=== PATIENT | male | born 1950 | race Caucasian/White ===

== ENCOUNTER 2016-06-04 | Outpatient (CLI) | payer MEDICARE, OTHER | END 2016-06-04 14:34 | disposition critical access hospital (66) | CPT/HCPCS: A0425; A0427 ==

== ENCOUNTER 2016-06-04 14:48 | Inpatient (IN) | payer MEDICARE, OTHER ==
[2016-06-04] MEDS ORDERED: cefTRIAXone 1 GM in SODIUM CHLORIDE 0.9% MINIBAG 100 ML IV STA (15:17)
[2016-06-04] MEDS ORDERED: cefTRIAXone 1 GM VIAL ONE (15:21)
[2016-06-04] MEDS ORDERED: SODIUM CHLORIDE 0.9% 1,000 ML IV ONE (16:44)
[2016-06-04] MEDS ORDERED: ONDANSETRON 4 MG/2 ML VIAL IVP PRN ×2 (17:59→18:45)
[2016-06-04] MEDS ORDERED: SODIUM CHLORIDE FLUSH 0.9% 10 ML SYRINGE IVP PRN ×2 (17:59→18:45)
[2016-06-04] MEDS ORDERED: ONDANSETRON ODT 4 MG TABLET TL PRN ×2 (17:59→18:45)
[2016-06-04] MEDS ORDERED: SODIUM CHLORIDE 0.9% 1,000 ML IV SCH (18:00)
[2016-06-04] MEDS: DOCUSATE SODIUM 283 MG ENEMA PR SCH ×2 (19:18→19:19)
[2016-06-04] MEDS: SODIUM CHLORIDE 0.9% 1,000 ML IV SCH (20:02)
[2016-06-04] MEDS: INSULIN ASPART 300 UNIT/3 ML PEN SUBQ SCH (20:09)
[2016-06-04] MEDS: ASPIRIN EC 81 MG TABLET PO SCH (20:14)
[2016-06-04] MEDS: CHOLECALCIFEROL 1,000 UNIT TABLET PO SCH (20:14)
[2016-06-04] MEDS: METOPROLOL SUCCINATE 50 MG TABLET PO SCH (20:15)
[2016-06-04] MEDS ORDERED: INSULIN ASPART 300 UNIT/3 ML PEN SUBQ SCH (21:00)
[2016-06-04] MEDS ORDERED: METOPROLOL SUCCINATE 50 MG TABLET PO SCH (21:00)
[2016-06-04] MEDS ORDERED: INSULIN GLARGINE 300 UNIT/3 ML PEN SUBQ SCH (21:00)
[2016-06-04] MEDS ORDERED: NON FORMULARY MED (Cholecalciferol (Vitamin D3) [Vitamin D3] 1,000 UNIT) PO SCH (21:00)
[2016-06-04] MEDS ORDERED: tiZANidine 4 MG TABLET PO SCH (21:00)
[2016-06-04] MEDS ORDERED: BACLOFEN 10 MG TABLET PO SCH ×2 (21:00)
[2016-06-04] MEDS ORDERED: ASPIRIN EC 81 MG TABLET PO SCH (21:00)
[2016-06-04] MEDS: tiZANidine 4 MG TABLET PO SCH (21:11)
[2016-06-04] MEDS: SODIUM CHLORIDE FLUSH 0.9% 10 ML SYRINGE IVP SCH (21:46)
[2016-06-04] MEDS: INSULIN GLARGINE 300 UNIT/3 ML PEN SUBQ SCH (21:53)
[2016-06-04] MEDS ORDERED: SODIUM CHLORIDE FLUSH 0.9% 10 ML SYRINGE IVP SCH (22:00)
[2016-06-04] MEDS ORDERED: GABAPENTIN 300 MG CAPSULE PO SCH ×2 (22:00)
[2016-06-05] MEDS: SODIUM CHLORIDE 0.9% 1,000 ML IV SCH (06:30)
[2016-06-05] MEDS: SODIUM CHLORIDE FLUSH 0.9% 10 ML SYRINGE IVP SCH ×3 (06:31→21:52)
[2016-06-05] MEDS ORDERED: INSULIN GLARGINE 300 UNIT/3 ML PEN SUBQ SCH (08:00)
[2016-06-05] MEDS: INSULIN ASPART 300 UNIT/3 ML PEN SUBQ SCH ×4 (08:40→21:24)
[2016-06-05] MEDS ORDERED: NON FORMULARY MED (Multivitamin [Multivitamins] 1 TAB) PO SCH (09:00)
[2016-06-05] MEDS ORDERED: BACLOFEN 10 MG TABLET PO SCH ×2 (09:00→21:00)
[2016-06-05] MEDS ORDERED: POLYETHYLENE GLYCOL 3350 17 GM PACKET PO SCH (09:00)
[2016-06-05] MEDS ORDERED: cefTRIAXone 1 GM in SODIUM CHLORIDE 0.9% MINIBAG 100 ML IV SCH (09:00)
[2016-06-05] MEDS ORDERED: SERTRALINE 50 MG TABLET PO SCH (09:00)
[2016-06-05] MEDS ORDERED: POTASSIUM CHLORIDE 10 MEQ CAPSULE PO SCH (09:00)
[2016-06-05] MEDS: INSULIN GLARGINE 300 UNIT/3 ML PEN SUBQ SCH ×3 (09:29→21:23)
[2016-06-05] MEDS: POTASSIUM CHLORIDE 10 MEQ CAPSULE PO SCH (09:30)
[2016-06-05] MEDS: SERTRALINE 50 MG TABLET PO SCH (09:30)
[2016-06-05] MEDS: CHOLECALCIFEROL 1,000 UNIT TABLET PO SCH ×2 (09:30→21:19)
[2016-06-05] MEDS: MULTIVITAMIN TABLET PO SCH (09:30)
[2016-06-05] MEDS: BACLOFEN 10 MG TABLET PO SCH ×2 (09:30→17:38)
[2016-06-05] MEDS: POLYETHYLENE GLYCOL 3350 17 GM PACKET PO SCH (09:31)
[2016-06-05] MEDS: cefTRIAXone 1 GM in SODIUM CHLORIDE 0.9% MINIBAG 100 ML IV SCH (10:05)
[2016-06-05] MEDS ORDERED: GABAPENTIN 300 MG CAPSULE PO SCH ×3 (12:00→14:00)
[2016-06-05] MEDS ORDERED: COPAXONE 40 MG SCH (17:00)
[2016-06-05] MEDS: GABAPENTIN 300 MG CAPSULE PO SCH ×2 (17:37→21:50)
[2016-06-05] MEDS ORDERED: ATORVASTATIN 10 MG TABLET PO SCH (21:00)
[2016-06-05] MEDS: tiZANidine 4 MG TABLET PO SCH (21:18)
[2016-06-05] MEDS: ASPIRIN EC 81 MG TABLET PO SCH (21:49)
[2016-06-05] MEDS: METOPROLOL SUCCINATE 50 MG TABLET PO SCH (21:50)
[2016-06-05] MEDS: DOCUSATE SODIUM 283 MG ENEMA PR SCH (21:56)
[2016-06-06] MEDS: cefTRIAXone 1 GM in SODIUM CHLORIDE 0.9% MINIBAG 100 ML IV SCH (08:56)
[2016-06-06] MEDS: POLYETHYLENE GLYCOL 3350 17 GM PACKET PO SCH (08:56)
[2016-06-06] MEDS: CHOLECALCIFEROL 1,000 UNIT TABLET PO SCH (08:56)
[2016-06-06] MEDS: GABAPENTIN 300 MG CAPSULE PO SCH (08:56)
[2016-06-06] MEDS: SERTRALINE 50 MG TABLET PO SCH (08:57)
[2016-06-06] MEDS: BACLOFEN 10 MG TABLET PO SCH (08:57)
[2016-06-06] MEDS: POTASSIUM CHLORIDE 10 MEQ CAPSULE PO SCH (08:57)
[2016-06-06] MEDS: MULTIVITAMIN TABLET PO SCH (08:57)
[2016-06-06] MEDS: INSULIN ASPART 300 UNIT/3 ML PEN SUBQ SCH (08:58)
[2016-06-06] MEDS: INSULIN GLARGINE 300 UNIT/3 ML PEN SUBQ SCH (08:59)
[2016-06-06] MEDS ORDERED: LISINOPRIL 20 MG TABLET PO SCH (09:00)
[2016-06-06] MEDS ORDERED: LISINOPRIL 5 MG TABLET PO SCH (09:00)
== END 2016-06-06 09:38 | disposition home or self-care (01) | DRG 70 ==
DX: G93.41 Metabolic encephalopathy (principal); R53.2 Functional quadriplegia; T83.510A Infection and inflammatory reaction due to cystostomy catheter, initial encounter; I20.9 Angina pectoris, unspecified; N18.4 Chronic kidney disease, stage 4 (severe); E11.9 Type 2 diabetes mellitus without complications; N28.9 Disorder of kidney and ureter, unspecified; B95.2 Enterococcus as the cause of diseases classified elsewhere; G81.90 Hemiplegia, unspecified affecting unspecified side; Z86.73 Personal history of transient ischemic attack (TIA), and cerebral infarction without residual deficits; E86.0 Dehydration; N31.9 Neuromuscular dysfunction of bladder, unspecified; G35 Multiple sclerosis; F09 Unspecified mental disorder due to known physiological condition; E11.22 Type 2 diabetes mellitus with diabetic chronic kidney disease; I12.9 Hypertensive chronic kidney disease with stage 1 through stage 4 chronic kidney disease, or unspecified chronic kidney disease; E11.65 Type 2 diabetes mellitus with hyperglycemia; D51.9 Vitamin B12 deficiency anemia, unspecified; E78.5 Hyperlipidemia, unspecified; F32.9 Major depressive disorder, single episode, unspecified; M26.609 Unspecified temporomandibular joint disorder, unspecified side; G50.0 Trigeminal neuralgia; Z87.440 Personal history of urinary (tract) infections; M25.512 Pain in left shoulder; M25.511 Pain in right shoulder; Z79.4 Long term (current) use of insulin; Z79.82 Long term (current) use of aspirin; Z79.899 Other long term (current) drug therapy; Z66 Do not resuscitate

== ENCOUNTER 2017-02-08 15:29 | Outpatient (CLI) | payer MEDICARE, OTHER ==
[2017-02-08 12:50] LABS: BASOPHILS % (AUTO) 0.3 %; EOSINOPHILS # (AUTO) 0.3 10^3/uL (0.0-0.7); EOSINOPHILS % (AUTO) 4.6 %; HCT - HEMATOCRIT 34.4 % (42.0-52.0); HGB - HEMOGLOBIN 11.5 g/dL (14.0-18.0); LYMPHOCYTES # (AUTO) 1.7 10^3/uL (1.5-3.5); LYMPHOCYTES % (AUTO) 28.4 %; MEAN CORPUSCULAR HEMOGLOBIN 28.2 pg (27.0-31.0); MEAN CORPUSCULAR HGB CONC 33.4 g/dL (32.0-36.0); MEAN CORPUSCULAR VOLUME 84.6 fL (80.0-94.0); MEAN PLATELET VOLUME 8.3 fL (7.4-11.4); MONOCYTES # (AUTO) 0.4 10^3/uL (0.0-1.0); MONOCYTES % (AUTO) 6.9 %; NEUTROPHILS # (AUTO) 3.6 10^3/uL (1.5-6.6); NEUTROPHILS % (AUTO) 59.8 %; RED BLOOD COUNT 4.06 10^6/uL (4.70-6.10)
[2017-02-08 13:16] LABS: ALBUMIN/GLOBULIN RATIO 1.1 (1.0-2.2); BILIRUBIN,TOTAL 0.3 mg/dL (0.2-1.0); BUN - BLOOD UREA NITROGEN 29 mg/dL (6-20); CALCIUM 8.9 mg/dL (8.5-10.3); CARBON DIOXIDE - CO2 29 mmol/L (21-32); CHLORIDE 98 mmol/L (101-111); CHOL/HDL RATIO 3.9 (<5.0); CHOLESTEROL 131 mg/dL; CREATININE 1.2 mg/dL (0.6-1.2); GFR - MDRD 60 (>89); GLUCOSE 140 mg/dL (70-100); HDL CHOLESTEROL 34 mg/dL; LDL/HDL RATIO 2.1 (<3.6); MAGNESIUM 2.3 mg/dL (1.7-2.8); PHOSPHORUS 3.6 mg/dL (2.5-4.6); POTASSIUM 4.3 mmol/L (3.5-5.0); SODIUM 135 mmol/L (135-145); TOTAL PROTEIN 7.5 g/dL (6.7-8.2); TRIGLYCERIDES 119 mg/dL; VLDL CHOLESTEROL 24 mg/dL
[2017-02-08 14:01] LABS: HEMOGLOBIN A1C 0.88 g/dL
== END 2017-02-08 15:30 | disposition home or self-care (01) ==
LOC: LAB.WCP 15:29
PROVIDERS: ATTEND Family Medicine
DX: I10 Essential (primary) hypertension (principal); E11.9 Type 2 diabetes mellitus without complications; Z12.5 Encounter for screening for malignant neoplasm of prostate
CPT/HCPCS: 36415; 80053; 80061; 82043; 83036; 83735; 84100; 84443; 85025; G0103; 84153

== ENCOUNTER 2017-04-20 11:59 | Outpatient (CLI) | payer MEDICARE, OTHER | END 2017-04-20 12:00 | disposition EMS.NT | LOC: EMS 11:59 | PROVIDERS: ATTEND Surgery | DX: Z03.89 Encounter for observation for other suspected diseases and conditions ruled out (principal); W17.89XA Other fall from one level to another, initial encounter; Y92.002 Bathroom of unspecified non-institutional (private) residence as the place of occurrence of the external cause ==

== ENCOUNTER 2017-06-27 12:59 | Outpatient (CLI) | payer MEDICARE, OTHER ==
--- NOTE | 2017-06-27 17:19 | Ultrasound Report ---
RETROPERITONEAL ULTRASOUND: 06/27/2017 CLINICAL INDICATION: Followup cyst. TECHNIQUE: Real-time scanning was performed with sales account representative static images obtained. FINDINGS: The right kidney measures 10.1 x 5.0 x 4.7 cm. No focal renal lesion, hydronephrosis, or perinephric collection is present. The left kidney measures 11.5 x 4.7 x 3.9 cm. There is a 5.0 cm cyst, slightly increased in diameter from 02/11/2014, when it measured 4.6 cm. No hydronephrosis, solid renal lesion, or perinephric collection is seen. With the patient's Thomas clamped, the urinary bladder measured 11.2 x 8.3 x 0.1 cm. The bladder wall appears normal. Bilateral ureteral jets are visualized. Following unclamping of the Thomas, no residual is seen. IMPRESSION: SLIGHT INTERVAL INCREASE IN SIZE OF LEFT RENAL CYST. NO SOLID MASS IS IDENTIFIED. TD: 06/27/2017 17:18
== END 2017-06-27 13:00 | disposition home or self-care (01) ==
LOC: DI 12:59
PROVIDERS: ATTEND Physical Medicine & Rehabilitation
DX: Q61.01 Congenital single renal cyst (principal)
CPT/HCPCS: 76770

== ENCOUNTER 2017-08-24 19:53 | Outpatient (CLI) | payer MEDICARE, OTHER | END 2017-08-24 19:54 | disposition critical access hospital (66) | LOC: EMS 19:53 | PROVIDERS: ATTEND Surgery | DX: R53.1 Weakness (principal); R53.83 Other fatigue; R11.0 Nausea | CPT/HCPCS: A0425; A0427 ==

== ENCOUNTER 2017-08-24 20:09 | Emergency (ER) | payer MEDICARE, OTHER ==
[2017-08-24 21:31] LABS: BASOPHILS % (AUTO) 0.4 %; EOSINOPHILS # (AUTO) 0.3 10^3/uL (0.0-0.7); HGB - HEMOGLOBIN 11.6 g/dL (14.0-18.0); LYMPHOCYTES # (AUTO) 1.3 10^3/uL (1.5-3.5); LYMPHOCYTES % (AUTO) 14.4 %; MEAN CORPUSCULAR HEMOGLOBIN 28.2 pg (27.0-31.0); MEAN CORPUSCULAR HGB CONC 32.9 g/dL (32.0-36.0); MEAN CORPUSCULAR VOLUME 85.7 fL (80.0-94.0); MEAN PLATELET VOLUME 7.4 fL (7.4-11.4); MONOCYTES # (AUTO) 0.6 10^3/uL (0.0-1.0); MONOCYTES % (AUTO) 6.8 %; NEUTROPHILS % (AUTO) 75.4 %; PLT - PLATELET COUNT 291 10^3/uL (130-450); RED BLOOD COUNT 4.11 10^6/uL (4.70-6.10); RED CELL DISTRIBUTION WIDTH 13.8 % (12.0-15.0); WHITE BLOOD COUNT 9.3 x10^3/uL (4.8-10.8)
--- NOTE | 2017-08-24 21:33 | ED Physician Documentation ---
History of Present Illness - Stated complaint Stated Complaint: WEAKNESS, NAUSEA - Chief complaint Chief Complaint: General - History obtained from History obtained from: Patient - History of Present Illness Timing: Prior to arrival Pain level max: 0 Pain level now: 0 Improved by: no apparent ameliorating factors; spontaneously resolved Worsened by: no apparent inciting or excacerbating factors - Additonal information Additional information: while watching a game on TV at home tonight, patient had sudden onset nausea ( no vomiting) and confusion. The HPI he provides is vague and thus difficult to determine exactly what the deficit was but was concerned enough to call 911. Patient says while in ambulance, he suddenly felt "back to normal" (per patient) and was able to converse normally with them. He arrives to ED asymptomatic. Review of Systems Constitutional: reports: Reviewed and negative Eyes: reports: Reviewed and negative Ears: reports: Reviewed and negative Nose: reports: Reviewed and negative Throat: reports: Reviewed and negative Cardiac: reports: Reviewed and negative Respiratory: reports: Reviewed and negative GI: reports: Reviewed and negative : denies: Dysuria, Frequency Musculoskeletal: denies: Neck pain, Back pain Neurologic: reports: Focal weakness (chronic BLE (due to MS)), Altered mental status (resolved). denies: Numbness, Headache PD PAST MEDICAL HISTORY - Past Medical History Past Medical History: Yes Cardiovascular: Angina Respiratory: Asthma Neuro: TIA, Multiple sclerosis Endocrine/Autoimmune: Type 2 diabetes GI: Esophageal varices : Renal insuffiency Psych: Depression Musculoskeletal: Hemiplegia Derm: Psoriasis - Past Surgical History Past Surgical History: Yes General: Cholecystectomy - Present Medications Home Medications: Ambulatory Orders Medication Instructions Recorded Confirmed Gabapentin [Neurontin] 600 mg PO 1200,1400 09/02/12 06/25/17 Sertraline HCl [Zoloft] 50 mg PO DAILY 09/02/12 06/25/17 Tizanidine HCl 8 mg PO QPM 09/02/12 06/25/17 Insulin Aspart [Novolog Flexpen] 0 - 10 units SUBQ TIDWM 10/20/14 06/25/17 Insulin Glargine [Lantus Solostar] 40 units SUBQ 0800,2100 10/20/14 06/25/17 Baclofen 20 mg PO 0900,1700 03/01/16 06/25/17 Baclofen 60 mg PO QPM 03/01/16 06/25/17 Gabapentin 300 mg PO 0800,1700,2100 03/01/16 06/25/17 Metoprolol Succinate [Toprol Xl] 50 mg PO QPM 03/01/16 06/25/17 Lisinopril 45 mg PO DAILY 06/05/16 06/25/17 Simvastatin 40 mg PO QPM 06/05/16 06/25/17 carBAMazepine [TEGretol] 100 mg PO DAILY 02/24/17 06/25/17 carBAMazepine [TEGretol] 200 mg PO BID #120 tablet 02/24/17 06/25/17 Ciprofloxacin HCl [Cipro] 500 mg PO BID #13 tablet 08/24/17 - Allergies Allergies/Adverse Reactions: Allergies Allergy/AdvReac Type Severity Reaction Status Date / Time metformin HCl * Allergy Unknown Rash Verified 08/24/17 20:25 [From Glucophage] tamsulosin HCl * Allergy Unknown Rash Verified 08/24/17 20:25 [From Flomax] - Social History Does the pt smoke?: No Smoking Status: Never smoker Does the pt drink ETOH?: No Does the pt have substance abuse?: No - Immunizations Immunizations are current?: No Immunizations: TDAP >10years/unknown - POLST Patient has POLST: Yes PD ED PE NORMAL - Vitals Vital signs reviewed: Yes - General General: Alert and oriented X 3, No acute distress, Well developed/nourished - HEENT HEENT: PERRL, EOMI, Moist mucous membranes - Neck Neck: Supple, no meningeal sign - Cardiac Cardiac: RRR, No murmur, No gallop, No rub - Respiratory Respiratory: No respiratory distress, Clear bilaterally - Abdomen Abdomen: Soft, Non tender - Back Back: No CVA TTP - Derm Derm: Normal color, Warm and dry - Neuro Neuro: Alert and oriented X 3, inbound sales advisor 2-12 intact, No motor deficit (BUE normal strength (BLE 2/5 iliopsoas, which is chronic)), No sensory deficit, Normal speech Eye Opening: Spontaneous Motor: Obeys Commands Verbal: Oriented GCS Score: 15 Results - Vitals Vitals: Vital Signs - 24 hr 08/24/17 08/24/17 08/24/17 20:18 21:15 21:25 Temperature 36.2 C L Heart Rate 67 66 Respiratory 18 17 17 Rate Blood Pressure 107/58 L O2 Saturation 97 99 08/24/17 08/24/17 08/24/17 22:15 22:33 23:13 Temperature Heart Rate 70 71 Respiratory 16 16 16 Rate Blood Pressure 120/70 132/54 H O2 Saturation 98 15 L Oxygen O2 Source Room air - EKG (time done) No standard instances Rate: Rate (enter#) (66) Rhythm: NSR [place]: Normal Intervals: Normal [place] QRS: Normal Ischemia: Normal ST segments, Non specific changes (non specific ST changes V2 V3 which are unchanged compared to previous (both 02/29/16 and 02/26/16)) Compare to prior EKG: Unchanged from prior EKG - Labs Labs: Laboratory Tests 08/24/17 08/24/17 08/24/17 21:10 21:25 21:25 WBC 9.3 RBC 4.11 L Hgb 11.6 L Hct 35.2 L MCV 85.7 MCH 28.2 MCHC 32.9 RDW 13.8 Plt Count 291 MPV 7.4 Neut # 7.0 H Lymph # 1.3 L [place] # 0.6 Eos # 0.3 Baso # 0.0 Absolute Nucleated RBC 0.00 Nucleated RBC % 0.0 Sodium 134 L Potassium 4.2 Chloride 97 L Carbon Dioxide 28 Anion Gap 9.0 BUN 27 H Creatinine 1.3 H Estimated GFR (MDRD) 55 L Glucose 260 H Calcium 8.6 Troponin I Urine Color YELLOW Urine Clarity CLOUDY Urine pH 5.5 Ur Specific [place] 1.020 Urine Protein NEGATIVE Urine Glucose (UA) NEGATIVE Urine Ketones NEGATIVE Urine Occult Blood MODERATE H Urine Nitrite NEGATIVE Urine Bilirubin NEGATIVE Urine Urobilinogen 0.2 (NORMAL) Ur Leukocyte Esterase MODERATE H Urine RBC TNTC H Urine WBC >25 H Urine WBC Clumps PRESENT Ur Squamous Epith Cells RARE Squamous Amorphous Sediment Few Urine Bacteria Many H Urine Mucus Few Strands Ur Microscopic Review INDICATED Urine Culture Comments INDICATED 08/24/17 21:25 WBC RBC Hgb Hct MCV MCH MCHC RDW Plt Count MPV Neut # Lymph # [place] # Eos # Baso # Absolute Nucleated RBC Nucleated RBC % Sodium Potassium Chloride Carbon Dioxide Anion Gap BUN Creatinine Estimated GFR (MDRD) Glucose Calcium Troponin I < 0.04 Urine Color Urine Clarity Urine pH Ur Specific [place] Urine Protein Urine Glucose (UA) Urine Ketones Urine Occult Blood Urine Nitrite Urine Bilirubin Urine Urobilinogen Ur Leukocyte Esterase Urine RBC Urine WBC Urine WBC Clumps Ur Squamous Epith Cells Amorphous Sediment Urine Bacteria Urine Mucus Ur Microscopic Review Urine Culture Comments - Rads (name of study) CT head Radiology: Prelim report reviewed, See rad report PD MEDICAL DECISION MAKING - ED course Complexity details: reviewed results, re-evaluated patient, considered differential, d/w patient ED course: Remained asymptomatic during ED stay. Requests D/C home. Departure - Departure Disposition: Home, Self Care Clinical Impression: Confused Condition: Good Instructions: ED Altered Loc, ED Confusion, ED UTI Cystitis Male Follow-Up: Denis Mccall MD [Provider Admit Priv/Credential] - Prescriptions: Ciprofloxacin HCl [Cipro] 500 mg PO BID #13 tablet Discharge Date/Time: 08/24/17 23:14
[2017-08-24 21:34] LABS: BILIRUBIN,URINE NEGATIVE (NEGATIVE); GLUCOSE, URINE (UA) NEGATIVE (NEGATIVE); KETONES,URINE (UA) NEGATIVE (NEGATIVE); LEUKOCYTE ESTERASE, URINE MODERATE (NEGATIVE); NITRITE,URINE NEGATIVE (NEGATIVE); OCCULT BLOOD,URINE MODERATE (NEGATIVE); PH,URINE 5.5 PH (5.0-7.5); PROTEIN,URINE NEGATIVE (NEGATIVE); UROBILINOGEN,URINE 0.2 (NORMAL) E.U./dL (NORMAL)
[2017-08-24 21:39] LABS: CALCIUM 8.6 mg/dL (8.5-10.3); CREATININE 1.3 mg/dL (0.6-1.2)
[2017-08-24 21:44] LABS: AMORPHOUS SEDIMENT,UR Few /LPF; BACTERIA,URINE Many /HPF (None Seen); CLARITY,URINE CLOUDY (CLEAR); MUCUS,URINE Few Strands; RBC,URINE TNTC /HPF (0-5); SQUAMOUS EPITHELIAL CELL,UR RARE Squamous (<= Few); WBC CLUMPS,URINE PRESENT
--- NOTE | 2017-08-24 22:18 | CT Preliminary Report ---
Exam: CT HEAD W/O IMPRESSION: Generalized age-related cortical atrophic changes without evidence of acute intracranial abnormality. [facility] SITE ID: [id number]
--- NOTE | 2017-08-24 22:26 | CT Report ---
EXAM: CT HEAD EXAM DATE: 08/24/2017 10:09 PM. CLINICAL HISTORY: Altered mental status. COMPARISON: Brain CT from 03/25/2015. TECHNIQUE: Multiaxial CT images were obtained from the foramen magnum to the vertex. Reformats: Coron al. IV contrast: None. In accordance with CT protocol optimization, one or more of the following dose reduction techniques w ere utilized for this exam: automated exposure control, adjustment of mA and/or KV based on patient s ize, or use of iterative reconstructive technique. FINDINGS: Parenchyma: No intraparenchymal hemorrhage. No evidence of mass, midline shift, or CT findings of acu te infarction. Pavon-white differentiation is distinct. Mild diffuse chronic microangiopathic white ma tter changes are evident. Extraaxial Spaces: Normal for age. No subdural or epidural collections identified. Ventricles: The ventricles and cortical sulci are moderately enlarged, consistent with age-related ti ssue loss. Sinuses and orbits: There is new mucosal thickening in the right frontal sinus without an air-fluid l evel. Postsurgical changes from cataract extractions are again noted in the globes. The mastoid sinus es are unremarkable. Bones: No evidence of fracture or calvarial defect. Other: Moderate intracranial atherosclerosis is noted. IMPRESSION: Generalized age-related cortical atrophic changes without evidence of acute intracranial abnormality. [facility] Referring Provider Line: [phone] SITE ID: [id number]
[2017-08-24 22:33] VITALS: BP 132/54
[2017-08-24] MEDS ORDERED: CIPROFLOXACIN 250 MG TABLET PO STA (22:49)
== END 2017-08-24 23:14 | disposition home or self-care (01) ==
LOC: EDUNIT# → ED 20:09
DX: R41.0 Disorientation, unspecified (principal); G35 Multiple sclerosis; G81.90 Hemiplegia, unspecified affecting unspecified side; E11.9 Type 2 diabetes mellitus without complications; Z79.4 Long term (current) use of insulin; Z86.73 Personal history of transient ischemic attack (TIA), and cerebral infarction without residual deficits
CPT/HCPCS: 36415; 70450; 80048; 81001; 84484; 85025; 87077; 87086; 87181; 93005; 99284; A9270; 81003

== ENCOUNTER 2018-03-15 10:01 | Outpatient (CLI) | payer MEDICARE, OTHER | END 2018-03-15 10:02 | disposition EMS.NT | LOC: EMS 10:01 | PROVIDERS: ATTEND Surgery | DX: Z03.89 Encounter for observation for other suspected diseases and conditions ruled out (principal) ==

== ENCOUNTER 2018-07-21 23:34 | Outpatient (CLI) | payer MEDICARE, OTHER | END 2018-07-21 23:35 | disposition critical access hospital (66) | LOC: EMS 23:34 | PROVIDERS: ATTEND Surgery | DX: R41.0 Disorientation, unspecified (principal); E11.65 Type 2 diabetes mellitus with hyperglycemia; Z79.4 Long term (current) use of insulin | CPT/HCPCS: A0425; A0429 ==

== ENCOUNTER 2018-07-21 23:53 | Emergency (ER) | payer MEDICARE, OTHER ==
[2018-07-22 00:31] LABS: BILIRUBIN,URINE NEGATIVE (NEGATIVE); GLUCOSE, URINE (UA) 250 mg/dL (NEGATIVE); KETONES,URINE (UA) NEGATIVE (NEGATIVE); LEUKOCYTE ESTERASE, URINE MODERATE (NEGATIVE); NITRITE,URINE POSITIVE (NEGATIVE); OCCULT BLOOD,URINE MODERATE (NEGATIVE); PH,URINE 5.5 PH (5.0-7.5); PROTEIN,URINE TRACE mg/dL (NEGATIVE); UROBILINOGEN,URINE 0.2 (NORMAL) E.U./dL (NORMAL)
[2018-07-22 00:32] LABS: CLARITY,URINE SL. CLOUDY (CLEAR)
[2018-07-22 00:37] LABS: BACTERIA,URINE Many /HPF (None Seen); EPITHELIAL CELLS,UR None Seen /HPF (<= Few); RBC,URINE 0-5 /HPF (0-5)
[2018-07-22 00:38] LABS: SQUAMOUS EPITHELIAL CELL,UR NONE SEEN (<= Few)
--- NOTE | 2018-07-22 00:50 | ED Physician Documentation ---
History of Present Illness - Stated complaint Stated Complaint: AMS - Chief complaint Chief Complaint: General - History obtained from History obtained from: Patient, Family, EMS - History of Present Illness Timing: Today - Additonal information Additional information: BIBA; per medic report, called 911 because patient "hasn't been himself" today. Patient tells me he feels well and has no c/o. Family is not in ED to provide further HPI/ROS. Review of Systems Constitutional: denies: Fever, Chills, Sweats Cardiac: reports: Reviewed and negative Respiratory: reports: Reviewed and negative GI: reports: Reviewed and negative : reports: Reviewed and negative (has indwelling marion catheter) Neurologic: denies: Generalized weakness, Focal weakness, Numbness, Confused, Altered mental status, Headache PD PAST MEDICAL HISTORY - Past Medical History Cardiovascular: Angina Respiratory: Asthma Endocrine/Autoimmune: Type 2 diabetes GI: Esophageal varices : Renal insuffiency Psych: Depression Musculoskeletal: Hemiplegia Derm: Psoriasis - Past Surgical History Past Surgical History: Yes General: Cholecystectomy - Present Medications Home Medications: Ambulatory Orders Medication Instructions Recorded Confirmed Gabapentin [Neurontin] 600 mg PO 1200,1400 09/02/12 06/21/18 Sertraline HCl [Zoloft] 50 mg PO DAILY 09/02/12 06/21/18 Tizanidine HCl 8 mg PO QPM 09/02/12 06/21/18 Insulin Aspart [Novolog Flexpen] 0 - 10 units SUBQ TIDWM 10/20/14 06/21/18 Insulin Glargine [Lantus Solostar] 40 units SUBQ 0800,2100 10/20/14 06/21/18 Baclofen 20 mg PO 0900,1700 03/01/16 06/21/18 Baclofen 60 mg PO QPM 03/01/16 06/21/18 Gabapentin 300 mg PO 0800,1700,2100 03/01/16 06/21/18 Metoprolol Succinate [Toprol Xl] 50 mg PO QPM 03/01/16 06/21/18 Lisinopril 45 mg PO DAILY 06/05/16 06/21/18 Simvastatin 40 mg PO QPM 06/05/16 06/21/18 carBAMazepine [TEGretol] 100 mg PO DAILY 02/24/17 06/21/18 carBAMazepine [TEGretol] 200 mg PO BID #120 tablet 02/24/17 06/21/18 Ciprofloxacin HCl [Cipro] 500 mg PO BID #13 tablet 08/24/17 06/21/18 Levofloxacin [Levaquin] 750 mg PO DAILY #7 tablet 07/22/18 - Allergies Allergies/Adverse Reactions: Allergies Allergy/AdvReac Type Severity Reaction Status Date / Time metformin HCl * Allergy Unknown Rash Verified 06/21/18 13:25 [From Glucophage] tamsulosin HCl * Allergy Unknown Rash Verified 06/21/18 13:25 [From Flomax] - Social History Does the pt smoke?: No Smoking Status: Never smoker Does the pt drink ETOH?: No Does the pt have substance abuse?: No - Immunizations Immunizations are current?: No Immunizations: TDAP >10years/unknown - POLST Patient has POLST: Yes PD ED PE NORMAL - Vitals Vital signs reviewed: Yes - General General: Alert and oriented X 3, No acute distress, Well developed/nourished - HEENT HEENT: PERRL, EOMI, Moist mucous membranes - Neck Neck: Supple, no meningeal sign - Cardiac Cardiac: RRR, No murmur - Respiratory Respiratory: No respiratory distress, Clear bilaterally - Abdomen Abdomen: Soft, Non tender - Male Male : Other (marion catheter in place with leg bag) - Back Back: No CVA TTP Results - Vitals Vitals: Oxygen O2 Source Room air - Labs Labs: Microbiology 07/22/18 00:05 Urine Culture - Final Urine,Catheterized Serratia Marcescens Laboratory Tests 07/22/18 07/22/18 07/22/18 00:05 01:34 01:34 WBC 13.0 H RBC 3.84 L Hgb 11.0 L Hct 33.0 L MCV 86.1 MCH 28.6 MCHC 33.2 RDW 14.4 Plt Count 255 MPV 7.5 Neut # (Auto) 10.3 H Lymph # (Auto) 1.5 [place] # (Auto) 1.0 Eos # (Auto) 0.1 Baso # (Auto) 0.0 Absolute Nucleated RBC 0.00 Nucleated RBC % 0.0 Sodium 136 Potassium 4.5 Chloride 99 L Carbon Dioxide 28 Anion Gap 9.0 BUN 52 H Creatinine 1.7 H Estimated GFR (MDRD) 40 L Glucose 299 H Lactic Acid Calcium 9.1 Urine Color YELLOW Urine Clarity SL. CLOUDY Urine pH 5.5 Ur Specific [place] 1.025 Urine Protein TRACE Urine Glucose (UA) 250 H Urine Ketones NEGATIVE Urine Occult Blood MODERATE H Urine Nitrite POSITIVE H Urine Bilirubin NEGATIVE Urine Urobilinogen 0.2 (NORMAL) Ur Leukocyte Esterase MODERATE H Urine RBC 0-5 Urine WBC >25 H Ur Epithelial Cells None Seen Ur Squamous Epith Cells NONE SEEN Urine Bacteria Many H Ur Microscopic Review INDICATED Urine Culture Comments INDICATED 07/22/18 01:34 WBC RBC Hgb Hct MCV MCH MCHC RDW Plt Count MPV Neut # (Auto) Lymph # (Auto) [place] # (Auto) Eos # (Auto) Baso # (Auto) Absolute Nucleated RBC Nucleated RBC % Sodium Potassium Chloride Carbon Dioxide Anion Gap BUN Creatinine Estimated GFR (MDRD) Glucose Lactic Acid 1.1 Calcium Urine Color Urine Clarity Urine pH Ur Specific [place] Urine Protein Urine Glucose (UA) Urine Ketones Urine Occult Blood Urine Nitrite Urine Bilirubin Urine Urobilinogen Ur Leukocyte Esterase Urine RBC Urine WBC Ur Epithelial Cells Ur Squamous Epith Cells Urine Bacteria Ur Microscopic Review Urine Culture Comments PD MEDICAL DECISION MAKING - ED course Complexity details: reviewed results, re-evaluated patient, considered diff erential, d/w patient ED course: UA c/w UTI. During ED stay (held for several hours pending ride from family in the AM), he rested comfortably and quietly. I checked on him several times during ED stay, and he was consistently easily awoken to verbal stimulus and had no c/o, felt he was "fine" (per patient), and was AAOx3. Departure - Departure Disposition: 01 Home, Self Care Clinical Impression: UTI (urinary tract infection) Qualifiers: Urinary tract infection type: catheter-associated UTI Indwelling urinary catheter type: indwelling urethral catheter Encounter type: initial encounter Qualified Code(s): T83.511A - Infection and inflammatory reaction due to indwelling urethral catheter, initial encounter Condition: Good Instructions: ED UTI Cystitis Male Follow-Up: Denis Mccall MD [Primary Care Provider] - Prescriptions: Levofloxacin [Levaquin] 750 mg PO DAILY #7 tablet Discharge Date/Time: 07/22/18 09:11
[2018-07-22 01:42] LABS: BASOPHILS % (AUTO) 0.4 %; EOSINOPHILS # (AUTO) 0.1 10^3/uL (0.0-0.7); EOSINOPHILS % (AUTO) 1.1 %; LYMPHOCYTES # (AUTO) 1.5 10^3/uL (1.5-3.5); LYMPHOCYTES % (AUTO) 11.7 %; MEAN CORPUSCULAR HEMOGLOBIN 28.6 pg (27.0-31.0); MEAN CORPUSCULAR HGB CONC 33.2 g/dL (32.0-36.0); MEAN CORPUSCULAR VOLUME 86.1 fL (80.0-94.0); MEAN PLATELET VOLUME 7.5 fL (7.4-11.4); MONOCYTES % (AUTO) 7.8 %; NEUTROPHILS # (AUTO) 10.3 10^3/uL (1.5-6.6); PLT - PLATELET COUNT 255 10^3/uL (130-450); RED BLOOD COUNT 3.84 10^6/uL (4.70-6.10); RED CELL DISTRIBUTION WIDTH 14.4 % (12.0-15.0)
[2018-07-22 01:49] LABS: CALCIUM 9.1 mg/dL (8.5-10.3); CREATININE 1.7 mg/dL (0.6-1.2)
[2018-07-22] MEDS: cefTRIAXone 1 GM in SODIUM CHLORIDE 0.9% MINIBAG 100 ML IV STA (02:18)
[2018-07-22 09:11] VITALS: BP 154/74
== END 2018-07-22 09:11 | disposition home or self-care (01) ==
LOC: EDUNIT# → EDBD → ED 23:53
DX: T83.511A Infection and inflammatory reaction due to indwelling urethral catheter, initial encounter (principal); E11.9 Type 2 diabetes mellitus without complications; G81.90 Hemiplegia, unspecified affecting unspecified side; Z79.4 Long term (current) use of insulin
CPT/HCPCS: 36415; 80048; 81001; 81003; 83605; 85025; 87077; 87086; 87181; 96365; 99283

== ENCOUNTER 2018-07-26 14:20 | Outpatient (CLI) | payer MEDICARE, OTHER | END 2018-07-26 14:21 | disposition critical access hospital (66) | LOC: EMS 14:20 | PROVIDERS: ATTEND Surgery | DX: R41.82 Altered mental status, unspecified (principal); R53.1 Weakness; Z96.0 Presence of urogenital implants | CPT/HCPCS: A0425; A0429 ==

== ENCOUNTER 2018-07-26 14:39 | Emergency (ER) | payer MEDICARE, OTHER ==
[2018-07-26] MEDS ORDERED: SODIUM CHLORIDE 0.9% 1,000 ML IV ONE (15:19)
[2018-07-26] MEDS ORDERED: cefTRIAXone 2 GM in SODIUM CHLORIDE 0.9% MINIBAG 100 ML IV STA (15:19)
[2018-07-26 15:33] LABS: BILIRUBIN,URINE NEGATIVE (NEGATIVE); GLUCOSE, URINE (UA) NEGATIVE (NEGATIVE); KETONES,URINE (UA) NEGATIVE (NEGATIVE); LEUKOCYTE ESTERASE, URINE MODERATE (NEGATIVE); NITRITE,URINE NEGATIVE (NEGATIVE); OCCULT BLOOD,URINE MODERATE (NEGATIVE); PH,URINE 5.5 PH (5.0-7.5); PROTEIN,URINE NEGATIVE (NEGATIVE); UROBILINOGEN,URINE 0.2 (NORMAL) E.U./dL (NORMAL)
[2018-07-26 15:34] LABS: ALBUMIN 3.5 g/dL (3.2-5.5); ALBUMIN/GLOBULIN RATIO 0.9 (1.0-2.2); BASOPHILS % (AUTO) 0.4 %; BILIRUBIN,TOTAL 0.3 mg/dL (0.2-1.0); CALCIUM 8.5 mg/dL (8.5-10.3); CREATININE 2.5 mg/dL (0.6-1.2); EOSINOPHILS # (AUTO) 0.3 10^3/uL (0.0-0.7); EOSINOPHILS % (AUTO) 4.1 %; HGB - HEMOGLOBIN 10.1 g/dL (14.0-18.0); LYMPHOCYTES # (AUTO) 1.2 10^3/uL (1.5-3.5); LYMPHOCYTES % (AUTO) 14.8 %; MAGNESIUM 2.6 mg/dL (1.7-2.8); MEAN CORPUSCULAR HEMOGLOBIN 28.4 pg (27.0-31.0); MEAN CORPUSCULAR HGB CONC 33.2 g/dL (32.0-36.0); MEAN CORPUSCULAR VOLUME 85.5 fL (80.0-94.0); MEAN PLATELET VOLUME 7.9 fL (7.4-11.4); MONOCYTES # (AUTO) 0.6 10^3/uL (0.0-1.0); MONOCYTES % (AUTO) 6.7 %; NEUTROPHILS # (AUTO) 6.2 10^3/uL (1.5-6.6); PLT - PLATELET COUNT 257 10^3/uL (130-450); RED BLOOD COUNT 3.55 10^6/uL (4.70-6.10); TOTAL PROTEIN 7.5 g/dL (6.7-8.2); WHITE BLOOD COUNT 8.3 x10^3/uL (4.8-10.8)
[2018-07-26 15:41] LABS: BACTERIA,URINE Rare /HPF (None Seen); CLARITY,URINE CLEAR (CLEAR); RBC,URINE 0-5 /HPF (0-5); SQUAMOUS EPITHELIAL CELL,UR FEW Squamous (<= Few)
--- NOTE | 2018-07-26 17:24 | ED Physician Documentation ---
PD HPI ALTERED MENTAL STATUS - Stated complaint Stated Complaint: ALOC - Chief complaint Chief Complaint: Neuro - History obtained from History obtained from: Patient, EMS - History of Present Illness Timing - onset: Today (Patient was seen here 6 days ago for general weakness increased over baseline as well as nausea and increased confusion. He was given some IV fluids and was diagnosed with a UTI with cloudy urine from his indwelling catheter. He states he was a little bit better for a day or 2 after the antibiotics here and then continued to have some general weakness. Rx was for Levaquin. He was seen by his primary care 2 days ago and based on the urine culture result was changed from the Levaquin to Bactrim. He had a dose yesterday and then again this morning. He is having increased general weakness, confusion and nausea again today. Urine is still very cloudy.) Timing - duration: Days (6-7 days of some degree of increased weakness, confusion over baseline from his MS.) Timing - details: Gradual onset Quality / character: Confused Associated symptoms: NVD (nausea without vomiting nor diarrhea). No: Fever, Headache, Cough Contributing factors: Other (history of MS with baseline weakness.). No: Anticoagulated, Recent illness Basline status: Disoriented, Home Similar symptoms before: Diagnosis (Has had similar symptoms with urinary tract infections in the past.) Recently seen: Emergency Dept (6 days ago) Review of Systems Ten Systems: 10 systems reviewed and negative Constitutional: reports: Myalgias, Fatigue. denies: Fever Nose: denies: Rhinorrhea / runny nose, Congestion Throat: denies: Sore throat Respiratory: denies: Cough : reports: Other (cloudy urine output from marion) Neurologic: reports: Generalized weakness, Confused, Altered mental status. denies: Focal weakness, Near syncope, Headache PD PAST MEDICAL HISTORY - Past Medical History Cardiovascular: Angina Respiratory: Asthma Neuro: Multiple sclerosis Endocrine/Autoimmune: Type 2 diabetes GI: Esophageal varices : Renal insuffiency Psych: Depression Musculoskeletal: Hemiplegia Derm: Psoriasis - Past Surgical History Past Surgical History: Yes General: Cholecystectomy - Present Medications Home Medications: Ambulatory Orders Medication Instructions Recorded Confirmed Sertraline HCl [Zoloft] 50 mg PO DAILY 09/02/12 06/21/18 Tizanidine HCl 8 mg PO QPM 09/02/12 06/21/18 Insulin Aspart [Novolog Flexpen] 0 - 10 units SUBQ TIDWM 10/20/14 06/21/18 Insulin Glargine [Lantus Solostar] 40 units SUBQ 0800,2100 10/20/14 06/21/18 Baclofen 20 mg PO 0900,1700 03/01/16 06/21/18 Gabapentin 300 mg PO 0800,1700,2100 03/01/16 06/21/18 Metoprolol Succinate [Toprol Xl] 50 mg PO QPM 03/01/16 06/21/18 Lisinopril 45 mg PO DAILY 06/05/16 06/21/18 Simvastatin 40 mg PO QPM 06/05/16 06/21/18 carBAMazepine [TEGretol] 100 mg PO DAILY 02/24/17 06/21/18 carBAMazepine [TEGretol] 200 mg PO BID #120 tablet 02/24/17 06/21/18 Levofloxacin [Levaquin] 750 mg PO DAILY #7 tablet 07/22/18 Aspirin 81 mg PO 07/26/18 Cholecalciferol (Vitamin D3) 1,000 unit PO 07/26/18 [Vitamin D3] Furosemide 40 mg PO DAILY 07/26/18 07/26/18 Glatiramer Acetate [Glatopa] 40 mg SQ 07/26/18 Sulfamethoxazole/Trimethoprim 07/26/18 [Sulfamethoxazole-Tmp Ds Tablet] - Allergies Allergies/Adverse Reactions: Allergies Allergy/AdvReac Type Severity Reaction Status Date / Time metformin HCl * Allergy Unknown Rash Verified 07/26/18 15:01 [From Glucophage] tamsulosin HCl * Allergy Unknown Rash Verified 07/26/18 15:01 [From Flomax] - Social History Does the pt smoke?: No Smoking Status: Never smoker Does the pt drink ETOH?: No Does the pt have substance abuse?: No - Immunizations Immunizations are current?: No Immunizations: TDAP >10years/unknown - POLST Patient has POLST: Yes PD ED PE NORMAL - Vitals Vital signs reviewed: Yes - General General: Well developed/nourished, Other. No: Alert and oriented X 3 (answers questions but slow responses. Oriented to person and place. ) - HEENT HEENT: Atraumatic, Pharynx benign - Neck Neck: Supple, no meningeal sign, No adenopathy - Cardiac Cardiac: RRR, No murmur - Respiratory Respiratory: Clear bilaterally - Abdomen Abdomen: Normal bowel sounds, Soft, Non distended, No organomegaly, Other (some suprapubic tenderness. ) - Male Male : Other (marion in place and draining cloudy yellow urine. No noted blood. ) - Back Back: No CVA TTP - Derm Derm: Normal color, Warm and dry - Neuro Neuro: Other (general symmetric weakness. ) Eye Opening: Spontaneous Motor: Obeys Commands Verbal: Confused GCS Score: 14 Results - Vitals Vitals: Vital Signs - 24 hr 07/26/18 07/26/18 07/26/18 14:42 14:46 15:13 Temperature 36.4 C L Heart Rate 71 69 Respiratory 16 18 Rate Blood Pressure 113/67 118/59 L O2 Saturation 90 L 95 98 07/26/18 07/26/18 07/26/18 15:30 15:36 16:00 Temperature Heart Rate 72 72 68 Respiratory 16 18 16 Rate Blood Pressure 118/59 L 118/65 108/56 L O2 Saturation 97 100 99 07/26/18 07/26/18 18:09 18:16 Temperature Heart Rate 71 76 Respiratory 16 Rate Blood Pressure 151/110 H 146/76 H O2 Saturation 94 Oxygen O2 Source Room air - Labs Labs: Laboratory Tests 07/26/18 07/26/18 07/26/18 15:00 15:00 15:05 WBC 8.3 RBC 3.55 L Hgb 10.1 L Hct 30.4 L MCV 85.5 MCH 28.4 MCHC 33.2 RDW 14.0 Plt Count 257 MPV 7.9 Neut # (Auto) 6.2 Lymph # (Auto) 1.2 L [place] # (Auto) 0.6 Eos # (Auto) 0.3 Baso # (Auto) 0.0 Absolute Nucleated RBC 0.00 Nucleated RBC % 0.0 Sodium 135 Potassium 4.4 Chloride 100 L Carbon Dioxide 24 Anion Gap 11.0 BUN 77 H Creatinine 2.5 H Estimated GFR (MDRD) 26 L Glucose 191 H Lactic Acid Calcium 8.5 Magnesium 2.6 Total Bilirubin 0.3 AST 27 ALT 45 Alkaline Phosphatase 145 H Total Protein 7.5 Albumin 3.5 Globulin 4.0 Albumin/Globulin Ratio 0.9 L Lipase 58 H Urine Color YELLOW Urine Clarity CLEAR Urine pH 5.5 Ur Specific [place] 1.020 Urine Protein NEGATIVE Urine Glucose (UA) NEGATIVE Urine Ketones NEGATIVE Urine Occult Blood MODERATE H Urine Nitrite NEGATIVE Urine Bilirubin NEGATIVE Urine Urobilinogen 0.2 (NORMAL) Ur Leukocyte Esterase MODERATE H Urine RBC 0-5 Urine WBC 4-5 Ur Squamous Epith Cells FEW Squamous Urine Bacteria Rare Ur Microscopic Review INDICATED Urine Culture Comments INDICATED 07/26/18 16:10 WBC RBC Hgb Hct MCV MCH MCHC RDW Plt Count MPV Neut # (Auto) Lymph # (Auto) [place] # (Auto) Eos # (Auto) Baso # (Auto) Absolute Nucleated RBC Nucleated RBC % Sodium Potassium Chloride Carbon Dioxide Anion Gap BUN Creatinine Estimated GFR (MDRD) Glucose Lactic Acid 0.8 Calcium Magnesium Total Bilirubin AST ALT Alkaline Phosphatase Total Protein Albumin Globulin Albumin/Globulin Ratio Lipase Urine Color Urine Clarity Urine pH Ur Specific [place] Urine Protein Urine Glucose (UA) Urine Ketones Urine Occult Blood Urine Nitrite Urine Bilirubin Urine Urobilinogen Ur Leukocyte Esterase Urine RBC Urine WBC Ur Squamous Epith Cells Urine Bacteria Ur Microscopic Review Urine Culture Comments PD MEDICAL DECISION MAKING - ED course Complexity details: reviewed old records, reviewed results, considered differential, d/w patient, d/w healthcare economics consultant (Dr. Reilly, Hospitalist - I had concern for persistent infection causing worsening of his MS weakness and confusion. Report is he did a bit better after some IV antibiotics here 6 days ago and then has been worsening in particular the last day. He had started a antibiotic geared towards the culture results just yesterday. I thought he m ight need to be in the hospital for IV antibiotics until improved. I talked with the hospitalist who came down to see the patient. His feeling was the patient may be having side effects to the Bactrim instead and he will switch the antibiotic and give some nausea medicine. Dr. Reilly and the patient had shared decision making of the patient going home instead.) Departure - Departure Disposition: 01 Home, Self Care Clinical Impression: Increased weakness when ambulating, Nausea UTI (urinary tract infection) Qualifiers: Urinary tract infection type: catheter-associated UTI Indwelling urinary catheter type: indwelling urethral catheter Encounter type: subsequent encounter Qualified Code(s): T83.511D - Infection and inflammatory reaction due to indwelling urethral catheter, subsequent encounter Condition: Stable Record reviewed to determine appropriate education?: Yes Follow-Up: Denis Mccall MD [Primary Care Provider] - Comments: Stop the trimethoprim sulfa antibiotic as this may be causing some your symptoms. Change to the antibiotic prescription of Omnicef. Ondansetron if needed for nausea. Hiprex to reduce subsequent infections. Continue usual medications. Stay well-hydrated. Recheck if not improving in the next few days.
--- NOTE | 2018-07-26 18:08 | MISCELLANEOUS PROVIDER NOTE ---
Miscellaneous Provider Note - - Note: Same day admission/observation discharge Chief complaint: Weakness with associated confusion and nausea HPI: This is pleasant 68 y/o male with a history of multiple sclerosis, depression, hemiplegia, neurogenic bladder on a chronic indwelling Thomas catheter with multiple chronic UTIs in the past with most recent on 05/11 Serratia marcescens multidrug resistance, saw esophageal varices, TIA, insulin requiring type 2 diabetes mellitus, chronic debility ambulating via wheelchair presents with weakness some confusion and nausea after being prescribed Bactrim by PCP. Patient was recently discontinued off Levaquin. Patient had a UA showing 4-5 WBCs per high-power field 0-5 RBCs per high-power field with leukocyte esterase positive creatinine was 2.5 with a history of chronic kidney disease stage III ranging between 1.2 and 1.8. Lactic acid 0.8 LFTs and lipase were unremarkable. Patient's urinary culture dated 07/22/18 showed multidrug- resistant Serratia marcescens sensitive to cephalosporins with indeterminate SREE of 4 to quinolones.Patient was seen with a recurrent Serratia marcescens UTI which on urine culture dated 07/22 shows multidrug-resistant Serratia. Patient was recently taken off Levaquin and placed on Bactrim double strength for which patient became more confused weak and nauseous which precipitated a possible interstitial nephritis with a creatinine of 2.5 patient does have history of chronic kidney disease stage III patient was given IV fluids IV Rocephin for which Serratia is sensitive to and discharged on Keflex 1 g p.o. twice daily along with Hiprex 1 g p.o. twice daily plus Zofran as needed for nausea. Review of systems: 14 point review of systems have been evaluated completed Past medical history: As per above Past surgical history: Cholecystectomy Family history: Noncontributory Social history: Patient denies alcohol abuse tobacco abuse or illicit drug use Home medications: Patient History Medication Instructions Recorded Confirmed Sertraline HCl [Zoloft] 50 mg PO DAILY 09/02/12 06/21/18 Tizanidine HCl 8 mg PO QPM 09/02/12 06/21/18 Insulin Aspart [Novolog Flexpen] 0 - 10 units SUBQ TIDWM 10/20/14 06/21/18 Insulin Glargine [Lantus Solostar] 40 units SUBQ 0800,2100 10/20/14 06/21/18 Baclofen 20 mg PO 0900,1700 03/01/16 06/21/18 Gabapentin 300 mg PO 0800,1700,2100 03/01/16 06/21/18 Metoprolol Succinate [Toprol Xl] 50 mg PO QPM 03/01/16 06/21/18 Lisinopril 45 mg PO DAILY 06/05/16 06/21/18 Simvastatin 40 mg PO QPM 06/05/16 06/21/18 carBAMazepine [TEGretol] 100 mg PO DAILY 02/24/17 06/21/18 Aspirin 81 mg PO 07/26/18 Cholecalciferol (Vitamin D3) 1,000 unit PO 07/26/18 [Vitamin D3] Furosemide 40 mg PO DAILY 07/26/18 07/26/18 Glatiramer Acetate [Glatopa] 40 mg SQ 07/26/18 Sulfamethoxazole/Trimethoprim 07/26/18 [Sulfamethoxazole-Tmp Ds Tablet] Allergies: Metformin, tamsulosin. On examination vital signs are hemodynamically stable patient was afebrile, heart rate is 68, blood pressure 108/56, 16 RR. 98% O2 saturation on 2 L nasal cannula. General: Patient is chronically ill-appearing speaking full sentences on 2 L nasal cannula. HEENT: Pupils equal round react light accommodation extraocular muscle bilateral intact. No buccal lesions. Oropharynx clear. Neck: No JVD no bruits no lymphadenopathy next para CV/lungs: S1-S2 within normal limits no murmurs gallops clicks or rubs. CTA BL Abdomen: Soft nontender nondistended positive bowel sounds all quadrants no HSM next breath /rectal: Patient has an indwelling Thomas catheter with no purulence no hematuria no excoriations from urethral meatus. Next Extremities/skin: Bilateral edema noted with no lesions. 2+ pulses dorsalis pedis Neuro: Patient has baseline multiple sclerosis with weakness and baseline hemiplegia Labs: Reviewed Assessment/plan: 1. Acute recurrent multidrug-resistant Serratia marcescens UTI -We will treat with Keflex 1 g p.o. twice daily for 10 days along with chronic suppression therapy with Hiprex 1 g p.o. twice daily for 10 days. 2. Chronic indwelling Thomas catheter -Continue with Thomas catheter care for chronic indwelling. Will likely need chronic suppression therapy with Hiprex 1 g p.o. twice daily for 10 days. 3. Neurogenic bladder -Continue with Thomas catheter and may need bethanechol as needed to be followed up by outpatient urology or PCP as an outpatient. 4. Multiple sclerosis -Continue with home physical therapy and/or home medications 5. Possible interstitial nephritis secondary to Bactrim double strength -IV fluids discontinue offending agent. 6. Bactrim induced nausea -We will treat with Zofran as needed POLST: Yes Allergies metformin HCl * [From Glucophage] Allergy (Unknown, Verified 07/26/18 15:01) Rash tamsulosin HCl * [From Flomax] Allergy (Unknown, Verified 07/26/18 15:01) Rash Discharge Plan Instructions: Visit Report - Forms: - Referrals: Denis Mccall MD (Primary Care Provider) - Additional text: Stop the trimethoprim sulfa antibiotic as this may be causing some your symptoms. Change to the antibiotic prescription of Omnicef. Ondansetron if needed for nausea. Hiprex to reduce subsequent infections. Continue usual medications. Stay well-hydrated. Recheck if not improving in the next few days. Patient to have Rx for Keflex which is similar to Omnicef in the same category of third-generation cephalosporin. Hiprex to reduce subsequent infections and will be dispensed at 1 g p.o. twice daily along with Keflex at 1 g p.o. twice daily for a total of 10 days. Patient will also receive Zofran as needed for nausea. Patient to return to PCP in 1 or 2 weeks. Continue with all outpatient home medications. May return to the emergency department and/or spouse Ophelia advised to call me on my cell phone. Her phone number is [phone].
[2018-07-26 18:17] VITALS: BP 146/76
== END 2018-07-26 19:22 | disposition home or self-care (01) ==
LOC: EDUNIT# → ED 14:39
DX: T83.511A Infection and inflammatory reaction due to indwelling urethral catheter, initial encounter (principal); R53.1 Weakness; R11.0 Nausea; E11.9 Type 2 diabetes mellitus without complications; Z79.4 Long term (current) use of insulin; Z96.0 Presence of urogenital implants
CPT/HCPCS: 36415; 80053; 81001; 81003; 83605; 83690; 83735; 85025; 87086; 93005; 96361; 96365; 99284

== ENCOUNTER 2018-07-26 19:23 | Outpatient (CLI) | payer MEDICARE, OTHER | END 2018-07-26 19:24 | disposition home or self-care (01) | LOC: EMS 19:23 | PROVIDERS: ATTEND Surgery | DX: R41.0 Disorientation, unspecified (principal); Z74.01 Bed confinement status | CPT/HCPCS: A0425; A0428 ==

== ENCOUNTER 2018-08-21 08:46 | Outpatient (CLI) | payer MEDICARE, OTHER | END 2018-08-21 08:47 | disposition critical access hospital (66) | LOC: EMS 08:46 | PROVIDERS: ATTEND Surgery | DX: R41.0 Disorientation, unspecified (principal); R53.1 Weakness | CPT/HCPCS: A0425; A0429 ==

== ENCOUNTER 2018-08-21 09:04 | Emergency (ER) | payer MEDICARE, OTHER ==
[2018-08-21] MEDS ORDERED: SODIUM CHLORIDE 0.9% 1,000 ML IV ONE (09:31)
[2018-08-21] MEDS ORDERED: cefTRIAXone 1 GM in SODIUM CHLORIDE 0.9% MINIBAG 100 ML IV STA (09:33)
--- NOTE | 2018-08-21 09:38 | ED Physician Documentation ---
History of Present Illness - Stated complaint Stated Complaint: FEVER/CONFUSION - Chief complaint Chief Complaint: General - History obtained from History obtained from: Patient, EMS - History of Present Illness Timing: Today - Additonal information Additional information: 68-year-old male with a history of multiple sclerosis type 2 diabetes and hypertension is usually taken care of in his home with geoff lift and a power chair and and a caregiver during the day. He has a suprapubic catheter in place and he has history of frequent infections. He has had an infection about 1 month ago and he typically will get some decreased level of consciousness associated with these and he has this today. He is brought to the hospital confused able to identify his caregiver and his and the fact that he is going to the hospital but not why he is going or what time of the year it is. He is normally alert and oriented x4. He did not strike his head he did not have a fall. Review of Systems Constitutional: denies: Fever Eyes: denies: Decreased vision Ears: denies: Ear pain Nose: denies: Rhinorrhea / runny nose, Congestion Throat: denies: Sore throat Cardiac: denies: Chest pain / pressure, Palpitations Respiratory: denies: Dyspnea, Cough GI: denies: Abdominal Pain, Nausea, Vomiting : reports: Thomas Problem (cloudy urine). denies: Dysuria, Frequency Skin: denies: Rash Musculoskeletal: denies: Neck pain, Back pain, Extremity pain Neurologic: reports: Confused, Altered mental status. denies: Generalized weakness, Focal weakness, Numbness, Syncope, Seizure, Head injury, LOC PD PAST MEDICAL HISTORY - Past Medical History Cardiovascular: Angina Respiratory: Asthma Neuro: Multiple sclerosis Endocrine/Autoimmune: Type 2 diabetes GI: Esophageal varices : Renal insuffiency Psych: Depression Musculoskeletal: Hemiplegia Derm: Psoriasis - Past Surgical History Past Surgical History: Yes General: Cholecystectomy - Present Medications Home Medications: Ambulatory Orders Medication Instructions Recorded Confirmed Sertraline HCl [Zoloft] 50 mg PO DAILY 09/02/12 06/21/18 Tizanidine HCl 8 mg PO QPM 09/02/12 06/21/18 Insulin Aspart [Novolog Flexpen] 0 - 10 units SUBQ TIDWM 10/20/14 06/21/18 Insulin Glargine [Lantus Solostar] 40 units SUBQ 0800,2100 10/20/14 06/21/18 Baclofen 20 mg PO 0900,1700 03/01/16 06/21/18 Gabapentin 300 mg PO 0800,1700,2100 03/01/16 06/21/18 Metoprolol Succinate [Toprol Xl] 50 mg PO QPM 03/01/16 06/21/18 Lisinopril 45 mg PO DAILY 06/05/16 06/21/18 Simvastatin 40 mg PO QPM 06/05/16 06/21/18 carBAMazepine [TEGretol] 100 mg PO DAILY 02/24/17 06/21/18 carBAMazepine [TEGretol] 200 mg PO BID #120 tablet 02/24/17 06/21/18 Aspirin 81 mg PO 07/26/18 Cholecalciferol (Vitamin D3) 1,000 unit PO 07/26/18 [Vitamin D3] Furosemide 40 mg PO DAILY 07/26/18 07/26/18 Glatiramer Acetate [Glatopa] 40 mg SQ 07/26/18 Sulfamethoxazole/Trimethoprim 1 each PO BID #14 tablet 08/21/18 [Sulfamethoxazole-Tmp Ds Tablet] - Allergies Allergies/Adverse Reactions: Allergies Allergy/AdvReac Type Severity Reaction Status Date / Time metformin HCl * Allergy Unknown Rash Verified 08/21/18 09:27 [From Glucophage] tamsulosin HCl * Allergy Unknown Rash Verified 08/21/18 09:27 [From Flomax] - Social History Does the pt smoke?: No Smoking Status: Never smoker Does the pt drink ETOH?: No Does the pt have substance abuse?: No - Immunizations Immunizations are current?: No Immunizations: TDAP >10years/unknown - POLST Patient has POLST: Yes PD ED PE NORMAL - Vitals Vital signs reviewed: Yes (normal ) - General General: No acute distress, Well developed/nourished, Other (stumbling on words smiles and goes on.) - HEENT HEENT: Atraumatic, PERRL, EOMI - Neck Neck: Supple, no meningeal sign - Cardiac Cardiac: RRR, No murmur - Respiratory Respiratory: No respiratory distress, Clear bilaterally - Abdomen Abdomen: Soft, Non tender - Back Back: No CVA TTP, No spinal TTP - Derm Derm: Normal color, Warm and dry, No rash - Extremities Extremities: No deformity, Other (There is trace pitting edema bilaterally ) - Neuro 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, No motor deficit, No sensory deficit, Normal speech Eye Opening: Spontaneous Motor: Obeys Commands Verbal: Confused GCS Score: 14 - Psych Psych: Normal mood, Normal affect Results - Vitals Vitals: Vital Signs - 24 hr 08/21/18 08/21/18 08/21/18 09:06 10:27 10:53 Temperature 36.8 C Heart Rate 63 63 64 Respiratory 18 18 16 Rate Blood Pressure 129/70 157/86 H 142/81 H O2 Saturation 100 100 99 Oxygen O2 Source Room air - Labs Labs: Laboratory Tests 08/21/18 08/21/18 08/21/18 09:29 09:29 09:29 WBC 5.9 RBC 3.76 L Hgb 10.7 L Hct 32.2 L MCV 85.8 MCH 28.5 MCHC 33.2 RDW 14.5 Plt Count 202 MPV 7.4 Neut # (Auto) 3.9 Lymph # (Auto) 1.4 L [place] # (Auto) 0.3 Eos # (Auto) 0.2 Baso # (Auto) 0.0 Absolute Nucleated RBC 0.00 Nucleated RBC % 0.0 Sodium 140 Potassium 4.2 Chloride 99 L Carbon Dioxide 29 Anion Gap 12.0 BUN 43 H Creatinine 1.3 H Estimated GFR (MDRD) 55 L Glucose 100 Lactic Acid 0.7 Calcium 9.0 Total Bilirubin 0.2 AST 15 ALT 18 Alkaline Phosphatase 109 Total Protein 7.7 Albumin 3.9 Globulin 3.8 Albumin/Globulin Ratio 1.0 Lipase 75 H Urine Color Urine Clarity Urine pH Ur Specific [place] Urine Protein Urine Glucose (UA) Urine Ketones Urine Occult Blood Urine Nitrite Urine Bilirubin Urine Urobilinogen Ur Leukocyte Esterase Urine RBC Urine WBC Ur Squamous Epith Cells Urine Bacteria Ur Microscopic Review Urine Culture Comments 08/21/18 09:29 WBC RBC Hgb Hct MCV MCH MCHC RDW Plt Count MPV Neut # (Auto) Lymph # (Auto) [place] # (Auto) Eos # (Auto) Baso # (Auto) Absolute Nucleated RBC Nucleated RBC % Sodium Potassium Chloride Carbon Dioxide Anion Gap BUN Creatinine Estimated GFR (MDRD) Glucose Lactic Acid Calcium Total Bilirubin AST ALT Alkaline Phosphatase Total Protein Albumin Globulin Albumin/Globulin Ratio Lipase Urine Color YELLOW Urine Clarity HAZY Urine pH 5.5 Ur Specific [place] 1.015 Urine Protein TRACE Urine Glucose (UA) NEGATIVE Urine Ketones NEGATIVE Urine Occult Blood MODERATE H Urine Nitrite POSITIVE H Urine Bilirubin NEGATIVE Urine Urobilinogen 0.2 (NORMAL) Ur Leukocyte Esterase MODERATE H Urine RBC 6-10 H Urine WBC 11-25 H Ur Squamous Epith Cells NONE SEEN Urine Bacteria Few Ur Microscopic Review INDICATED Urine Culture Comments INDICATED PD MEDICAL DECISION MAKING - ED course Complexity details: reviewed results, re-evaluated patient, considered differential, d/w patient, d/w family ED course: 68-year-old male with a history of MS and an indwelling Thomas catheter has another infection. He is administered saline and Rocephin and he has improvement in his level of interaction. He is ready to go home. His lactate is normal white blood cell count is normal. Departure - Departure Disposition: Home, Self Care Clinical Impression: UTI (urinary tract infection) Qualifiers: Urinary tract infection type: catheter-associated UTI Indwelling urinary catheter type: cystostomy catheter Encounter type: initial encounter Qualified Code(s): T83.510A - Infection and inflammatory reaction due to cystostomy catheter, initial encounter; N39.0 - Urinary tract infection, site not specified Condition: Stable Instructions: ED UTI Cystitis Male Follow-Up: Denis Mccall MD [Primary Care Provider] - Prescriptions: Sulfamethoxazole/Trimethoprim [Sulfamethoxazole-Tmp Ds Tablet] 1 each PO BID #14 tablet
[2018-08-21 09:41] LABS: BASOPHILS % (AUTO) 0.3 %; EOSINOPHILS # (AUTO) 0.2 10^3/uL (0.0-0.7); EOSINOPHILS % (AUTO) 3.8 %; HGB - HEMOGLOBIN 10.7 g/dL (14.0-18.0); LYMPHOCYTES # (AUTO) 1.4 10^3/uL (1.5-3.5); LYMPHOCYTES % (AUTO) 24.2 %; MEAN CORPUSCULAR HEMOGLOBIN 28.5 pg (27.0-31.0); MEAN CORPUSCULAR HGB CONC 33.2 g/dL (32.0-36.0); MEAN CORPUSCULAR VOLUME 85.8 fL (80.0-94.0); MEAN PLATELET VOLUME 7.4 fL (7.4-11.4); MONOCYTES # (AUTO) 0.3 10^3/uL (0.0-1.0); MONOCYTES % (AUTO) 5.8 %; NEUTROPHILS # (AUTO) 3.9 10^3/uL (1.5-6.6); NEUTROPHILS % (AUTO) 65.9 %; PLT - PLATELET COUNT 202 10^3/uL (130-450); RED BLOOD COUNT 3.76 10^6/uL (4.70-6.10); RED CELL DISTRIBUTION WIDTH 14.5 % (12.0-15.0); WHITE BLOOD COUNT 5.9 x10^3/uL (4.8-10.8)
[2018-08-21 09:43] LABS: BILIRUBIN,URINE NEGATIVE (NEGATIVE); GLUCOSE, URINE (UA) NEGATIVE (NEGATIVE); KETONES,URINE (UA) NEGATIVE (NEGATIVE); LEUKOCYTE ESTERASE, URINE MODERATE (NEGATIVE); NITRITE,URINE POSITIVE (NEGATIVE); OCCULT BLOOD,URINE MODERATE (NEGATIVE); PH,URINE 5.5 PH (5.0-7.5); PROTEIN,URINE TRACE mg/dL (NEGATIVE); UROBILINOGEN,URINE 0.2 (NORMAL) E.U./dL (NORMAL)
[2018-08-21 09:44] LABS: CLARITY,URINE HAZY (CLEAR)
[2018-08-21 09:54] LABS: ALBUMIN 3.9 g/dL (3.2-5.5); BILIRUBIN,TOTAL 0.2 mg/dL (0.2-1.0); CREATININE 1.3 mg/dL (0.6-1.2); TOTAL PROTEIN 7.7 g/dL (6.7-8.2)
[2018-08-21 09:57] LABS: BACTERIA,URINE Few /HPF (None Seen); SQUAMOUS EPITHELIAL CELL,UR NONE SEEN (<= Few)
[2018-08-21 12:31] VITALS: BP 160/76
== END 2018-08-21 13:00 | disposition home or self-care (01) ==
LOC: EDUNIT# → ED 09:04
DX: T83.510A Infection and inflammatory reaction due to cystostomy catheter, initial encounter (principal); N39.0 Urinary tract infection, site not specified; G35 Multiple sclerosis; I10 Essential (primary) hypertension; E11.29 Type 2 diabetes mellitus with other diabetic kidney complication; Z79.4 Long term (current) use of insulin
CPT/HCPCS: 36415; 80053; 81001; 81003; 83605; 83690; 85025; 87040; 87077; 87086; 87181; 96361; 96374; 99283

== ENCOUNTER 2018-09-05 14:14 | Outpatient (CLI) | payer MEDICARE, OTHER | END 2018-09-05 14:15 | disposition critical access hospital (66) | LOC: EMS 14:14 | PROVIDERS: ATTEND Surgery | DX: R41.0 Disorientation, unspecified (principal) ==

== ENCOUNTER 2018-09-05 14:35 | Observation (INO) | payer MEDICARE, OTHER ==
--- NOTE | 2018-09-05 14:59 | ED Physician Documentation ---
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 He is normally alert and oriented. He denies fever, chest pain or shortness of breath, abdominal pain, nausea or vomiting, or dysuria. Review of his medical records reveals very similar presentation 2 weeks ago, diagnosed with urinary tract infection and treated with IV ceftriazone and outpatient Bactrim. The Bactrim was discontinued by his primary physician, and he completed treatment with daily ceftriazone injections in [place] [facility]. He has an indwelling suprapubic catheter with history of frequent urinary tract infections. Review of Systems Constitutional: reports: Fatigue. denies: Fever Eyes: denies: Irritation Nose: denies: Congestion Throat: denies: Sore throat Cardiac: denies: Chest pain / pressure Respiratory: denies: Dyspnea, Cough GI: denies: Abdominal Pain, Nausea, Diarrhea : reports: Other (Suprapubic catheter.). denies: Dysuria Skin: denies: Rash Musculoskeletal: reports: Extremity swelling (chronically) Neurologic: reports: Generalized weakness. denies: Focal weakness, Numbness, Headache PD PAST MEDICAL HISTORY - Past Medical History Cardiovascular: Angina Respiratory: Asthma Neuro: Multiple sclerosis Endocrine/Autoimmune: Type 2 diabetes GI: Esophageal varices : Renal insuffiency Psych: Depression Musculoskeletal: Hemiplegia Derm: Psoriasis - Past Surgical History Past Surgical History: Yes General: Cholecystectomy - Present Medications Home Medications: Ambulatory Orders Medication Instructions Recorded Confirmed Sertraline HCl [Zoloft] 50 mg PO DAILY 09/02/12 09/05/18 Tizanidine HCl 8 mg PO QPM 09/02/12 09/05/18 Insulin Aspart [Novolog Flexpen] 0 - 10 units SUBQ TIDWM 10/20/14 09/05/18 Insulin Glargine [Lantus Solostar] 40 units SUBQ 0800,2100 10/20/14 09/05/18 Baclofen 20 mg PO 0900,1700 03/01/16 09/05/18 Gabapentin 300 mg PO 0800,1700,2100 03/01/16 09/05/18 Metoprolol Succinate [Toprol Xl] 50 mg PO QPM 03/01/16 09/05/18 Lisinopril 45 mg PO DAILY 06/05/16 09/05/18 Simvastatin 40 mg PO QPM 06/05/16 09/05/18 carBAMazepine [TEGretol] 100 mg PO DAILY 02/24/17 09/05/18 carBAMazepine [TEGretol] 200 mg PO BID #120 tablet 02/24/17 09/05/18 Aspirin 81 mg PO DAILY 07/26/18 09/05/18 Cholecalciferol (Vitamin D3) 1,000 unit PO DAILY 07/26/18 09/05/18 [Vitamin D3] Furosemide 40 mg PO DAILY 07/26/18 09/05/18 Glatiramer Acetate [Glatopa] 40 mg SQ DAILY 07/26/18 09/05/18 Sulfamethoxazole/Trimethoprim 1 each PO BID #14 tablet 08/21/18 09/05/18 [Sulfamethoxazole-Tmp Ds Tablet] - Allergies Allergies/Adverse Reactions: Allergies Allergy/AdvReac Type Severity Reaction Status Date / Time metformin HCl * Allergy Unknown Rash Verified 09/05/18 14:43 [From Glucophage] tamsulosin HCl * Allergy Unknown Rash Verified 09/05/18 14:43 [From Flomax] sulfamethoxazole AdvReac Hallucinati Verified 09/05/18 14:43 [From Bactrim] ons trimethoprim [From Bactrim] AdvReac Hallucinati Verified 09/05/18 14:43 ons - Social History Does the pt smoke?: No Smoking Status: Never smoker Does the pt drink ETOH?: No Does the pt have substance abuse?: No - Immunizations Immunizations are current?: No Immunizations: TDAP >10years/unknown - POLST Patient has POLST: Yes PD ED PE NORMAL - Vitals Vital signs reviewed: Yes (low grade temp) - General General: Other (Alert but confused male who appears fatigued.) - HEENT HEENT: Atraumatic, EOMI, Moist mucous membranes, Pharynx benign - Neck Neck: Supple, no meningeal sign, No adenopathy, No bruit - Cardiac Cardiac: RRR - Respiratory Respiratory: No respiratory distress, Clear bilaterally - Abdomen Abdomen: Soft, Non tender, Other (Rotund abdomen, with cholecystectomy scar in the right upper quadrant.) - Back Back: No CVA TTP - Derm Derm: No rash - Extremities Extremities: No tenderness to palpate, No calf tenderness / cord, Other (2+ pedal edema bilaterally.) - Neuro Neuro: Other (Alert, disoriented to year, stating it is 1999 and something. He exhibits generalized weakness, and after holding his arms up for approximately 60 seconds he lets the left arm fall. There is no pronator drift. There is no light touch sensory deficit detected.) Eye Opening: Spontaneous Motor: Obeys Commands Verbal: Confused GCS Score: 14 Results - Vitals Vitals: Vital Signs - 24 hr 09/05/18 09/05/18 09/05/18 14:40 15:00 16:08 Temperature 99.5 C H Heart Rate 82 82 84 Respiratory 14 14 11 L Rate Blood Pressure 138/79 H 138/79 H 157/67 H O2 Saturation 96 97 96 09/05/18 17:41 Temperature 37.1 C Heart Rate 90 Respiratory 12 Rate Blood Pressure 108/75 O2 Saturation 97 Oxygen O2 Source Room air - EKG (time done) 14:46 Rate: Rate (enter#) (80) Rhythm: NSR, LAE [place]: Normal Ischemia: Normal ST segments Other comments: Other comments (RSR' in V1.) Compare to prior EKG: Unchanged from prior EKG Computer interpretation: Agree with computer - Labs Labs: Laboratory Tests 09/05/18 09/05/18 09/05/18 15:05 15:05 15:05 WBC 12.0 H RBC 3.65 L Hgb 10.2 L Hct 31.9 L MCV 87.2 MCH 28.1 MCHC 32.2 RDW 14.9 Plt Count 294 MPV 7.4 Neut # (Auto) 9.3 H Lymph # (Auto) 1.3 L [place] # (Auto) 1.0 Eos # (Auto) 0.2 Baso # (Auto) 0.0 Absolute Nucleated RBC 0.00 Nucleated RBC % 0.0 Sodium 134 L Potassium 4.6 Chloride 97 L Carbon Dioxide 24 Anion Gap 13.0 BUN 43 H Creatinine 1.5 H Estimated GFR (MDRD) 46 L Glucose 292 H Lactic Acid Calcium 8.6 Total Bilirubin 0.4 AST 26 ALT 32 Alkaline Phosphatase 127 H Troponin I < 0.04 Total Protein 7.4 Albumin 3.5 Globulin 3.9 Albumin/Globulin Ratio 0.9 L Lipase 56 H Urine Color Urine Clarity Urine pH Ur Specific [place] Urine Protein Urine Glucose (UA) Urine Ketones Urine Occult Blood Urine Nitrite Urine Bilirubin Urine Urobilinogen Ur Leukocyte Esterase Urine RBC Urine WBC Urine WBC Cl[place] Ur Squamous Epith Cells Urine Bacteria Ur Microscopic Review Urine Culture Comments 09/05/18 09/05/18 15:05 15:08 WBC RBC Hgb Hct MCV MCH MCHC RDW Plt Count MPV Neut # (Auto) Lymph # (Auto) [place] # (Auto) Eos # (Auto) Baso # (Auto) Absolute Nucleated RBC Nucleated RBC % Sodium Potassium Chloride Carbon Dioxide Anion Gap BUN Creatinine Estimated GFR (MDRD) Glucose Lactic Acid 1.3 Calcium Total Bilirubin AST ALT Alkaline Phosphatase Troponin I Total Protein Albumin Globulin Albumin/Globulin Ratio Lipase Urine Color YELLOW Urine Clarity CLEAR Urine pH 5.5 Ur Specific [place] 1.010 Urine Protein NEGATIVE Urine Glucose (UA) 250 H Urine Ketones NEGATIVE Urine Occult Blood TRACE-INTA Urine Nitrite POSITIVE H Urine Bilirubin NEGATIVE Urine Urobilinogen 0.2 (NORMAL) Ur Leukocyte Esterase SMALL H Urine RBC 0-5 Urine WBC 6-10 H Urine WBC Clumps PRESENT Ur Squamous Epith Cells NONE SEEN Urine Bacteria Rare Ur Microscopic Review INDICATED Urine Culture Comments INDICATED Procedures - General procedure General procedure: Suprapubic Catheter placement: After removing the old suprapubic Thomas catheter, under sterile technique a new 16 [place] Thomas catheter was placed in the suprapubic tract. The balloon was inflated with 10 mL normal saline without difficulty. Sterile dressing was applied. There were no complications. PD MEDICAL DECISION MAKING - ED course Complexity details: reviewed old records, reviewed results, re-evaluated patient, considered differential, d/w patient ED course: The patient's presentation is most consistent with recurrent urinary tract infection. He does not appear septic, and I doubt pyelonephritis. His white blood cell count is mildly elevated at 12.0. Lactate level is normal at 1.3. Urinalysis is positive for pyuria and bacteriuria. Review of his previous urine cultures reveals repeated growth of Serratia Marcescens, which is resistant to multiple antibiotics, but sensitive to ceftriaxone, cefepime, and Zosyn. It is sensitive to Bactrim, but the patient is not able to take sulfa medications. There is intermediate sensitivity to quinolones, but quinolones are contraindicated with his MS medication, Tizanidine. Treatment in the emergency department included administration of ceftriaxone 1 g IV. His suprapubic catheter was replaced. I discussed his condition with Dr. Pierson, who agrees that with his typical antibiotic resistance pattern he will need to be treated with IV antibiotics, and best management practice warrants hospitalization on observation status for further evaluation and treatment. Departure - Departure Disposition: ED Place in Observation Clinical Impression: UTI (lower urinary tract infection), Functional quadriplegia secondary to multiple sclerosis T2DM (type 2 diabetes mellitus) Qualifiers: Diabetes mellitus intermediate insulin use: with terminal supervisor use Diabetes mellitus complication status: with hyperglycemia Qualified Code(s): E11.65 - Type 2 diabetes mellitus with hyperglycemia Condition: Stable Follow-Up: Denis Mccall MD [Provider Admit Priv/Credential] -
[2018-09-05 15:11] LABS: BASOPHILS % (AUTO) 0.2 %; EOSINOPHILS # (AUTO) 0.2 10^3/uL (0.0-0.7); EOSINOPHILS % (AUTO) 1.8 %; HGB - HEMOGLOBIN 10.2 g/dL (14.0-18.0); LYMPHOCYTES # (AUTO) 1.3 10^3/uL (1.5-3.5); LYMPHOCYTES % (AUTO) 11.2 %; MEAN CORPUSCULAR HEMOGLOBIN 28.1 pg (27.0-31.0); MEAN CORPUSCULAR HGB CONC 32.2 g/dL (32.0-36.0); MEAN CORPUSCULAR VOLUME 87.2 fL (80.0-94.0); MEAN PLATELET VOLUME 7.4 fL (7.4-11.4); MONOCYTES % (AUTO) 8.7 %; NEUTROPHILS # (AUTO) 9.3 10^3/uL (1.5-6.6); NEUTROPHILS % (AUTO) 78.1 %; PLT - PLATELET COUNT 294 10^3/uL (130-450); RED BLOOD COUNT 3.65 10^6/uL (4.70-6.10); RED CELL DISTRIBUTION WIDTH 14.9 % (12.0-15.0)
[2018-09-05 15:20] LABS: BILIRUBIN,URINE NEGATIVE (NEGATIVE); GLUCOSE, URINE (UA) 250 mg/dL (NEGATIVE); KETONES,URINE (UA) NEGATIVE (NEGATIVE); LEUKOCYTE ESTERASE, URINE SMALL (NEGATIVE); NITRITE,URINE POSITIVE (NEGATIVE); OCCULT BLOOD,URINE TRACE-INTA (NEGATIVE); PH,URINE 5.5 PH (5.0-7.5); PROTEIN,URINE NEGATIVE (NEGATIVE); UROBILINOGEN,URINE 0.2 (NORMAL) E.U./dL (NORMAL)
[2018-09-05 15:21] LABS: ALBUMIN 3.5 g/dL (3.2-5.5); ALBUMIN/GLOBULIN RATIO 0.9 (1.0-2.2); BILIRUBIN,TOTAL 0.4 mg/dL (0.2-1.0); CALCIUM 8.6 mg/dL (8.5-10.3); CREATININE 1.5 mg/dL (0.6-1.2); TOTAL PROTEIN 7.4 g/dL (6.7-8.2)
[2018-09-05 15:23] LABS: CLARITY,URINE CLEAR (CLEAR)
[2018-09-05 15:40] LABS: BACTERIA,URINE Rare /HPF (None Seen); RBC,URINE 0-5 /HPF (0-5); SQUAMOUS EPITHELIAL CELL,UR NONE SEEN (<= Few); WBC CLUMPS,URINE PRESENT
[2018-09-05] MEDS ORDERED: cefTRIAXone 1 GM in SODIUM CHLORIDE 0.9% MINIBAG 100 ML IV STA (15:51)
[2018-09-05] MEDS ORDERED: oxyCODONE 5 MG TABLET PO PRN (18:49)
[2018-09-05] MEDS ORDERED: ONDANSETRON 4 MG/2 ML VIAL IVP PRN (18:49)
[2018-09-05] MEDS ORDERED: SODIUM CHLORIDE FLUSH 0.9% 10 ML SYRINGE IVP PRN (18:49)
[2018-09-05] MEDS ORDERED: ONDANSETRON ODT 4 MG TABLET TL PRN (18:49)
[2018-09-05 19:26] LABS: HB2 TOTAL 10.7 g/dL; HEMOGLOBIN A1C 0.66 g/dL; HEMOGLOBIN A1C % 7.8 % (4.6-6.2)
--- NOTE | 2018-09-05 19:47 | HISTORY & PHYSICAL EXAMINATION ---
Chief Complaint - Chief Complaint Chief Complaint: fatigue, generalized weakness with associated confusion History of Present Illness - Admitted From Admitted From:: ED - History Obtained From Records Reviewed: yes History obtained from: ED, med records Exam Limitations: Yes with AMS - History of Present Illness HPI Comment/Other: The patient is a 68-year-old male with a history of multiple sclerosis, Spastic hemiplegia, insulin-dependent diabetes, Chronic indwelling suprapubic Thomas catheter, Chronic kidney disease stage III, esophageal varices, psoriasis, asthma, angina, and hypertension, who presents with confusion stating, "my mind has not been working straight." 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 He is normally alert and oriented. He denies fever, chest pain or shortness of breath, abdominal pain, nausea or vomiting, or dysuria. Review of his medical records reveals very similar presentation 2 weeks ago, diagnosed with urinary tract infection and treated with IV ceftriazone and outpatient Bactrim. The Bactrim was discontinued by his primary physician, due to possible acute interstitial nephritis, and he completed treatment with daily ceftriazone injections in the [facility]. He has an indwelling suprapubic catheter with history of frequent urinary tract inf ections. On lab analysis patient had a leukocytosis with a WBC of 12.0, afebrile, Labile blood pressures with 105/62 (155/82) C's, non-hypoxemic nontachypneic with hemoglobin of 10.2 with a MCV of 87.2, lactic acid was 1.3, glucose of 292, normal electrolytes, creatinine 1.5 with baseline ranging between 1.2-2.0 with prior history of chronic kidney disease stage III, LFTs and lipase were within normal limits. EKG showed normal sinus rhythm at 80 bpm unchanged from prior EKG, UA showed mild pyuria 6-10 WBCs per high-power field, positive nitrites, small leukocyte esterase, prior urine culture on 08/21/18 showed Serratia marcescens multidrug resistant sensitivities to cephalosporins. History - Past Medical History Cardiovascular: reports: Angina Respiratory: reports: Asthma Neuro: reports: Multiple sclerosis Endocrine/Autoimmune: reports: Type 2 diabetes GI: reports: Esophageal varices : reports: Renal insuffiency Psych: reports: Depression Musculoskeletal: reports: Hemiplegia Derm: reports: Psoriasis MRSA Hx?: No - Past Surgical History General: reports: Cholecystectomy - POLST Patient has POLST: Yes Meds/Allgy - Home Medications Home Medications: Ambulatory Orders Medication Instructions Recorded Confirmed Sertraline HCl [Zoloft] 50 mg PO DAILY 09/02/12 09/05/18 Tizanidine HCl 8 mg PO QPM 09/02/12 09/05/18 Insulin Aspart [Novolog Flexpen] 0 - 10 units SUBQ TIDWM 10/20/14 09/05/18 Insulin Glargine [Lantus Solostar] 40 units SUBQ 0800,2100 10/20/14 09/05/18 Baclofen 20 mg PO 0900,1700 03/01/16 09/05/18 Gabapentin 300 mg PO 0800,1700,2100 03/01/16 09/05/18 Metoprolol Succinate [Toprol Xl] 50 mg PO QPM 03/01/16 09/05/18 Lisinopril 45 mg PO DAILY 06/05/16 09/05/18 Simvastatin 40 mg PO QPM 06/05/16 09/05/18 carBAMazepine [TEGretol] 100 mg PO DAILY 02/24/17 09/05/18 carBAMazepine [TEGretol] 200 mg PO BID #120 tablet 02/24/17 09/05/18 Aspirin 81 mg PO DAILY 07/26/18 09/05/18 Cholecalciferol (Vitamin D3) 1,000 unit PO DAILY 07/26/18 09/05/18 [Vitamin D3] Furosemide 40 mg PO DAILY 07/26/18 09/05/18 Glatiramer Acetate [Glatopa] 40 mg SQ DAILY 07/26/18 09/05/18 Sulfamethoxazole/Trimethoprim 1 each PO BID #14 tablet 08/21/18 09/05/18 [Sulfamethoxazole-Tmp Ds Tablet] - Allergies Allergies/Adverse Reactions: Allergies Allergy/AdvReac Type Severity Reaction Status Date / Time metformin HCl * Allergy Unknown Rash Verified 09/05/18 14:43 [From Glucophage] tamsulosin HCl * Allergy Unknown Rash Verified 09/05/18 14:43 [From Flomax] sulfamethoxazole AdvReac Hallucinati Verified 09/05/18 14:43 [From Bactrim] ons trimethoprim [From Bactrim] AdvReac Hallucinati Verified 09/05/18 14:43 ons Review of Systems - All Other Systems All Other Systems: reports: Reviewed and negative Prior Level of Functionality: Prior functional capacity with home ADLs is unknown Exam - Vital Signs Reviewed Vital Signs: Yes Vital Signs: Vital Signs x48h Temp Pulse Resp BP Pulse Ox 09/05/18 19:43 107 H 18 105/62 97 09/05/18 18:30 100 12 155/82 H 09/05/18 17:41 37.1 C 90 12 108/75 97 09/05/18 16:08 84 11 L 157/67 H 96 09/05/18 15:00 82 14 138/79 H 97 09/05/18 14:40 99.5 C H 82 14 138/79 H 96 - Physical Exam General Appearance: positive: No acute distress, Alert, Lethargic, Other (Confused) Eyes Bilateral: positive: Normal inspection, PERRL, EOMI ENT: positive: Pharynx nml, No signs of dehydration Neck: positive: Nml inspection, Thyroid nml, No JVD, Trachea midline. negative: Thyromegaly Respiratory: positive: Chest non-tender, No respiratory distress, Breath sounds nml Cardiovascular: positive: Regular rate & rhythm, No murmur, No gallop Peripheral Pulses: positive: 2+ Abdomen: positive: Non-tender, No organomegaly, Nml bowel sounds, No distention. negative: Tenderness Back: negative: CVA tenderness (R), CVA tenderness (L) Skin: positive: Color nml, No rash, Warm Extremities: positive: Non-tender, Other (Bilateral pitting edema noted). negative: Calf tenderness Neurologic/Psychiatric: positive: Motor nml, Sensation nml, Disoriented to time, Weakness, Depressed mood/affect. negative: Facial droop, Slurred/abnml speech Sepsis Event Note (H) - Evaluation Possible source of Sepsis: positive: Genitourinary (Labile blood pressures, tachycardia, AMS) - Sepsis Criteria Sepsis Criteria: Recorded Heart Rate greater than 90 bpm, SURVEILLANCE DIRECTOR: altered consciousness (unrelated to primary neuro pathology) Conclusion/Plan - Problem List (1) Acute metabolic encephalopathy Conclusion/Plan: Patient's confusion could possibly be multifactorial as patient is on Zanaflex, Tegretol, baclofen and Zoloft which all could be confounders in the setting of likely recurrence of patient's acute on chronic UTI with likely source from suprapubic indwelling Thomas catheter which has been exchanged in the ED. Would obtain a Tegretol level. In addition will continue with medical management IV antibiotics and fluids and avoid sedate of agents. Lactic acid was unremarkable on admission. (2) UTI (lower urinary tract infection) Conclusion/Plan: Acute on chronic UTI (POA) with associated encephalopathy as patient has a nidus of infection from suprapubic indwelling Thomas catheter which was exchanged in the ED. We will continue with empiric coverage with IV Rocephin as prior urine culture growing Serratia marcescens sensitivities to cephalosporins. Urine culture to be sent out on this admission. Since Serratia species are commonly found in the environment, the clinical presentation should always be taken into account when evaluating recovery of these organisms from clinical specimens in order to distinguish infection from contamination or colonization. May need to consider also the possibility of a AmpC-producing S. marcescens organism, which may not be evident during initial susceptibility testing. Exposure to certain beta-lactams can induce expression of AmpC beta-lactamase to higher levels. Would consider switching over to a Zosyn, aztreonam or a carbapenem. Patient likely will benefit from urine acidification or prophylactic treatment with Hiprex (Methenamine hippurate) 1 g p.o. twice daily, Along with proper hygiene and care for chronic indwelling Thomas catheter. Patient's UTI was present on ad mission. Continue with current medical management. I would query that patient is chronically colonized with Serratia marcescens and the ongoing empiric treatment with IV antibiotics will likely make the species further multidrug resistance, which would be preferable to continue with UTI prophylaxis/suppression with Hiprex. (3) Indwelling catheter present on admission Conclusion/Plan: Status post exchange in the ED on 09/05. Patient has a nidus of infection which likely is the result from the chronic indwelling SP-FC. Continue with current medical management. (4) Multiple sclerosis Conclusion/Plan: Would continue with current medications that patient is on such as baclofen and other antispasmodics. Would hold in the setting of metabolic encephalopathy and restart once patient's mental status has improved. (5) CKD (chronic kidney disease), stage III Conclusion/Plan: > Patient will receive IV fluids, avoiding nephrotoxic agents, baseline creatinine usually remains between 1.2-2.0. Patient was discontinued off Bactrim due to concern for possible interstitial nephritis. Patient will be receiving a cephalosporin which patient is not allergic to. (6) Diabetes mellitus, insulin dependent (IDDM), uncontrolled Conclusion/Plan: Will place patient on a correctional insulin sliding scale plus or minus Lantus for basal coverage. Carb controlled diet. Hemoglobin A1c to follow. Patient is allergic to metformin. 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 (8) Hypertension Conclusion/Plan: We will continue BP meds with parameters due to patient's labile blood pressure medications however blood pressure readings. Qualifiers: Hypertension type: essential hypertension Qualified Code(s): I10 - Essential (primary) hypertension (9) Advanced care planning/counseling discussion Conclusion/Plan: Patient is a full code and medical conditions along with symptom and supportive care provided with trajectory of illness explained in detail to patient. Would consider palliative care services. - Lab Results Fish Bones: 09/05/18 15:05 09/05/18 15:05 - Diagnostic Imaging Results Diagnostic Imaging Results: positive: Final report reviewed - EKG Results EKG Interpreted Independently: Yes EKG Comparison: Unchanged from prior EKG Core Measures - Anticipated LOS I expect patient to be DC'd or transferred within 96 hours.: Yes - Issues Hospital Issues and Management Plan: Would require possible physical therapy, IV fluids along with empiric IV a ntibiotics for recurrence of UTI with associated multifactorial metabolic encephalopathy - DVT/VTE - Prophylaxis VTE/DVT Device ordered at admit?: Yes VTE/DVT Prophylaxis med ordered at admit?: Yes - Stroke - Rehab Assessment Rehab services assessment to be ordered?: No Not Ordered - Medical Reason: Not indicated - AMI - Statin at Admit Aspirin Prescribed on Admit: Yes
[2018-09-05] MEDS ORDERED: MIDODRINE 2.5 MG TABLET PO PRN (20:03)
[2018-09-05] MEDS: ACETAMINOPHEN 325 MG TABLET PO PRN (20:22)
[2018-09-05] MEDS: SODIUM CHLORIDE 0.9% 1,000 ML IV SCH (20:23)
[2018-09-05 20:34] LABS: CARBAMAZEPINE (TEGRETOL) 6.1 ug/mL
[2018-09-05] MEDS: INSULIN ASPART 300 UNIT/3 ML PEN SUBQ SCH (20:34)
[2018-09-05] MEDS: FUROSEMIDE 20 MG/2 ML VIAL IVP SCH (20:34)
[2018-09-05] MEDS ORDERED: METOPROLOL SUCCINATE 50 MG TABLET PO SCH ×2 (21:00)
[2018-09-05] MEDS ORDERED: NON FORMULARY MED (Simvastatin [Simvastatin] 40 MG) PO SCH (21:00)
[2018-09-05] MEDS ORDERED: GABAPENTIN 300 MG CAPSULE PO SCH (21:00)
[2018-09-05] MEDS ORDERED: tiZANidine 4 MG TABLET PO SCH (21:00)
[2018-09-05] MEDS ORDERED: ATORVASTATIN 10 MG TABLET PO SCH (21:00)
[2018-09-05] MEDS ORDERED: carBAMazepine 200 MG TABLET PO SCH (21:00)
[2018-09-05] MEDS ORDERED: HEPARIN 5,000 UNIT/ML VIAL IVP SCH (22:00)
[2018-09-06] MEDS: MEROPENEM 1 GM in SODIUM CHLORIDE 0.9% MINIBAG 100 ML IV SCH ×2 (00:04→07:59)
[2018-09-06] MEDS: ACETAMINOPHEN 325 MG TABLET PO PRN ×2 (00:14→11:34)
[2018-09-06] MEDS: SODIUM CHLORIDE FLUSH 0.9% 10 ML SYRINGE IVP SCH ×2 (01:19→08:18)
[2018-09-06 05:45] LABS: BASOPHILS % (AUTO) 0.5 %; EOSINOPHILS # (AUTO) 0.1 10^3/uL (0.0-0.7); EOSINOPHILS % (AUTO) 1.3 %; HGB - HEMOGLOBIN 9.1 g/dL (14.0-18.0); LYMPHOCYTES # (AUTO) 1.5 10^3/uL (1.5-3.5); LYMPHOCYTES % (AUTO) 19.2 %; MEAN CORPUSCULAR HEMOGLOBIN 28.8 pg (27.0-31.0); MEAN CORPUSCULAR HGB CONC 33.2 g/dL (32.0-36.0); MEAN PLATELET VOLUME 7.3 fL (7.4-11.4); MONOCYTES # (AUTO) 0.7 10^3/uL (0.0-1.0); MONOCYTES % (AUTO) 8.6 %; NEUTROPHILS # (AUTO) 5.6 10^3/uL (1.5-6.6); NEUTROPHILS % (AUTO) 70.4 %; PLT - PLATELET COUNT 261 10^3/uL (130-450); RED BLOOD COUNT 3.17 10^6/uL (4.70-6.10); RED CELL DISTRIBUTION WIDTH 14.5 % (12.0-15.0)
[2018-09-06 05:46] LABS: CALCIUM 8.3 mg/dL (8.5-10.3); CREATININE 1.4 mg/dL (0.6-1.2)
[2018-09-06] MEDS: HEPARIN 5,000 UNIT/ML VIAL SUBQ SCH ×2 (06:54→15:33)
[2018-09-06] MEDS: SODIUM CHLORIDE 0.9% 1,000 ML IV SCH (06:58)
[2018-09-06] MEDS: INSULIN ASPART 300 UNIT/3 ML PEN SUBQ SCH ×2 (08:00→11:35)
[2018-09-06] MEDS: FUROSEMIDE 20 MG/2 ML VIAL IVP SCH (08:18)
[2018-09-06] MEDS ORDERED: CHOLECALCIFEROL 1,000 UNIT TABLET PO SCH (09:00)
[2018-09-06] MEDS ORDERED: BACLOFEN 10 MG TABLET PO SCH (09:00)
[2018-09-06] MEDS ORDERED: SERTRALINE 50 MG TABLET PO SCH (09:00)
[2018-09-06] MEDS ORDERED: FUROSEMIDE 40 MG TABLET PO SCH (09:00)
[2018-09-06] MEDS ORDERED: ASPIRIN CHEW 81 MG TABLET PO SCH (09:00)
[2018-09-06] MEDS ORDERED: cefTRIAXone 1 GM VIAL IVP SCH (09:00)
[2018-09-06] MEDS ORDERED: POLYETHYLENE GLYCOL 3350 17 GM PACKET PO SCH (09:00)
[2018-09-06] MEDS: INSULIN GLARGINE 300 UNIT/3 ML PEN SUBQ SCH ×2 (09:53→10:03)
--- NOTE | 2018-09-06 10:47 | PROVIDER PROGRESS NOTE ---
Subjective - Prog Note Date Prog Note Date: 09/06/18 Prog Note Time: 10:50 - Subjective Subjective: Denies chest pain, cough, congestion. Has no abdominal pain. Feels sleepy but not much more to offer as a complaint. Current Medications - Current Medications Current Medications: Active Medications Generic Name Dose Route Start Last Admin Trade Name Freq PRN Reason Stop Dose Admin Acetaminophen 650 mg 09/05/18 18:49 09/06/18 00:14 Tylenol PO 650 mg Q4HR PRN Administration Pain 1 to 4 Aspirin 81 mg 09/06/18 09:00 09/06/18 08:17 [facility] Aspirin PO 81 mg DAILY JIGNESH Administration Atorvastatin Calcium 20 mg 09/05/18 21:00 09/05/18 21:19 Lipitor PO 20 mg QPM JIGNESH Administration Cholecalciferol 1,000 unit 09/06/18 09:00 09/06/18 08:17 Vitamin D3 PO 1,000 unit DAILY JIGNESH Administration Furosemide 20 mg 09/05/18 21:00 09/06/18 08:18 Lasix Inj 20mg Vial IVP 20 mg BID JIGNESH Administration Heparin Sodium (Porcine) 5,000 unit 09/06/18 06:00 09/06/18 06:54 SUBQ 5,000 unit TID JIGNESH Administration Sodium Chloride 1,000 mls @ 100 mls/hr 09/05/18 19:00 09/06/18 06:58 Normal Saline 0.9% IV 100 mls/hr .Q10H JIGNESH Administration Meropenem 1 gm/ Sodium 100 mls @ 200 mls/hr 09/05/18 23:45 09/06/18 08:29 Chloride IV Infused Q8H JIGNESH Infusion Insulin Aspart 3 - 11 unit 09/05/18 21:00 09/06/18 08:00 Novolog SUBQ 5 unit 0800,1200,1700,2100 JIGNESH Administration Protocol Insulin Glargine 40 unit 09/05/18 21:00 09/06/18 10:03 Lantus Solostar SUBQ 40 unit 0800,2100 JIGNESH Administration Lisinopril 40 mg 09/06/18 11:00 Zestril PO DAILY JIGNESH Lisinopril 5 mg 09/06/18 11:00 Zestril PO DAILY [facility] Metoprolol Succinate 50 mg 09/05/18 21:00 09/05/18 20:35 Toprol Xl PO 50 mg QPM JIGENSH Administration Midodrine 10 mg 09/05/18 20:03 PO TID PRN SBP<100 Ondansetron HCl 4 mg 09/05/18 18:49 Zofran Inj IVP Q6HR PRN Nausea / Vomiting Ondansetron HCl 4 mg 09/05/18 18:49 Zofran Odt TL Q6HR PRN Nausea / Vomiting Oxycodone HCl 5 mg 09/05/18 18:49 Roxicodone PO Q4HR PRN Pain 5 to 7 Glatiramer Acetate [ 1 each 09/06/18 11:00 Glatopa] 40 Mg SUBQ MoWeFr JIGNESH Methenamine 1 each 09/06/18 21:00 Hippurate 1g PO BID JIGNESH Polyethylene Glycol 17 gm 09/06/18 09:00 09/06/18 08:17 Miralax PO 17 gm DAILY JIGNESH Administration Sertraline HCl 50 mg 09/06/18 09:00 09/06/18 08:17 Zoloft PO 50 mg DAILY JIGNESH Administration Sodium Chloride 10 ml 09/05/18 18:49 Normal Saline Flush 0.9% IVP PRN PRN NEEDED PER PROVIDER ORDERS Sodium Chloride 10 ml 09/06/18 01:00 09/06/18 08:18 Normal Saline Flush 0.9% IVP 10 ml 0100,0900,1700 JIGNESH Administration Sertraline HCl [Zoloft] 25 mg PO DAILY 09/02/12 Tizanidine HCl 8 mg PO QPM 09/02/12 Insulin Aspart [Novolog Flexpen] 0 - 10 units SUBQ TIDWM 10/20/14 Insulin Glargine [Lantus Solostar] 40 units SUBQ 0800,2100 10/20/14 Baclofen 20 mg PO 0900,1700 03/01/16 Gabapentin 300 mg PO 0800,1700,2100 03/01/16 Metoprolol Succinate [Toprol Xl] 50 mg PO QPM 03/01/16 Lisinopril 45 mg PO DAILY 06/05/16 Simvastatin 40 mg PO QPM 06/05/16 Aspirin 81 mg PO DAILY 07/26/18 Cholecalciferol (Vitamin D3) [Vitamin D3] 1,000 unit PO DAILY 07/26/18 Furosemide 40 mg PO DAILY 04/05/19 Glatiramer Acetate [Glatopa] 40 mg SQ MOWEFR 07/26/18 Gabapentin [Neurontin] 600 mg PO 1200,1400 09/06/18 carBAMazepine ER [TEGretol XR] 200 mg PO BID 09/06/18 Objective - Vital Signs/Intake & Output Reviewed Vital Signs: Yes Vital Signs: Vital Signs x48h Temp Pulse Resp BP Pulse Ox 09/06/18 07:34 37.3 C 91 18 127/16 L 94 09/06/18 05:05 37.3 C 79 16 112/59 L 94 Intake & Output: Intake & Output 09/03/18 09/04/18 09/05/18 09/06/18 23:59 23:59 23:59 23:59 Intake Total 500 1860.000 Output Total 2300 2400 Balance -1800 -540.000 - Objective General Appearance: positive: No acute distress, Alert, Other (He was sleeping when I walked in, easily awoke to my voice, speech slow but intact. Conversation lucid.6 feet 3 inches tall, 114 kg.) Eyes Bilateral: positive: PERRL ENT: positive: Pharynx nml Neck: positive: No JVD. negative: Stiff neck Respiratory: positive: Chest non-tender, Other (Slow, shallow, unlabored respiration). negative: Wheezes, Rales, Rhonchi Cardiovascular: positive: Regular rate & rhythm. negative: Systolic murmur, Gallop/S4, Friction rub Abdomen: positive: Non-tender, No organomegaly, Nml bowel sounds, No distention Skin: positive: Warm, Dry Extremities: positive: Non-tender, Pedal edema (3+) Neurologic/Psychiatric: positive: Oriented x3, CN's nml (2-12). negative: Motor nml - Lab Results Fish Bones: 09/06/18 05:20 09/06/18 05:20 Other Labs: Lab Results x24hrs 09/06/18 09/06/18 09/06/18 Range/Units 07:22 05:20 05:20 WBC 8.0 (4.8-10.8) x10^3/uL RBC 3.17 L (4.70-6.10) 10^6/uL Hgb 9.1 L (14.0-18.0) g/dL Hct 27.6 L (42.0-52.0) % MCV 87.0 (80.0-94.0) fL MCH 28.8 (27.0-31.0) pg MCHC 33.2 (32.0-36.0) g/dL RDW 14.5 (12.0-15.0) % Plt Count 261 (130-450) 10^3/uL MPV 7.3 L (7.4-11.4) fL Neut # (Auto) 5.6 (1.5-6.6) 10^3/uL Lymph # (Auto) 1.5 (1.5-3.5) 10^3/uL Pitkin # (Auto) 0.7 (0.0-1.0) 10^3/uL Eos # (Auto) 0.1 (0.0-0.7) 10^3/uL Baso # (Auto) 0.0 (0.0-0.1) 10^3/uL Absolute Nucleated RBC 0.00 x10^3/uL Nucleated RBC % 0.0 /100WBC Sodium 136 (135-145) mmol/L Potassium 4.0 (3.5-5.0) mmol/L Chloride 103 (101-111) mmol/L Carbon Dioxide 24 (21-32) mmol/L Anion Gap 9.0 (6-13) BUN 43 H (6-20) mg/dL Creatinine 1.4 H (0.6-1.2) mg/dL Estimated GFR (MDRD) 50 L (>89) Glucose 219 H (70-100) mg/dL POC Whole Bld Glucose 201 H (70 - 100) mg/dL Glycated Hemoglobin (4.6-6.2) % Estim Average Glucose (70-100) Lactic Acid (0.5-2.2) mmol/L Calcium 8.3 L (8.5-10.3) mg/dL Total Bilirubin (0.2-1.0) mg/dL AST (10-42) IU/L ALT (10-60) IU/L Alkaline Phosphatase (42-121) IU/L Troponin I (<0.49) ng/mL Total Protein (6.7-8.2) g/dL Albumin (3.2-5.5) g/dL Globulin (2.1-4.2) g/dL Albumin/Globulin Ratio (1.0-2.2) Lipase (22-51) U/L Urine Color Urine Clarity (CLEAR) Urine pH (5.0-7.5) PH Ur Specific [place] (1.002-1.030) Urine Protein (NEGATIVE) mg/dL Urine Glucose (UA) (NEGATIVE) mg/dL Urine Ketones (NEGATIVE) mg/dL Urine Occult Blood (NEGATIVE) Urine Nitrite (NEGATIVE) Urine Bilirubin (NEGATIVE) Urine Urobilinogen (NORMAL) E.U./dL Ur Leukocyte Esterase (NEGATIVE) Urine RBC (0-5) /HPF Urine WBC (0-3) /HPF Urine WBC Clumps Ur Squamous Epith Cells (<= Few) Urine Bacteria (None Seen) /HPF Ur Microscopic Review Urine Culture Comments Last Dose Date Last Dose Time Carbamazepine ug/mL 09/05/18 09/05/18 09/05/18 Range/Units 20:24 18:00 15:08 WBC (4.8-10.8) x10^3/uL RBC (4.70-6.10) 10^6/uL Hgb (14.0-18.0) g/dL Hct (42.0-52.0) % MCV (80.0-94.0) fL MCH (27.0-31.0) pg MCHC (32.0-36.0) g/dL RDW (12.0-15.0) % Plt Count (130-450) 10^3/uL MPV (7.4-11.4) fL Neut # (Auto) (1.5-6.6) 10^3/uL Lymph # (Auto) (1.5-3.5) 10^3/uL Pitkin # (Auto) (0.0-1.0) 10^3/uL Eos # (Auto) (0.0-0.7) 10^3/uL Baso # (Auto) (0.0-0.1) 10^3/uL Absolute Nucleated RBC x10^3/uL Nucleated RBC % /100WBC Sodium (135-145) mmol/L Potassium (3.5-5.0) mmol/L Chloride (101-111) mmol/L Carbon Dioxide (21-32) mmol/L Anion Gap (6-13) BUN (6-20) mg/dL Creatinine (0.6-1.2) mg/dL Estimated GFR (MDRD) (>89) Glucose (70-100) mg/dL POC Whole Bld Glucose 311 H (70 - 100) mg/dL Glycated Hemoglobin (4.6-6.2) % Estim Average Glucose (70-100) Lactic Acid (0.5-2.2) mmol/L Calcium (8.5-10.3) mg/dL Total Bilirubin (0.2-1.0) mg/dL AST (10-42) IU/L ALT (10-60) IU/L Alkaline Phosphatase (42-121) IU/L Troponin I (<0.49) ng/mL Total Protein (6.7-8.2) g/dL Albumin (3.2-5.5) g/dL Globulin (2.1-4.2) g/dL Albumin/Globulin Ratio (1.0-2.2) Lipase (22-51) U/L Urine Color YELLOW Urine Clarity CLEAR (CLEAR) Urine pH 5.5 (5.0-7.5) PH Ur Specific [place] 1.010 (1.002-1.030) Urine Protein NEGATIVE (NEGATIVE) mg/dL Urine Glucose (UA) 250 H (NEGATIVE) mg/dL Urine Ketones NEGATIVE (NEGATIVE) mg/dL Urine Occult Blood TRACE-INTA (NEGATIVE) Urine Nitrite POSITIVE H (NEGATIVE) Urine Bilirubin NEGATIVE (NEGATIVE) Urine Urobilinogen 0.2 (NORMAL) (NORMAL) E.U./dL Ur Leukocyte Esterase SMALL H (NEGATIVE) Urine RBC 0-5 (0-5) /HPF Urine WBC 6-10 H (0-3) /HPF Urine WBC Clumps PRESENT Ur Squamous Epith Cells NONE SEEN (<= Few) Urine Bacteria Rare (None Seen) /HPF Ur Microscopic Review INDICATED Urine Culture Comments INDICATED Last Dose Date Not Reportable Last Dose Time Not Reportable Carbamazepine 6.1 ug/mL 09/05/18 09/05/18 09/05/18 Range/Units 15:05 15:05 15:05 WBC (4.8-10.8) x10^3/uL RBC (4.70-6.10) 10^6/uL Hgb (14.0-18.0) g/dL Hct (42.0-52.0) % MCV (80.0-94.0) fL MCH (27.0-31.0) pg MCHC (32.0-36.0) g/dL RDW (12.0-15.0) % Plt Count (130-450) 10^3/uL MPV (7.4-11.4) fL Neut # (Auto) (1.5-6.6) 10^3/uL Lymph # (Auto) (1.5-3.5) 10^3/uL Pitkin # (Auto) (0.0-1.0) 10^3/uL Eos # (Auto) (0.0-0.7) 10^3/uL Baso # (Auto) (0.0-0.1) 10^3/uL Absolute Nucleated RBC x10^3/uL Nucleated RBC % /100WBC Sodium (135-145) mmol/L Potassium (3.5-5.0) mmol/L Chloride (101-111) mmol/L Carbon Dioxide (21-32) mmol/L Anion Gap (6-13) BUN (6-20) mg/dL Creatinine (0.6-1.2) mg/dL Estimated GFR (MDRD) (>89) Glucose (70-100) mg/dL POC Whole Bld Glucose (70 - 100) mg/dL Glycated Hemoglobin 7.8 H (4.6-6.2) % Estim Average Glucose 177 H (70-100) Lactic Acid 1.3 (0.5-2.2) mmol/L Calcium (8.5-10.3) mg/dL Total Bilirubin (0.2-1.0) mg/dL AST (10-42) IU/L ALT (10-60) IU/L Alkaline Phosphatase (42-121) IU/L Troponin I < 0.04 (<0.49) ng/mL Total Protein (6.7-8.2) g/dL Albumin (3.2-5.5) g/dL Globulin (2.1-4.2) g/dL Albumin/Globulin Ratio (1.0-2.2) Lipase (22-51) U/L Urine Color Urine Clarity (CLEAR) Urine pH (5.0-7.5) PH Ur Specific [place] (1.002-1.030) Urine Protein (NEGATIVE) mg/dL Urine Glucose (UA) (NEGATIVE) mg/dL Urine Ketones (NEGATIVE) mg/dL Urine Occult Blood (NEGATIVE) Urine Nitrite (NEGATIVE) Urine Bilirubin (NEGATIVE) Urine Urobilinogen (NORMAL) E.U./dL Ur Leukocyte Esterase (NEGATIVE) Urine RBC (0-5) /HPF Urine WBC (0-3) /HPF Urine WBC Clumps Ur Squamous Epith Cells (<= Few) Urine Bacteria (None Seen) /HPF Ur Microscopic Review Urine Culture Comments Last Dose Date Last Dose Time Carbamazepine ug/mL 09/05/18 09/05/18 09/05/18 Range/Units 15:05 15:05 14:49 WBC 12.0 H (4.8-10.8) x10^3/uL RBC 3.65 L (4.70-6.10) 10^6/uL Hgb 10.2 L (14.0-18.0) g/dL Hct 31.9 L (42.0-52.0) % MCV 87.2 (80.0-94.0) fL MCH 28.1 (27.0-31.0) pg MCHC 32.2 (32.0-36.0) g/dL RDW 14.9 (12.0-15.0) % Plt Count 294 (130-450) 10^3/uL MPV 7.4 (7.4-11.4) fL Neut # (Auto) 9.3 H (1.5-6.6) 10^3/uL Lymph # (Auto) 1.3 L (1.5-3.5) 10^3/uL [place]kin # (Auto) 1.0 (0.0-1.0) 10^3/uL Eos # (Auto) 0.2 (0.0-0.7) 10^3/uL Baso # (Auto) 0.0 (0.0-0.1) 10^3/uL Absolute Nucleated RBC 0.00 x10^3/uL Nucleated RBC % 0.0 /100WBC Sodium 134 L (135-145) mmol/L Potassium 4.6 (3.5-5.0) mmol/L Chloride 97 L (101-111) mmol/L Carbon Dioxide 24 (21-32) mmol/L Anion Gap 13.0 (6-13) BUN 43 H (6-20) mg/dL Creatinine 1.5 H (0.6-1.2) mg/dL Estimated GFR (MDRD) 46 L (>89) Glucose 292 H (70-100) mg/dL POC Whole Bld Glucose 271 H (70 - 100) mg/dL Glycated Hemoglobin (4.6-6.2) % Estim Average Glucose (70-100) Lactic Acid (0.5-2.2) mmol/L Calcium 8.6 (8.5-10.3) mg/dL Total Bilirubin 0.4 (0.2-1.0) mg/dL AST 26 (10-42) IU/L ALT 32 (10-60) IU/L Alkaline Phosphatase 127 H (42-121) IU/L Troponin I (<0.49) ng/mL Total Protein 7.4 (6.7-8.2) g/dL Albumin 3.5 (3.2-5.5) g/dL Globulin 3.9 (2.1-4.2) g/dL Albumin/Globulin Ratio 0.9 L (1.0-2.2) Lipase 56 H (22-51) U/L Urine Color Urine Clarity (CLEAR) Urine pH (5.0-7.5) PH Ur Specific [place] (1.002-1.030) Urine Protein (NEGATIVE) mg/dL Urine Glucose (UA) (NEGATIVE) mg/dL Urine Ketones (NEGATIVE) mg/dL Urine Occult Blood (NEGATIVE) Urine Nitrite (NEGATIVE) Urine Bilirubin (NEGATIVE) Urine Urobilinogen (NORMAL) E.U./dL Ur Leukocyte Esterase (NEGATIVE) Urine RBC (0-5) /HPF Urine WBC (0-3) /HPF Urine WBC Clumps Ur Squamous Epith Cells (<= Few) Urine Bacteria (None Seen) /HPF Ur Microscopic Review Urine Culture Comments Last Dose Date Last Dose Time Carbamazepine ug/mL ABX Reporting Has patient been on IV antibiotics over the past 48 hours?: Yes Sepsis Event Note (H) - Evaluation Possible source of Sepsis: positive: Genitourinary (Labile blood pressures, tachycardia, AMS) - Sepsis Criteria Sepsis Criteria: Recorded Heart Rate greater than 90 bpm, BOTTOM FINISHER: altered consciousness (unrelated to primary neuro pathology) Assessment/Plan - Problem List (1) Acute metabolic encephalopathy Impression: Patient's confusion could possibly be multifactorial as patient is on Zanaflex, Tegretol, baclofen and Zoloft which all could be confounders in the setting of likely recurrence of patient's acute on chronic UTI with likely source from suprapubic indwelling Thomas catheter which has been exchanged in the ED. Tegretol level is theraputic at 6.1. In addition will continue with medical management IV antibiotics and fluids and avoid sedate of agents. Lactic acid was unremarkable on admission. This morning he has improved but since I don't know him well, can't say if he's at baseline. I hope will come in to assess that. (2) UTI (lower urinary tract infection) Conclusion/Plan: Present on admission from chronic indwelling suprapubic catheter. Acute on chronic UTI (POA) with associated encephalopathy as patient has a nidus of infection from suprapubic indwelling Thomas catheter which was exchanged in the ED. Was on initial empiric coverage with IV Rocephin as prior urine culture growing Serratia marcescens sensitivities to cephalosporins. Urine culture to be sent out on this admission. Since Serratia species are commonly found in the environment, the clinical presentation should always be taken into account when evaluating recovery of these organisms from clinical specimens in order to distinguish infection from contamination or colonization. May need to consider also the possibility of a AmpC-producing S. marcescens organism, which may not be evident during initial susceptibility testing. Exposure to certain beta- lactams can induce expression of AmpC beta-lactamase to higher levels. Would consider switching over to a Zosyn, aztreonam or a carbapenem. Patient likely will benefit from urine acidification or prophylactic treatment with Hiprex (Methenamine hippurate) 1 g p.o. twice daily, Along with proper hygiene and care for chronic indwelling Thomas catheter. I would query that patient is chronically colonized with Serratia marcescens and the ongoing empiric treatment with IV antibiotics will likely make the species further multidrug resistance, which would be preferable to continue with UTI prophylaxis/suppression with Hiprex. After further review of treatment, he was changed to Meropenem. Since he is clearing his mentation and his UTI is reponding: no hypoxia, Tmax 38.3 last night/now 37, no hypotension right now, and WBC is now 8 from 12K, I will consider PICC line with return to home for daily abx. I have called his and asked for her input. Message left at [phone]. (3) Indwelling catheter present on admission Conclusion/Plan: Status post exchange in the ED on 09/05. Patient has a nidus of infection which likely is the result from the chronic indwelling SP-FC. Continue with current medical management. (4) Multiple sclerosis Conclusion/Plan: Would continue with current medications that patient is on such as baclofen and other antispasmodics. Would hold in the setting of metabolic encephalopathy and restart once patient's mental status has improved. (5) CKD (chronic kidney disease), stage III Conclusion/Plan: Patient receiving IV fluids, avoiding nephrotoxic agents, baseline creatinine usually remains between 1.2-2.0. On admit was 1.5, today 1.4. Patient was discontinued off Bactrim due to concern for possible interstitial nephritis. Patient received a cephalosporin which patient is not allergic to. Now on meropenem. (6) Diabetes mellitus, insulin dependent (IDDM), uncontrolled Conclusion/Plan: Patient on a correctional insulin sliding scale plus his usual Lantus for basal coverage. Carb controlled diet. Hemoglobin A1c 7.8%. Patient is allergic to metformin. Selected Entries 09/05/18 09/05/18 09/05/18 14:50 20:34 20:47 Result (mg/dL) 271 311 311 09/06/18 09/06/18 08:00 10:03 Result (mg/dL) 201 201 I will add fixed scheduled dose of novolog to each meal for 2 units plus his SSI. Qualifiers: Glycemic state: with hyperglycemia Qualified Code(s): E10.65 - Type 1 diabetes mellitus with hyperglycemia (7) Functional quadriplegia secondary to multiple sclerosis Conclusion/Plan: Due to spasticity and hemiplegia of multiple sclerosis will need likely ongoing physical therapy to improve range of motion and functional capacity. (8) Hypertension Conclusion/Plan: We will continue BP meds with parameters due to patient's labile blood pressure medications however blood pressure readings. Qualifiers: Hypertension type: essential hypertension Qualified Code(s): I10 - Essential (primary) hypertension (9) Advanced care planning/counseling discussion Conclusion/Plan: Patient is a full code and medical conditions along with symptom and supportive care provided with trajectory of illness explained in detail to patient. Would consider palliative care services.
[2018-09-06] MEDS ORDERED: LISINOPRIL 5 MG TABLET PO SCH (11:00)
[2018-09-06] MEDS ORDERED: LISINOPRIL 20 MG TABLET PO SCH (11:00)
[2018-09-06 11:25] VITALS: BP 124/58
[2018-09-06] MEDS: GLATIRAMER ACETATE 40 MG SUBQ SCH ×2 (11:35→11:45)
--- NOTE | 2018-09-06 14:42 | Discharge Plan ---
Discharge Plan Disposition: Home, Self Care Condition: Good Prescriptions: Ertapenem [INVanz] 1 gm IV Q24H #5 vial Diet: Regular Activity Restrictions: Activity as Tolerated Shower Restrictions: No Driving Restrictions: Yes (no driving as usual) Assistance Devices: Wheelchair (at home) Additional Instructions or Follow Up instructions: You were admitted to the hospital because of a momentary episode of confusion. Confusion, unfortunately, for you is usually associated with infection. Since you have a indwelling suprapubic catheter the infection is usually urinary as a source. We are treating you for Serratia marcescens urinary tract infection. While you can go home for that treatment, we were not able to send you home because you are allergic to the pills that can treat you. We had to give you IV antibiotics to treat that. You now have a new central venous IV line. You can now get the antibiotic once a day to treat your urinary tract infection. Other than the treatment for the urinary tract infection, there were no new problems identified. Your primary care provider is Denis Mccall. Please see him in follow-up in the next 1 to 2 weeks. Depending on how you do with therapy and how you respond, you may be able to stop the PICC line in the next 2 weeks. Or you may opt to keep it for a little while longer in case you become ill again. No Smoking: If you smoke, Please STOP! Call for help. Follow-up with: Denis Mccall MD [Provider Admit Priv/Credential] -
[2018-09-06] MEDS ORDERED: SODIUM CHLORIDE 0.9% IV ONE (15:00)
[2018-09-06] MEDS ORDERED: ERTAPENEM IV ONE (15:00)
--- NOTE | 2018-09-06 15:48 | XRAY Report ---
Reason: new PICC@R Basillic Procedure Date: 09/06/2018 Accession Number: [id number] / [id number] Procedure: XR - Chest for Line Placement CPT Code: FULL RESULT: EXAM: CHEST RADIOGRAPHY EXAM DATE: 09/06/2018 03:21 PM. CLINICAL HISTORY: New right-sided PICC line. COMPARISON: CHEST 1 VIEW 03/04/2016 1:10 PM. TECHNIQUE: 1 view. FINDINGS: Lungs/Pleura: No focal opacities evident. No pleural effusion. No pneumothorax. Mediastinum: Within exam limitations, the cardiomediastinal contour is normal. Other: Right-sided PICC line tip distal third SVC just above the SVC right atrial junction. IMPRESSION: Normal single view chest. New right PICC line tip in satisfactory position. RADIA
[2018-09-06] MEDS ORDERED: METHENAMINE HIPPURATE 1 GM PO SCH (21:00)
--- NOTE | 2018-09-08 05:29 | DISCHARGE SUMMARY ---
Physician: Daniella Pierson MD DATE OF ADMISSION: 09/05/2018 DATE OF DISCHARGE: 09/06/2018 DISCHARGE DIAGNOSES 1. Acute metabolic encephalopathy secondary to infection. 2. Urinary tract infection with Serratia marcescens, present on admission. 3. Indwelling catheter, present on admission. 4. Multiple sclerosis. 5. Chronic kidney disease stage 3. 6. Type 2 diabetes mellitus, uncontrolled, with complications, with long-term use of insulin. 7. Functional quadriplegia, secondary to multiple sclerosis. 8. Hypertension. DISCHARGE MEDICATIONS 1. Aspirin 81 mg a day. 2. Baclofen 20 mg twice a day. 3. Tegretol extended release 200 mg twice a day. 4. Vitamin D 1000 units daily. 5. Lasix 40 mg daily. 6. Gabapentin 300 mg capsule at 0800, 1700, and 2100; 600 mg capsule at 1200 and 1400. 7. Glatopa 40 mg subcutaneously Sunday, Sunday, Sunday. 8. NovoLog FlexPen sliding scale insulin before meals. 9. Lantus 40 units subcutaneous b.i.d. 10. Lisinopril 45 mg daily. 11. Metoprolol succinate 50 mg in the evening. 12. Zoloft 25 mg daily. 13. Simvastatin 40 mg daily. 14. Tizanidine 8 mg q.p.m. 15. Ertapenem 1 gram daily for 5 more days. PRINCIPAL PROCEDURES 1. Chest x-ray with normal single-view chest. He has a new right PICC line in a satisfactory position. 2. EKG with sinus rhythm, left atrial enlargement, RSR prime in V1 or V2. 3. Urine culture with Serratia marcescens. HOSPITAL COURSE: This gentleman is a 68-year-old, moderately overweight, white male who has multiple sclerosis. He is a functional paraplegic and is confined to a wheelchair. Dependent on and care providers for complete care. He has an indwelling Thomas catheter that is suprapubic. In addition, he has spastic hemiplegia, insulin-dependent diabetes mellitus, chronic kidney disease, esophageal varices, psoriasis, asthma, angina, hypertension. When he becomes ill, he will become acutely confused and encephalopathic. He presents with "my mind has not been working straight." food photographer noticed that he was having increasing confusion today. He is usually a quite lucid, alert, and blunt gentleman with regard to his communication style. He was brought to the emergency room. A review of his medical records showed him to have a presentation 2 weeks ago with the same complaints, where he was diagnosed with a UTI and treated with IV ceftriaxone, and outpatient Bactrim. The Bactrim was discontinued by his PCP due to possible acute interstitial nephritis, and he completed treatment with daily ceftriaxone injections in the [facility]. With this current presentation, he was afebrile, had a labile blood pressure of 105/62, all the way up to 155/82. He was not hypoxic, not tachycardic, white cell count was 12, hemoglobin was 10. Lactic acid was 1.3. Random glucose 292. He had normal electrolytes with a slightly raised creatinine of 1.5. His baseline is 1.2 to 2.0. His LFTs and lipase were normal. EKG was unchanged. Urinalysis had mild pyuria, 6-10 white cells, positive nitrites, small leukocyte esterase, and all of his urine cultures in the past have grown Serratia marcescens that are multidrug resistant to cephalosporins. While the emergency room doctor felt that the patient did not need treatment, he could probably go home on oral antibiotics. Unfortunately, his previous Serratia culture showed him to be multidrug resistant, and none of the medications could be given orally. All were IV. As such, the patient was placed in observation to treat the UTI with IV antibiotics. He did spike a temperature to 38.1 on the night of admission and was afebrile for the rest of his stay. Blood pressure also came down and was 124/58 on the day of discharge. Urine culture eventually grew out Serratia marcescens. It is difficult to assess whether this patient has a UTI or not, and the only you could go by was his altered mental status. After an overnight stay, his baseline mental status returned. We opted to place a PICC line, and sent him home with IV antibiotics of ertapenem because of the Serratia multidrug resistance. He will be on antibiotics for a total of 7 days. Essentially, he will stop the ertapenem on Sunday, September 04. He will go home and be brought back to the [facility] on a daily basis for his infusion. He is a service connected ; however, the [place] takes a minimum of 3 days to make arrangements and, as such, he will be brought to the [facility]. His multiple sclerosis remained stable during his stay. There was no worsening or destabilization. His chronic kidney disease remained stable, and blood pressure was controlled. He is discharged in stable condition with a temperature of 37.5, pulse 91, blood pressure 124/58, respirations 18, 94% on room air. PHYSICAL EXAMINATION GENERAL: He is an alert, oriented, 6-foot 3-inch male, at 114 kg. He was lethargic on admission and confused, but at discharge he was alert; oriented to person, place, and time, and very much able to express his wishes and desires. LUNGS: Clear. No respiratory distress. No crackles, rhonchi, or wheezing. He had a regular rate and rhythm without a murmur. ABDOMEN: No organomegaly. Normal bowel sounds. No distention. Suprapubic catheter was in place. EXTREMITIES: He had some mild bilateral pitting edema noted. NEUROLOGIC: He was disoriented to time on admission but completely oriented at discharge. He appeared to express a depressed mood and affect on admission that was gone by the time of discharge. He has functional quadriplegia, is weak, and dependent on nursing and care providers to roll him, transfer him. PLAN: He is encouraged to follow up with his primary care provider in the next 1-2 weeks. PICC line can be removed at that time. Depending on how often he comes in with infection, a PICC line may be kept in place if it is kept sterile. TD: 09/07/2018 17:15 KELSEY
== END 2018-09-06 15:48 | disposition home or self-care (01) ==
LOC: EDUNIT# → ED 14:35 → MS2 18:49
PROVIDERS: ADMIT Family Medicine; ATTEND Specialist
PROC: 02HV33Z Insertion of Infusion Device into Superior Vena Cava, Percutaneous Approach (ICD-10-PCS; principal; 2018-09-06)
DX: T83.511A Infection and inflammatory reaction due to indwelling urethral catheter, initial encounter (principal); G93.41 Metabolic encephalopathy; N39.0 Urinary tract infection, site not specified; Y84.6 Urinary catheterization as the cause of abnormal reaction of the patient, or of later complication, without mention of misadventure at the time of the procedure; Y92.009 Unspecified place in unspecified non-institutional (private) residence as the place of occurrence of the external cause; B96.89 Other specified bacterial agents as the cause of diseases classified elsewhere; G35 Multiple sclerosis; R53.2 Functional quadriplegia; E11.22 Type 2 diabetes mellitus with diabetic chronic kidney disease; I13.10 Hypertensive heart and chronic kidney disease without heart failure, with stage 1 through stage 4 chronic kidney disease, or unspecified chronic kidney disease; N18.3 Chronic kidney disease, stage 3 (moderate); E11.65 Type 2 diabetes mellitus with hyperglycemia; E66.3 Overweight; I20.9 Angina pectoris, unspecified; F32.9 Major depressive disorder, single episode, unspecified; Z79.4 Long term (current) use of insulin; Z79.82 Long term (current) use of aspirin; Z79.899 Other long term (current) drug therapy; Z90.49 Acquired absence of other specified parts of digestive tract; Z68.31 Body mass index [BMI] 31.0-31.9, adult; Z99.3 Dependence on wheelchair; Z16.19 Resistance to other specified beta lactam antibiotics; Z88.1 Allergy status to other antibiotic agents; Z88.8 Allergy status to other drugs, medicaments and biological substances
CPT/HCPCS: 36415; 36569; 51705; 80048; 80053; 80156; 81001; 83036; 83605; 83690; 84484; 85025; 87077; 87086; 87181; 93005; 96361; 96365; 96366; 96367; 96372; 96375; 96376; 99284; A9270; C1751; G0378; J1335; J1815; J2185; 51702; 71045; 81003

== ENCOUNTER 2018-10-19 19:30 | Outpatient (CLI) | payer MEDICARE, OTHER | END 2018-10-19 19:31 | disposition critical access hospital (66) | LOC: EMS 19:30 | PROVIDERS: ATTEND Surgery | DX: R53.1 Weakness (principal) | CPT/HCPCS: A0425; A0429 ==

== ENCOUNTER 2018-10-19 20:23 | Emergency (ER) | payer MEDICARE, OTHER ==
--- NOTE | 2018-10-19 20:32 | ED Physician Documentation ---
PD HPI ALTERED MENTAL STATUS - Stated complaint Stated Complaint: WEAKNESS - Chief complaint Chief Complaint: Neuro - History obtained from History obtained from: Patient - History of Present Illness Timing - onset: How many days ago (2-3) Timing - duration: Days (2-3) Timing - details: Gradual onset Quality / character: Other (generally feeling weaker.) Associated symptoms: General weakness. No: Fever, Headache, Dyspnea, NVD, Focal weakness Contributing factors: No: Anticoagulated, Diabetic Basline status: Alert and oriented X 3, Wheelchair, Bedbound (due to MS), Home Similar symptoms before: Diagnosis (often feels this way with UTIs, or pneumonia or other illness, that will worsen his MS symptoms.) Review of Systems Constitutional: reports: Fatigue. denies: Fever, Chills, Myalgias Nose: denies: Rhinorrhea / runny nose, Congestion Throat: denies: Sore throat Cardiac: denies: Chest pain / pressure Respiratory: denies: Dyspnea, Cough GI: denies: Abdominal Pain, Nausea, Vomiting, Diarrhea : denies: Hematuria, Marion Problem (has flow from marion, and says it has looked some cloudy/sediment increased.) Skin: denies: Rash, Lesions (denies pressure sores or pain areas.) Musculoskeletal: denies: Neck pain, Back pain Neurologic: reports: Generalized weakness (worse than baseline.). denies: Confused, Headache PD PAST MEDICAL HISTORY - Past Medical History Cardiovascular: Angina Respiratory: Asthma Neuro: Multiple sclerosis Endocrine/Autoimmune: Type 2 diabetes GI: Esophageal varices : Renal insuffiency Psych: Depression Musculoskeletal: Hemiplegia Derm: Psoriasis - Past Surgical History Past Surgical History: Yes General: Cholecystectomy - Present Medications Home Medications: Ambulatory Orders Medication Instructions Recorded Confirmed RX: Sertraline HCl [Zoloft] 25 mg PO DAILY 09/02/12 09/12/18 RX: Tizanidine HCl 8 mg PO QPM 09/02/12 09/12/18 RX: Insulin Aspart [Novolog 0 - 10 units SUBQ TIDWM 10/20/14 09/12/18 Flexpen] RX: Insulin Glargine [Lantus 40 units SUBQ 0800,2100 10/20/14 09/12/18 Solostar] RX: Baclofen 20 mg PO 0900,1700 03/01/16 09/12/18 RX: Gabapentin 300 mg PO 0800,1700,2100 03/01/16 09/12/18 RX: Metoprolol Succinate [Toprol 50 mg PO QPM 03/01/16 09/12/18 Xl] RX: Lisinopril 45 mg PO DAILY 06/05/16 09/12/18 RX: Simvastatin 40 mg PO QPM 06/05/16 09/12/18 RX: Aspirin 81 mg PO DAILY 07/26/18 09/12/18 RX: Cholecalciferol (Vitamin D3) 1,000 unit PO DAILY 07/26/18 09/12/18 [Vitamin D3] RX: Furosemide 40 mg PO DAILY 07/26/18 09/12/18 RX: Glatiramer Acetate [Glatopa] 40 mg SQ MOWEFR 07/26/18 09/12/18 RX: Sulfamethoxazole/Trimethoprim 1 each PO BID #14 tablet 08/21/18 09/12/18 [Sulfamethoxazole-Tmp Ds Tablet] RX: Ertapenem [INVanz] 1 gm IV Q24H #5 vial 09/06/18 09/12/18 RX: Gabapentin [Neurontin] 600 mg PO 1200,1400 09/06/18 09/12/18 RX: carBAMazepine ER [TEGretol XR] 200 mg PO BID 09/06/18 09/12/18 RX: ceFIXime [Cefixime] 400 mg PO BID #20 capsule 10/19/18 - Allergies Allergies/Adverse Reactions: Allergies Allergy/AdvReac Type Severity Reaction Status Date / Time metformin HCl * Allergy Unknown Rash Verified 09/05/18 14:43 [From Glucophage] tamsulosin HCl * Allergy Unknown Rash Verified 09/05/18 14:43 [From Flomax] sulfamethoxazole AdvReac Hallucinati Verified 09/05/18 14:43 [From Bactrim] ons trimethoprim [From Bactrim] AdvReac Hallucinati Verified 09/05/18 14:43 ons - Social History Does the pt smoke?: No Smoking Status: Former smoker Does the pt drink ETOH?: No Does the pt have substance abuse?: No - Immunizations Immunizations are current?: No Immunizations: TDAP >10years/unknown - POLST Patient has POLST: Yes PD ED PE NORMAL - Vitals Vital signs reviewed: Yes - General General: Alert and oriented X 3, No acute distress, Well developed/nourished - HEENT HEENT: Pharynx benign - Neck Neck: Supple, no meningeal sign, No adenopathy - Cardiac Cardiac: RRR, No murmur - Respiratory Respiratory: Clear bilaterally - Abdomen Abdomen: Soft, Non tender - Male Male : Other (marion draining. No rash nor sores on meatus. ) - Back Back: No CVA TTP - Derm Derm: Normal color, Warm and dry - Extremities Extremities: No tenderness to palpate, Normal ROM s pain, No calf tenderness / cord, Other (mild edema both lower legs and ankles; no tenderness. No tenderness on heels, gluteals (skin not visualized per se).) Results - Vitals Vitals: Vital Signs - 24 hr 10/19/18 10/19/18 10/19/18 20:31 21:12 23:03 Heart Rate 77 74 75 Respiratory 16 16 16 Rate Blood Pressure 135/110 H 138/59 H 109/70 O2 Saturation 96 98 96 10/20/18 00:03 Heart Rate 76 Respiratory 16 Rate Blood Pressure 146/67 H O2 Saturation 97 Oxygen O2 Source Room air - Labs Labs: Laboratory Tests 10/19/18 10/19/18 10/19/18 20:53 20:53 20:53 WBC 7.2 RBC 3.55 L Hgb 10.2 L Hct 31.8 L MCV 89.6 MCH 28.7 MCHC 32.1 RDW 13.7 Plt Count 267 MPV 9.6 Neut # (Auto) 4.6 Lymph # (Auto) 1.8 Smyth # (Auto) 0.5 Eos # (Auto) 0.3 Baso # (Auto) 0.0 Absolute Nucleated RBC 0.00 Nucleated RBC % 0.0 Sodium 138 Potassium 5.3 H Chloride 102 Carbon Dioxide 25 Anion Gap 11.0 BUN 48 H Creatinine 1.5 H Estimated GFR (MDRD) 46 L Glucose 199 H Lactic Acid Calcium 9.0 Magnesium 2.2 Total Bilirubin 0.5 AST 14 ALT 20 Alkaline Phosphatase 123 H Troponin I < 0.04 B-Natriuretic Peptide Total Protein 7.6 Albumin 3.8 Globulin 3.8 Albumin/Globulin Ratio 1.0 Lipase 76 H Urine Color Urine Clarity Urine pH Ur Specific [place] Urine Protein Urine Glucose (UA) Urine Ketones Urine Occult Blood Urine Nitrite Urine Bilirubin Urine Urobilinogen Ur Leukocyte Esterase Urine RBC Urine WBC Urine WBC Clumps Ur Squamous Epith Cells Urine Bacteria Ur Microscopic Review Urine Culture Comments 10/19/18 10/19/18 10/19/18 20:53 21:10 21:34 WBC RBC Hgb Hct MCV MCH MCHC RDW Plt Count MPV Neut # (Auto) Lymph # (Auto) Smyth # (Auto) Eos # (Auto) Baso # (Auto) Absolute Nucleated RBC Nucleated RBC % Sodium Potassium Chloride Carbon Dioxide Anion Gap BUN Creatinine Estimated GFR (MDRD) Glucose Lactic Acid 2.3 H Calcium Magnesium Total Bilirubin AST ALT Alkaline Phosphatase Troponin I B-Natriuretic Peptide 19 Total Protein Albumin Globulin Albumin/Globulin Ratio Lipase Urine Color YELLOW Urine Clarity HAZY Urine pH 5.5 Ur Specific [place] 1.015 Urine Protein NEGATIVE Urine Glucose (UA) NEGATIVE Urine Ketones NEGATIVE Urine Occult Blood TRACE-LYSE Urine Nitrite POSITIVE H Urine Bilirubin NEGATIVE Urine Urobilinogen 0.2 (NORMAL) Ur Leukocyte Esterase MODERATE H Urine RBC 11-25 H Urine WBC >25 H Urine WBC Clumps PRESENT Ur Squamous Epith Cells RARE Squamous Urine Bacteria Many H Ur Microscopic Review INDICATED Urine Culture Comments INDICATED - Rads (name of study) chest xray Radiology: Prelim report reviewed, EMP read contemporaneously (no infiltrates.), See rad report PD MEDICAL DECISION MAKING - ED course Complexity details: reviewed results (does have apparent UTI. Not appearing septic (Lactate 2.3, normal up to 2.2).), considered differential, d/w patient Departure - Departure Disposition: 01 Home, Self Care Clinical Impression: UTI (lower urinary tract infection), Generalized weakness, Multiple sclerosis Condition: Stable Record reviewed to determine appropriate education?: Yes Health Concerns: weakness and flare MS. Plan of Treatment: antibiotics for UTI Care Goals: return to baseline strength. Assessment: UTI without sepsis and is stable for discharge. Instructions: ED UTI Cystitis Male Follow-Up: Denis Mccall MD [Primary Care Provider] - Prescriptions: RX: ceFIXime [Cefixime] 400 mg PO BID #20 capsule Comments: You do have signs of an infection in the urine. No signs of sepsis or systemic infection per se. Your chest x-ray is clear. Your lab tests show a slightly elevated potassium. Be sure to stay well-hydrated. We will start antibiotic cefixime twice daily for 10 days based off the prior culture results you have had on more recent urinary tract infections. Recheck if not improved well over the next few days. We will get the culture results back in 2 to 3 days to see if the antibiotics need changing. Discharge Date/Time: 10/20/18 00:04
[2018-10-19] MEDS ORDERED: SODIUM CHLORIDE 0.9% 1,000 ML IV ONE (20:50)
[2018-10-19 21:05] LABS: BASOPHILS % (AUTO) 0.4 %; EOSINOPHILS # (AUTO) 0.3 10^3/uL (0.0-0.7); EOSINOPHILS % (AUTO) 3.6 %; HGB - HEMOGLOBIN 10.2 g/dL (14.0-18.0); LYMPHOCYTES # (AUTO) 1.8 10^3/uL (1.5-3.5); LYMPHOCYTES % (AUTO) 24.6 %; MEAN CORPUSCULAR HEMOGLOBIN 28.7 pg (27.0-31.0); MEAN CORPUSCULAR HGB CONC 32.1 g/dL (32.0-36.0); MEAN CORPUSCULAR VOLUME 89.6 fL (80.0-94.0); MEAN PLATELET VOLUME 9.6 fL (7.4-11.4); MONOCYTES # (AUTO) 0.5 10^3/uL (0.0-1.0); MONOCYTES % (AUTO) 7.2 %; NEUTROPHILS # (AUTO) 4.6 10^3/uL (1.5-6.6); NEUTROPHILS % (AUTO) 63.8 %; PLT - PLATELET COUNT 267 10^3/uL (130-450); RED BLOOD COUNT 3.55 10^6/uL (4.70-6.10); RED CELL DISTRIBUTION WIDTH 13.7 % (12.0-15.0); WHITE BLOOD COUNT 7.2 x10^3/uL (4.8-10.8)
[2018-10-19 21:16] LABS: ALBUMIN 3.8 g/dL (3.2-5.5); BILIRUBIN,TOTAL 0.5 mg/dL (0.2-1.0); CREATININE 1.5 mg/dL (0.6-1.2); MAGNESIUM 2.2 mg/dL (1.7-2.8); TOTAL PROTEIN 7.6 g/dL (6.7-8.2)
--- NOTE | 2018-10-19 21:41 | XRAY Report ---
Reason: weakness Procedure Date: 10/19/2018 Accession Number: [id number] / [id number] Procedure: XR - Chest 1 View X-Ray CPT Code: 65949 FULL RESULT: EXAM: CHEST RADIOGRAPHY EXAM DATE: 10/19/2018 09:08 PM. CLINICAL HISTORY: Weakness. COMPARISON: CHEST FOR LINE PLACEMENT 09/06/2018 3:06 PM. TECHNIQUE: 1 view. FINDINGS: Lungs/Pleura: No focal opacities evident. No pleural effusion. No pneumothorax. Mediastinum: Within exam limitations, the cardiomediastinal contour is normal. Other: None. IMPRESSION: Normal single view chest. RADIA
[2018-10-19 21:46] LABS: BILIRUBIN,URINE NEGATIVE (NEGATIVE); GLUCOSE, URINE (UA) NEGATIVE (NEGATIVE); KETONES,URINE (UA) NEGATIVE (NEGATIVE); LEUKOCYTE ESTERASE, URINE MODERATE (NEGATIVE); NITRITE,URINE POSITIVE (NEGATIVE); OCCULT BLOOD,URINE TRACE-LYSE (NEGATIVE); PH,URINE 5.5 PH (5.0-7.5); PROTEIN,URINE NEGATIVE (NEGATIVE); UROBILINOGEN,URINE 0.2 (NORMAL) E.U./dL (NORMAL)
[2018-10-19 21:53] LABS: BACTERIA,URINE Many /HPF (None Seen); CLARITY,URINE HAZY (CLEAR); SQUAMOUS EPITHELIAL CELL,UR RARE Squamous (<= Few); WBC CLUMPS,URINE PRESENT
[2018-10-19] MEDS ORDERED: cefTRIAXone 1 GM VIAL IVP STA (22:15)
[2018-10-19] MEDS ORDERED: DEXAMETHASONE 10 MG/ML VIAL IVP STA (22:15)
[2018-10-20 00:04] VITALS: BP 146/67
== END 2018-10-20 00:04 | disposition home or self-care (01) ==
LOC: ED 20:23
DX: N39.0 Urinary tract infection, site not specified (principal); R53.1 Weakness; G35 Multiple sclerosis; E11.9 Type 2 diabetes mellitus without complications; Z79.4 Long term (current) use of insulin; Z87.891 Personal history of nicotine dependence
CPT/HCPCS: 36415; 71045; 80053; 81001; 81003; 83605; 83690; 83735; 83880; 84484; 85025; 87086; 93005; 96361; 96374; 99283; 99284

== ENCOUNTER 2018-10-20 11:26 | Emergency (ER) | payer MEDICARE, OTHER ==
[2018-10-20 11:31] VITALS: BP 106/81
--- NOTE | 2018-10-20 12:26 | ED Physician Documentation ---
PD HPI MALE - Stated complaint Stated Complaint: BLEEDING - Chief complaint Chief Complaint: UTI - History obtained from History obtained from: Patient - History of Present Illness Timing - onset: Today (68-year-old gentleman with chronic indwelling catheter d/t MS, recent diagnosis of UTI and culture is pending. He is on antibiotics. Today with a large clot in the catheter without symptoms of urinary retention or general illness such as aches, fevers.) Review of Systems Constitutional: denies: Fever, Chills Cardiac: reports: Reviewed and negative GI: denies: Abdominal Pain, Nausea, Vomiting PD PAST MEDICAL HISTORY - Past Medical History Past Medical History: Yes Cardiovascular: Angina Respiratory: Asthma Neuro: Multiple sclerosis Endocrine/Autoimmune: Type 2 diabetes GI: Esophageal varices : Renal insuffiency Psych: Depression Musculoskeletal: Hemiplegia Derm: Psoriasis - Past Surgical History Past Surgical History: Yes General: Cholecystectomy - Present Medications Home Medications: Ambulatory Orders Medication Instructions Recorded Confirmed Sertraline HCl [Zoloft] 25 mg PO DAILY 09/02/12 09/12/18 Tizanidine HCl 8 mg PO QPM 09/02/12 09/12/18 Insulin Aspart [Novolog Flexpen] 0 - 10 units SUBQ TIDWM 10/20/14 09/12/18 Insulin Glargine [Lantus Solostar] 40 units SUBQ 0800,2100 10/20/14 09/12/18 Baclofen 20 mg PO 0900,1700 03/01/16 09/12/18 Gabapentin 300 mg PO 0800,1700,2100 03/01/16 09/12/18 Metoprolol Succinate [Toprol Xl] 50 mg PO QPM 03/01/16 09/12/18 Lisinopril 45 mg PO DAILY 06/05/16 09/12/18 Simvastatin 40 mg PO QPM 06/05/16 09/12/18 Aspirin 81 mg PO DAILY 07/26/18 09/12/18 Cholecalciferol (Vitamin D3) 1,000 unit PO DAILY 07/26/18 09/12/18 [Vitamin D3] Furosemide 40 mg PO DAILY 07/26/18 09/12/18 Glatiramer Acetate [Glatopa] 40 mg SQ MOWEFR 07/26/18 09/12/18 Sulfamethoxazole/Trimethoprim 1 each PO BID #14 tablet 08/21/18 09/12/18 [Sulfamethoxazole-Tmp Ds Tablet] Ertapenem [INVanz] 1 gm IV Q24H #5 vial 09/06/18 09/12/18 Gabapentin [Neurontin] 600 mg PO 1200,1400 09/06/18 09/12/18 carBAMazepine ER [TEGretol XR] 200 mg PO BID 09/06/18 09/12/18 ceFIXime [Cefixime] 400 mg PO BID #20 capsule 10/19/18 - Allergies Allergies/Adverse Reactions: Allergies Allergy/AdvReac Type Severity Reaction Status Date / Time metformin HCl * Allergy Unknown Rash Verified 09/05/18 14:43 [From Glucophage] tamsulosin HCl * Allergy Unknown Rash Verified 09/05/18 14:43 [From Flomax] sulfamethoxazole AdvReac Hallucinati Verified 09/05/18 14:43 [From Bactrim] ons trimethoprim [From Bactrim] AdvReac Hallucinati Verified 09/05/18 14:43 ons - Social History Does the pt smoke?: No Smoking Status: Former smoker Does the pt drink ETOH?: No Does the pt have substance abuse?: No - Immunizations Immunizations are current?: No Immunizations: TDAP >10years/unknown - POLST Patient has POLST: Yes PD ED PE NORMAL - Vitals Vital signs reviewed: Yes - General General: Alert and oriented X 3, No acute distress - Abdomen Abdomen: Soft, Non tender - Male Male : Other (There is an indwelling suprapubic catheter in place with a large clot in it. During examination it was unhooked from the Marion bag at which point the clot made its way into the bag and then it was manually irrigated and the return was relatively clear.) - Psych Psych: Normal mood, Normal affect Results - Vitals Vitals: Vital Signs - 24 hr 10/20/18 11:28 Temperature 36.2 C L Heart Rate 74 Respiratory 18 Rate Blood Pressure 106/81 H O2 Saturation 98 Oxygen O2 Source Room air Departure - Departure Disposition: 01 Home, Self Care Clinical Impression: Hematuria Qualifiers: Hematuria type: gross Qualified Code(s): R31.0 - Gross hematuria Condition: Good Record reviewed to determine appropriate education?: Yes Health Concerns: blood in marion Plan of Treatment: irrigated, now urine clear Care Goals: no more blood Assessment: as above Instructions: ED Catheter Care William Comments: Call your doctor to arrange a follow-up appointment, make the next available appointment. In the interim, return anytime if worse or if new symptoms develop.
== END 2018-10-20 12:31 | disposition home or self-care (01) ==
LOC: ED 11:26
DX: N39.0 Urinary tract infection, site not specified (principal); R31.0 Gross hematuria; R53.1 Weakness; G35 Multiple sclerosis; E11.9 Type 2 diabetes mellitus without complications; Z79.4 Long term (current) use of insulin; Z87.891 Personal history of nicotine dependence; Z79.82 Long term (current) use of aspirin
CPT/HCPCS: 36415; 71045; 80053; 81001; 81003; 83605; 83690; 83735; 83880; 84484; 85025; 87086; 93005; 96361; 96374; 99282; 99283; 99284

== ENCOUNTER 2018-10-21 07:43 | Outpatient (CLI) | payer MEDICARE, OTHER | END 2018-10-21 07:44 | disposition EMS.NT | LOC: EMS 07:43 | PROVIDERS: ATTEND Surgery | DX: S01.01XA Laceration without foreign body of scalp, initial encounter (principal); W06.XXXA Fall from bed, initial encounter; Y92.003 Bedroom of unspecified non-institutional (private) residence as the place of occurrence of the external cause ==

== ENCOUNTER 2018-10-29 09:31 | Outpatient (CLI) | payer MEDICARE, OTHER | END 2018-10-29 09:32 | disposition critical access hospital (66) | LOC: EMS 09:31 | PROVIDERS: ATTEND Surgery | DX: R53.1 Weakness (principal); R41.0 Disorientation, unspecified | CPT/HCPCS: A0425; A0429 ==

== ENCOUNTER 2018-10-29 09:49 | Emergency (ER) | payer MEDICARE, OTHER ==
--- NOTE | 2018-10-29 10:03 | ED Physician Documentation ---
PD HPI ALTERED MENTAL STATUS - Stated complaint Stated Complaint: WEAKNESS - Chief complaint Chief Complaint: Neuro - History obtained from History obtained from: Patient, Family, EMS - History of Present Illness Timing - onset: Yesterday Timing - duration: Days (1-2) Timing - details: Abrupt onset, Waxing and waning Quality / character: Confused, Disoriented, Other (usually patient sings everyday but has been more quiet). No: Agitated, Combative, Hallucinating Associated symptoms: General weakness. No: Fever, Headache, Stiff neck, Dyspnea, Cough, NVD, Urinary sx, Focal weakness, Seizure activity, Syncope Contributing factors: Other (hx of dementia and MS). No: Anticoagulated Basline status: Alert and oriented X 3, Wheelchair, Home (lives home with family, takes care of him). No: Ambulatory Treatment CRM TECHNICAL LEAD: Other (none) Similar symptoms before: Diagnosis (prior hx of UTIs with hx of confusion) Recently seen: Emergency Dept (for a UTI and was treated with IV antibiotics) - Treatment prior to arrival Treatment prior to arrival: none Review of Systems Ten Systems: 10 systems reviewed and negative Constitutional: denies: Fever, Chills Eyes: reports: Reviewed and negative Cardiac: reports: Reviewed and negative Respiratory: reports: Reviewed and negative GI: reports: Reviewed and negative : reports: Reviewed and negative Skin: reports: Reviewed and negative Neurologic: reports: Generalized weakness, Confused, Altered mental status, Head injury. denies: Focal weakness, Numbness, Difficulty speaking, Seizure, Headache PD PAST MEDICAL HISTORY - Past Medical History Past Medical History: Yes Cardiovascular: Angina Respiratory: Asthma Neuro: Multiple sclerosis Endocrine/Autoimmune: Type 2 diabetes GI: Esophageal varices : Renal insuffiency Psych: Depression Musculoskeletal: Hemiplegia Derm: Psoriasis - Past Surgical History Past Surgical History: Yes General: Cholecystectomy - Present Medications Home Medications: Ambulatory Orders Medication Instructions Recorded Confirmed Sertraline HCl [Zoloft] 25 mg PO DAILY 09/02/12 09/12/18 Tizanidine HCl 8 mg PO QPM 09/02/12 09/12/18 Insulin Aspart [Novolog Flexpen] 0 - 10 units SUBQ TIDWM 10/20/14 09/12/18 Insulin Glargine [Lantus Solostar] 40 units SUBQ 0800,2100 10/20/14 09/12/18 Baclofen 20 mg PO 0900,1700 03/01/16 09/12/18 Gabapentin 300 mg PO 0800,1700,2100 03/01/16 09/12/18 Metoprolol Succinate [Toprol Xl] 50 mg PO QPM 03/01/16 09/12/18 Lisinopril 45 mg PO DAILY 06/05/16 09/12/18 Simvastatin 40 mg PO QPM 06/05/16 09/12/18 Aspirin 81 mg PO DAILY 07/26/18 09/12/18 Cholecalciferol (Vitamin D3) 1,000 unit PO DAILY 07/26/18 09/12/18 [Vitamin D3] Furosemide 40 mg PO DAILY 07/26/18 09/12/18 Glatiramer Acetate [Glatopa] 40 mg SQ MOWEFR 07/26/18 09/12/18 Sulfamethoxazole/Trimethoprim 1 each PO BID #14 tablet 08/21/18 09/12/18 [Sulfamethoxazole-Tmp Ds Tablet] Ertapenem [INVanz] 1 gm IV Q24H #5 vial 09/06/18 09/12/18 Gabapentin [Neurontin] 600 mg PO 1200,1400 09/06/18 09/12/18 carBAMazepine ER [TEGretol XR] 200 mg PO BID 09/06/18 09/12/18 ceFIXime [Cefixime] 400 mg PO BID #20 capsule 10/19/18 Fluconazole [Diflucan] 200 mg PO DAILY #14 tablet 10/29/18 - Allergies Allergies/Adverse Reactions: Allergies Allergy/AdvReac Type Severity Reaction Status Date / Time metformin HCl * Allergy Unknown Rash Verified 10/29/18 10:03 [From Glucophage] tamsulosin HCl * Allergy Unknown Rash Verified 10/29/18 10:03 [From Flomax] sulfamethoxazole AdvReac Hallucinati Verified 10/29/18 10:03 [From Bactrim] ons trimethoprim [From Bactrim] AdvReac Hallucinati Verified 10/29/18 10:03 ons - Social History Does the pt smoke?: No Smoking Status: Former smoker Does the pt drink ETOH?: No Does the pt have substance abuse?: No - Immunizations Immunizations are current?: No Immunizations: TDAP >10years/unknown - POLST Patient has POLST: Yes PD ED PE NORMAL - Vitals Vital signs reviewed: Yes - General General: Alert and oriented X 3, No acute distress, Well developed/nourished - HEENT HEENT: Atraumatic - Neck Neck: Supple, no meningeal sign, No JVD - Cardiac Cardiac: RRR, No murmur, No gallop, No rub - Respiratory Respiratory: No respiratory distress, Clear bilaterally - Abdomen Abdomen: Soft, Non tender, Non distended, Other (suprapubic marion catheter in place ) - Male Male : Deferred - Rectal Rectal: Deferred - Derm Derm: Normal color, Warm and dry, No rash - Extremities Extremities: No deformity, No tenderness to palpate, No edema - Neuro Neuro: Alert and oriented X 3, Other (pt has chronic LE paresis due to MS.) Eye Opening: Spontaneous Motor: Obeys Commands Verbal: Oriented GCS Score: 15 - Psych Psych: Normal mood, Normal affect Results - Vitals Vitals: Vital Signs - 24 hr 10/29/18 10/29/18 09:59 12:06 Temperature 36.7 C Heart Rate 71 71 Respiratory 14 11 L Rate Blood Pressure 118/64 121/57 L O2 Saturation 95 97 Oxygen O2 Source Room air - EKG (time done) 10:48 Rate: Rate (enter#) (69) Rhythm: NSR [place]: Normal Intervals: Normal [place], QRS normal QRS: Normal Ischemia: Normal ST segments Computer interpretation: Agree with computer - Labs Labs: Laboratory Tests 10/29/18 10/29/18 10/29/18 10:20 10:20 10:49 WBC 6.6 RBC 3.44 L Hgb 9.8 L Hct 30.4 L MCV 88.4 MCH 28.5 MCHC 32.2 RDW 13.7 Plt Count 217 MPV 9.5 Neut # (Auto) 4.6 Lymph # (Auto) 1.3 L [place] # (Auto) 0.4 Eos # (Auto) 0.2 Baso # (Auto) 0.0 Absolute Nucleated RBC 0.00 Nucleated RBC % 0.0 Sodium 134 L Potassium 4.4 Chloride 100 L Carbon Dioxide 24 Anion Gap 10.0 BUN 63 H Creatinine 1.6 H Estimated GFR (MDRD) 43 L Glucose 189 H Calcium 8.7 Urine Color YELLOW Urine Clarity CLEAR Urine pH 5.5 Ur Specific [place] <=1.005 Urine Protein NEGATIVE Urine Glucose (UA) NEGATIVE Urine Ketones NEGATIVE Urine Occult Blood TRACE-LYSE Urine Nitrite NEGATIVE Urine Bilirubin NEGATIVE Urine Urobilinogen 0.2 (NORMAL) Ur Leukocyte Esterase SMALL H Urine RBC 0-5 Urine WBC 6-10 H Ur Squamous Epith Cells NONE SEEN Urine Bacteria Few Urine Yeast PRESENT Ur Microscopic Review INDICATED Urine Culture Comments INDICATED UA shows improving UTI. Likely susceptible to current antibiotic regimen. Pt also has yeast positive thus will give dose of diflucan. Departure - Departure Disposition: 01 Home, Self Care Clinical Impression: Margaret cystitis Condition: Stable Record reviewed to determine appropriate education?: Yes Instructions: Microscopic Urinalysis Follow-Up: Denis Mccall MD [Primary Care Provider] - Within 1 week Prescriptions: Fluconazole [Diflucan] 200 mg PO DAILY #14 tablet Comments: Your lab test for your urine was suggestive of a yeast infection. Your bacterial infection appears to be improving on your current antibiotics. You should continue these until complete. You were given a single dose of diflucan orally in the ED today to treat the yeast infection. Take the diflucan 200mg orally once daily for 2 weeks. You were given today's dose in the Emergency Department. Call your doctor to recheck your carbamazepine levels as this can be affected by diflucan. Your electrolytes, kidney function, blood counts and CT scan of your head were all stable. Follow up with your doctor to recheck your symptoms.
[2018-10-29 10:23] LABS: BASOPHILS % (AUTO) 0.6 %; EOSINOPHILS # (AUTO) 0.2 10^3/uL (0.0-0.7); HGB - HEMOGLOBIN 9.8 g/dL (14.0-18.0); LYMPHOCYTES # (AUTO) 1.3 10^3/uL (1.5-3.5); LYMPHOCYTES % (AUTO) 19.4 %; MEAN CORPUSCULAR HEMOGLOBIN 28.5 pg (27.0-31.0); MEAN CORPUSCULAR HGB CONC 32.2 g/dL (32.0-36.0); MEAN CORPUSCULAR VOLUME 88.4 fL (80.0-94.0); MEAN PLATELET VOLUME 9.5 fL (7.4-11.4); MONOCYTES # (AUTO) 0.4 10^3/uL (0.0-1.0); MONOCYTES % (AUTO) 6.4 %; NEUTROPHILS # (AUTO) 4.6 10^3/uL (1.5-6.6); NEUTROPHILS % (AUTO) 70.1 %; PLT - PLATELET COUNT 217 10^3/uL (130-450); RED BLOOD COUNT 3.44 10^6/uL (4.70-6.10); RED CELL DISTRIBUTION WIDTH 13.7 % (12.0-15.0); WHITE BLOOD COUNT 6.6 x10^3/uL (4.8-10.8)
[2018-10-29 10:34] LABS: CALCIUM 8.7 mg/dL (8.5-10.3); CREATININE 1.6 mg/dL (0.6-1.2)
[2018-10-29] MEDS ORDERED: SODIUM CHLORIDE 0.9% 1,000 ML IV ONE (10:39)
[2018-10-29 10:58] LABS: BILIRUBIN,URINE NEGATIVE (NEGATIVE); GLUCOSE, URINE (UA) NEGATIVE (NEGATIVE); KETONES,URINE (UA) NEGATIVE (NEGATIVE); LEUKOCYTE ESTERASE, URINE SMALL (NEGATIVE); NITRITE,URINE NEGATIVE (NEGATIVE); OCCULT BLOOD,URINE TRACE-LYSE (NEGATIVE); PH,URINE 5.5 PH (5.0-7.5); PROTEIN,URINE NEGATIVE (NEGATIVE); UROBILINOGEN,URINE 0.2 (NORMAL) E.U./dL (NORMAL)
[2018-10-29 10:59] LABS: CLARITY,URINE CLEAR (CLEAR)
--- NOTE | 2018-10-29 11:01 | CT Report ---
Reason: fall, hit head, confusion increased Procedure Date: 10/29/2018 Accession Number: [id number] / [id number] Procedure: CT - HEAD WO CPT Code: FULL RESULT: EXAM: CT HEAD EXAM DATE: 10/29/2018 10:26 AM. CLINICAL HISTORY: Fall, hit head, confusion increased. COMPARISON: Noncontrast head CT from 08/24/2017. TECHNIQUE: Multiaxial CT images were obtained from the foramen magnum to the vertex. Reformats: Sagittal and coronal. IV contrast: None. In accordance with CT protocol optimization, one or more of the following dose reduction techniques were utilized for this exam: automated exposure control, adjustment of mA and/or KV based on patient size, or use of iterative reconstructive technique. FINDINGS: Parenchyma: There are patchy areas of hypoattenuation in the subcortical, periventricular, and deep white matter of bilateral cerebral hemispheres, compatible with sequela of moderate chronic microvascular disease. The overall pisano-white matter differentiation is preserved. No intracranial hemorrhage demonstrated. No evidence of mass or mass-effect. Extraaxial Spaces: There is mild diffuse prominence of the ventricles and extra-axial spaces, compatible with central volume loss. No subdural or epidural collections identified. Ventricles: Mild diffuse prominence, as described above. No midline shift. Basal cisterns are patent. Sinuses and Orbits: Complete opacification of the right frontal sinus with mild thickening of the sinus perez. This is similar to the prior examination and may indicate chronic sinusitis. There is also a small amount of debris in the right sphenoid sinus. The visualized portions of the remaining paranasal sinuses are clear. Mastoid air cells are also clear. Orbits are unremarkable. Bones: No evidence of fracture or calvarial defect. Other: None. IMPRESSION: 1. No acute intracranial abnormality. 2. Probable sequela of moderate chronic microvascular disease. RADIA
[2018-10-29 11:12] LABS: BACTERIA,URINE Few /HPF (None Seen); RBC,URINE 0-5 /HPF (0-5); SQUAMOUS EPITHELIAL CELL,UR NONE SEEN (<= Few); YEAST,URINE PRESENT
[2018-10-29] MEDS ORDERED: FLUCONAZOLE 100 MG TABLET PO STA ×2 (12:45→12:53)
[2018-10-29 12:46] VITALS: BP 121/57
== END 2018-10-29 14:51 | disposition home or self-care (01) ==
LOC: EDUNIT# → ED 09:49
DX: B37.41 Candidal cystitis and urethritis (principal); F03.90 Unspecified dementia, unspecified severity, without behavioral disturbance, psychotic disturbance, mood disturbance, and anxiety; G35 Multiple sclerosis; G81.94 Hemiplegia, unspecified affecting left nondominant side; E11.9 Type 2 diabetes mellitus without complications; Z79.4 Long term (current) use of insulin; Z87.891 Personal history of nicotine dependence; Z96.0 Presence of urogenital implants
CPT/HCPCS: 36415; 70450; 80048; 81001; 85025; 87086; 93005; 96360; 99284; A9270; 81003

== ENCOUNTER 2018-10-29 14:35 | Outpatient (CLI) | payer MEDICARE, OTHER | END 2018-10-29 14:36 | disposition home or self-care (01) | LOC: EMS 14:35 | PROVIDERS: ATTEND Surgery | DX: G35 Multiple sclerosis (principal); G82.20 Paraplegia, unspecified; F03.90 Unspecified dementia, unspecified severity, without behavioral disturbance, psychotic disturbance, mood disturbance, and anxiety | CPT/HCPCS: A0425; A0428 ==

== ENCOUNTER 2018-11-09 08:00 | Outpatient (CLI) | payer MEDICARE, OTHER | END 2018-11-09 23:59 | disposition home or self-care (01) | LOC: LAB.R 08:00 | PROVIDERS: ATTEND Family Medicine | DX: N39.0 Urinary tract infection, site not specified (principal) | CPT/HCPCS: 87077; 87086; 87181 ==

== ENCOUNTER 2018-11-12 12:27 | Outpatient (CLI) | payer MEDICARE, OTHER | END 2018-11-12 12:28 | disposition critical access hospital (66) | LOC: EMS 12:27 | PROVIDERS: ATTEND Surgery | DX: R40.20 Unspecified coma (principal) | CPT/HCPCS: A0425; A0427 ==

== ENCOUNTER 2018-11-12 12:42 | Observation (INO) | payer MEDICARE, OTHER ==
[2018-11-12] MEDS ORDERED: SODIUM CHLORIDE 0.9% 1,000 ML IV ONE ×3 (12:55→13:58)
[2018-11-12 13:21] LABS: BASOPHILS % (AUTO) 0.4 %; EOSINOPHILS # (AUTO) 0.2 10^3/uL (0.0-0.7); EOSINOPHILS % (AUTO) 2.4 %; HGB - HEMOGLOBIN 9.9 g/dL (14.0-18.0); LYMPHOCYTES # (AUTO) 1.8 10^3/uL (1.5-3.5); LYMPHOCYTES % (AUTO) 17.8 %; MEAN CORPUSCULAR HEMOGLOBIN 28.7 pg (27.0-31.0); MEAN CORPUSCULAR VOLUME 89.6 fL (80.0-94.0); MEAN PLATELET VOLUME 9.4 fL (7.4-11.4); MONOCYTES # (AUTO) 0.5 10^3/uL (0.0-1.0); MONOCYTES % (AUTO) 5.4 %; NEUTROPHILS # (AUTO) 7.2 10^3/uL (1.5-6.6); NEUTROPHILS % (AUTO) 73.5 %; PLT - PLATELET COUNT 281 10^3/uL (130-450); RED BLOOD COUNT 3.45 10^6/uL (4.70-6.10); RED CELL DISTRIBUTION WIDTH 14.2 % (12.0-15.0); WHITE BLOOD COUNT 9.8 x10^3/uL (4.8-10.8)
--- NOTE | 2018-11-12 13:32 | ED Physician Documentation ---
PD HPI ALTERED MENTAL STATUS - Stated complaint Stated Complaint: UNRESPENSIVE - Chief complaint Chief Complaint: Neuro - History obtained from History obtained from: EMS - History of Present Illness Timing - details: Gradual onset Contributing factors: Diabetic Basline status: Alert and oriented X 3 - Additional information Additional information: 68-year-old male with a history of multiple sclerosis, quadriplegic, has had his tizanidine increased from 8 mg once a day to 8 mg 3 times a day. Since that time has had increasing drowsiness. Today the staff was unable to wake him up. Review of Systems Unable to obtain: Unresponsive Constitutional: denies: Fever Respiratory: denies: Cough GI: denies: Vomiting PD PAST MEDICAL HISTORY - Past Medical History Cardiovascular: Angina Respiratory: Asthma Neuro: Multiple sclerosis Endocrine/Autoimmune: Type 2 diabetes GI: Esophageal varices : Renal insuffiency Psych: Depression Musculoskeletal: Hemiplegia Derm: Psoriasis - Past Surgical History Past Surgical History: Yes General: Cholecystectomy - Present Medications Home Medications: Ambulatory Orders Medication Instructions Recorded Confirmed Sertraline HCl [Zoloft] 25 mg PO DAILY 09/02/12 09/12/18 Tizanidine HCl 8 mg PO QPM 09/02/12 09/12/18 Insulin Aspart [Novolog Flexpen] 0 - 10 units SUBQ TIDWM 10/20/14 09/12/18 Insulin Glargine [Lantus Solostar] 40 units SUBQ 0800,2100 10/20/14 09/12/18 Baclofen 20 mg PO 0900,1700 03/01/16 09/12/18 Gabapentin 300 mg PO 0800,1700,2100 03/01/16 09/12/18 Metoprolol Succinate [Toprol Xl] 50 mg PO QPM 03/01/16 09/12/18 Lisinopril 45 mg PO DAILY 06/05/16 09/12/18 Simvastatin 40 mg PO QPM 06/05/16 09/12/18 Aspirin 81 mg PO DAILY 07/26/18 09/12/18 Cholecalciferol (Vitamin D3) 1,000 unit PO DAILY 07/26/18 09/12/18 [Vitamin D3] Furosemide 40 mg PO DAILY 07/26/18 09/12/18 Glatiramer Acetate [Glatopa] 40 mg SQ MOWEFR 07/26/18 09/12/18 Sulfamethoxazole/Trimethoprim 1 each PO BID #14 tablet 08/21/18 09/12/18 [Sulfamethoxazole-Tmp Ds Tablet] Ertapenem [INVanz] 1 gm IV Q24H #5 vial 09/06/18 09/12/18 Gabapentin [Neurontin] 600 mg PO 1200,1400 09/06/18 09/12/18 carBAMazepine ER [TEGretol XR] 200 mg PO BID 09/06/18 09/12/18 ceFIXime [Cefixime] 400 mg PO BID #20 capsule 10/19/18 Fluconazole [Diflucan] 200 mg PO DAILY #14 tablet 10/29/18 - Allergies Allergies/Adverse Reactions: Allergies Allergy/AdvReac Type Severity Reaction Status Date / Time metformin HCl * Allergy Unknown Rash Verified 11/12/18 12:50 [From Glucophage] tamsulosin HCl * Allergy Unknown Rash Verified 11/12/18 12:50 [From Flomax] sulfamethoxazole AdvReac Hallucinati Verified 11/12/18 12:50 [From Bactrim] ons trimethoprim [From Bactrim] AdvReac Hallucinati Verified 11/12/18 12:50 ons - Social History Does the pt smoke?: No Smoking Status: Never smoker Does the pt drink ETOH?: No Does the pt have substance abuse?: No - Immunizations Immunizations are current?: No Immunizations: TDAP >10years/unknown - POLST Patient has POLST: Yes PD ED PE NORMAL - Vitals Vital signs reviewed: Yes - General General: Other (sonorous, drowsy, but arousable) - HEENT HEENT: Moist mucous membranes - Neck Neck: Supple, no meningeal sign - Cardiac Cardiac: RRR - Respiratory Respiratory: No respiratory distress, Clear bilaterally - Abdomen Abdomen: Soft, Non distended - Derm Derm: Warm and dry - Extremities Extremities: No calf tenderness / cord - Neuro Neuro: Other (drowsy, but arousable) Results - Vitals Vitals: Vital Signs - 24 hr 11/12/18 11/12/18 11/12/18 12:45 12:55 13:20 Temperature 36.5 C Heart Rate 75 72 69 Respiratory 13 9 L 14 Rate Blood Pressure 114/58 L 130/62 119/63 O2 Saturation 97 98 92 11/12/18 11/12/18 11/12/18 13:30 14:00 14:30 Temperature Heart Rate 72 67 67 Respiratory 14 12 12 Rate Blood Pressure 120/62 99/61 98/52 L O2 Saturation 94 93 94 11/12/18 11/12/18 11/12/18 15:00 15:30 16:16 Temperature Heart Rate 72 68 66 Respiratory 12 12 8 L Rate Blood Pressure 125/65 125/65 130/59 L O2 Saturation 99 98 99 11/12/18 11/12/18 16:30 17:00 Temperature Heart Rate 66 66 Respiratory 12 12 Rate Blood Pressure 122/63 124/74 O2 Saturation 93 93 Oxygen O2 Source Room air - EKG (time done) 1247 Rate: Rate (enter#) (69) Rhythm: NSR [place]: Normal Intervals: Normal [place] QRS: Normal Ischemia: Normal ST segments - Labs Labs: Laboratory Tests 11/12/18 11/12/18 11/12/18 13:15 13:15 14:14 WBC 9.8 RBC 3.45 L Hgb 9.9 L Hct 30.9 L MCV 89.6 MCH 28.7 MCHC 32.0 RDW 14.2 Plt Count 281 MPV 9.4 Neut # (Auto) 7.2 H Lymph # (Auto) 1.8 [place] # (Auto) 0.5 Eos # (Auto) 0.2 Baso # (Auto) 0.0 Absolute Nucleated RBC 0.00 Nucleated RBC % 0.0 Sodium 136 Potassium 5.9 H Chloride 102 Carbon Dioxide 20 L Anion Gap 14.0 H BUN 78 H Creatinine 2.5 H Estimated GFR (MDRD) 26 L Glucose 114 H Calcium 8.6 Total Bilirubin 0.5 AST 15 ALT 18 Alkaline Phosphatase 114 Total Protein 7.3 Albumin 3.7 Globulin 3.6 Albumin/Globulin Ratio 1.0 Lipase 37 Urine Color YELLOW Urine Clarity SL. CLOUDY Urine pH 5.5 Ur Specific [place] 1.015 Urine Protein TRACE Urine Glucose (UA) NEGATIVE Urine Ketones NEGATIVE Urine Occult Blood LARGE H Urine Nitrite NEGATIVE Urine Bilirubin NEGATIVE Urine Urobilinogen 0.2 (NORMAL) Ur Leukocyte Esterase MODERATE H Urine RBC 11-25 H Urine WBC >25 H Urine WBC Clumps PRESENT Ur Squamous Epith Cells FEW Squamous Urine Bacteria Rare Urine Casts 11-25 Hyaline Casts Ur Microscopic Review INDICATED Urine Culture Comments INDICATED Salicylates < 4.0 Urine Opiates Screen NEGATIVE Ur Oxycodone Screen NEGATIVE Urine Methadone Screen NEGATIVE Ur Propoxyphene Screen NEGATIVE Acetaminophen < 10 L Ur Barbiturates Screen NEGATIVE Ur Tricyclics Screen NEGATIVE Ur Phencyclidine Scrn NEGATIVE Ur Amphetamine Screen NEGATIVE U Methamphetamines Scrn NEGATIVE U Benzodiazepines Scrn NEGATIVE Urine Cocaine Screen NEGATIVE U Cannabinoids Screen NEGATIVE Ethyl Alcohol < 5.0 - Rads (name of study) head CT Radiology: Prelim report reviewed, EMP read contemporaneously, See rad report (No acute intracranial abnormality) PD MEDICAL DECISION MAKING - ED course Complexity details: reviewed results, re-evaluated patient, considered differential, d/w patient ED course: 68-year-old male presents to the emergency room with altered mental status. Appears to be an accidental overdose of tizanidine. He went from 8 mg once a day to 8 mg 3 times a day and has been much more drowsy since starting this. He also has acute renal failure and hyperkalemia. Given IV fluids as well as insulin and glucose. Will place the patient in observation for further evaluation. No acute findings on head CT. Discussed the case with Dr. Pierson, hospitalist accepts This document was made in part using voice recognition software. While efforts are made to proofread this document, sound alike and grammatical errors may occur. Patient is arousable to noxious stimuli in the ED. He does speak when he wakes and speech is clear. Departure - Departure Disposition: ED Place in Observation Clinical Impression: Hyperkalemia, Dehydration, Somnolence Accidental overdose Qualifiers: Encounter type: initial encounter Qualified Code(s): T50.901A - Poisoning by unspecified drugs, medicaments and biological substances, accidental (unintentional), initial encounter Condition: Stable
[2018-11-12 13:53] LABS: BUN - BLOOD UREA NITROGEN 78 mg/dL (6-20); CALCIUM 8.6 mg/dL (8.5-10.3); CARBON DIOXIDE - CO2 20 mmol/L (21-32); CHLORIDE 102 mmol/L (101-111); CREATININE 2.5 mg/dL (0.6-1.2); GFR - MDRD 26 (>89); GLUCOSE 114 mg/dL (70-100); SODIUM 136 mmol/L (135-145)
[2018-11-12 13:54] LABS: ACETAMINOPHEN < 10 ug/mL (10-30); ALBUMIN 3.7 g/dL (3.2-5.5); ALKALINE PHOSPHATASE 114 IU/L (42-121); ALT ALANINE AMINOTRANSFERASE 18 IU/L (10-60); AST ASPARTATE AMINOTRANSFERASE 15 IU/L (10-42); BILIRUBIN,TOTAL 0.5 mg/dL (0.2-1.0); LIPASE 37 U/L (22-51); SALICYLATE < 4.0 mg/dL; TOTAL PROTEIN 7.3 g/dL (6.7-8.2)
[2018-11-12 14:26] LABS: MUDS CUTOFF CONCENTRATIONS CUTOFF CONC BELOW:
[2018-11-12 14:33] LABS: BILIRUBIN,URINE NEGATIVE (NEGATIVE); GLUCOSE, URINE (UA) NEGATIVE (NEGATIVE); KETONES,URINE (UA) NEGATIVE (NEGATIVE); LEUKOCYTE ESTERASE, URINE MODERATE (NEGATIVE); NITRITE,URINE NEGATIVE (NEGATIVE); OCCULT BLOOD,URINE LARGE (NEGATIVE); PH,URINE 5.5 PH (5.0-7.5); PROTEIN,URINE TRACE mg/dL (NEGATIVE); UROBILINOGEN,URINE 0.2 (NORMAL) E.U./dL (NORMAL)
[2018-11-12 14:36] LABS: CLARITY,URINE SL. CLOUDY (CLEAR)
[2018-11-12 14:40] LABS: AMPHETAMINE SCREEN,URINE NEGATIVE (NEGATIVE); BENZODIAZEPINES SCREEN, URINE NEGATIVE (NEGATIVE); COCAINE SCREEN URINE NEGATIVE (NEGATIVE); METHADONE SCREEN, URINE NEGATIVE (NEGATIVE); METHAMPHETAMINES SCREEN, URINE NEGATIVE (NEGATIVE); OPIATE SCREEN, URINE NEGATIVE (NEGATIVE); OXYCODONE SCREEN, URINE NEGATIVE (NEGATIVE); PROPOXYPHENE SCREEN, URINE NEGATIVE (NEGATIVE); TRICYCLIC ANTIDEPRESSANT,URINE NEGATIVE (NEGATIVE)
[2018-11-12 14:43] LABS: BACTERIA,URINE Rare /HPF (None Seen); CASTS, URINE 11-25 Hyaline Casts /LPF; SQUAMOUS EPITHELIAL CELL,UR FEW Squamous (<= Few); WBC CLUMPS,URINE PRESENT
--- NOTE | 2018-11-12 16:23 | CT Report ---
Reason: ALOC Procedure Date: 11/12/2018 Accession Number: [id number] / [id number] Procedure: CT - HEAD WO CPT Code: FULL RESULT: EXAM: CT HEAD WITHOUT CONTRAST. EXAM DATE: 11/12/2018 04:05 PM. CLINICAL HISTORY: Altered level of consciousness. COMPARISON: HEAD W/O 10/29/2018 10:25 AM. TECHNIQUE: Multiaxial CT images were obtained from the foramen magnum to the vertex. Reformats: Sagittal and coronal. IV contrast: None. In accordance with CT protocol optimization, one or more of the following dose reduction techniques were utilized for this exam: automated exposure control, adjustment of mA and/or KV based on patient size, or use of iterative reconstructive technique. FINDINGS: Parenchyma: No intraparenchymal hemorrhage. No evidence of mass, midline shift. Pavon-white differentiation is distinct. Extraaxial Spaces: Basal cisterns are patent. No subdural or epidural collections identified. Ventricles: Normal in size and position. Sinuses and Orbits: Imaged paranasal sinuses, orbits, and mastoids show no significant abnormality. Bones: No evidence of fracture or calvarial defect. Other: None. IMPRESSION: No acute intracranial abnormality. RADIA
[2018-11-12] MEDS ORDERED: INSULIN REGULAR HUMAN 100 UNIT/1 ML 10 ML MDV SUBQ STA (17:15)
[2018-11-12] MEDS ORDERED: DEXTROSE 10% 250 ML IV STA (17:15)
[2018-11-12] MEDS ORDERED: ACETAMINOPHEN 325 MG TABLET PO PRN (17:36)
[2018-11-12] MEDS ORDERED: oxyCODONE 5 MG TABLET PO PRN (17:36)
[2018-11-12] MEDS ORDERED: ONDANSETRON 4 MG/2 ML VIAL IVP PRN (17:36)
[2018-11-12] MEDS ORDERED: ONDANSETRON ODT 4 MG TABLET TL PRN (17:36)
[2018-11-12] MEDS ORDERED: SODIUM CHLORIDE FLUSH 0.9% 10 ML SYRINGE IVP PRN (17:36)
[2018-11-12] MEDS: SODIUM CHLORIDE 0.9% 1,000 ML IV SCH (20:02)
--- NOTE | 2018-11-12 20:45 | HISTORY & PHYSICAL EXAMINATION ---
DATE OF SERVICE: 11/12/2018 Physician: Daniella Pierson MD PRIMARY CARE PROVIDER: Denis Mccall MD. ADMITTING PROVIDER: Daniella Pierson MD. CHIEF COMPLAINT: Worsening mental status. HISTORY OF PRESENT ILLNESS: This is a multiple sclerosis patient well known to our service. Because of the multiple sclerosis, he spends most of his time in a wheelchair because of bilateral lower limb weakness, and he has a chronic indwelling suprapubic catheter. He has been admitted multiple times for urosepsis or chronic UTI with altered mental status. In reviewing the medical record to 2012, his urine cultures have grown out Serratia marcescens, E. coli, Klebsiella oxytoca, Klebsiella ozaenae, Enterococcus faecalis. He received cefixime 400 mg a day for 10 days, stopped approximately 11/05/2018. This was for another Serratia UTI diagnosed on 10/29/2018. After a couple of days, felt that the patient's symptoms of a UTI were worsening. In reviewing the medical record in the primary care office, it is unclear what the symptoms are. There is no description of fever, chills, flank pain, urinary retention, sweats; just that "symptoms had returned." Because of increased symptoms, he was re-seen 11/07/2018. Urine culture and sensitivity from 11/09/2018 once again showed Serratia marcescens. He had been resumed on his antibiotic, and he is day #4 of a planned 10 days. The Serratia is sensitive to cefepime, ceftriaxone, ertapenem, gentamicin, piperacillin, tobramycin, and Bactrim. I am not sure where he had his tizanidine increased. I am not seeing that noted in his medical record in the PCP office, but his tizanidine was increased from 8 mg once a day to 8 mg t.i.d. Today the noted that she could not wake him up. He was very drowsy, so she called an ambulance and had him brought in. She feels that it is a urinary tract infection. In addition to his drowsiness, Dr. De Guzman has evaluated him and found him to be afebrile. His chronic kidney disease has worsened. He is usually with a creatinine of 1.4 to 1.5; today's creatinine is 2.5. Potassium is 5.9. He has been treated with insulin and glucose in the emergency room. His urinalysis looks quite impressive with quite a bit of debris in it. Dr. De Guzman felt the patient should not receive antibiotics because of no white cell count and no fever; but the , again, feels that he needs to continue his antibiotic therapy for the chronic colonization Serratia identified on the 11/09/2018 urine C and S. PAST MEDICAL HISTORY 1. Multiple sclerosis with chronic lower extremity pain that leaves him wheelchair bound and bedbound with a suprapubic catheter from a neurogenic bladder. Question of cognitive deficit. He is seen in the [facility] clinic, and his Thomas is changed every 4 weeks. 2. Type 2 diabetes mellitus, controlled. 3. Hypertension. 4. Hyperlipidemia. 5. Depression. 6. TMJ syndrome. 7. Trigeminal neuralgia. 8. Bilateral shoulder pain. 9. History of cholecystectomy. 10. Depressive disorder. 11. Chronic kidney disease. ALLERGIES TO 1. METFORMIN. 2. TAMSULOSIN. 3. BACTRIM. MEDICATIONS 1. Cefixime 400 mg p.o. b.i.d. 2. Tegretol XR 200 mg p.o. b.i.d. 3. Tizanidine 8 mg p.o. t.i.d. 4. Bactrim double strength is listed in his current medication list, EVEN THOUGH HE IS ALLERGIC TO IT, at b.i.d. 5. Simvastatin 40 daily. 6. Sertraline 25 mg daily. 7. Metoprolol XL 50 mg p.o. q.p.m. 8. Lisinopril 45 mg daily. 9. Lantus 40 units b.i.d. 10. NovoLog FlexPen 0-10 units sub-q. t.i.d. with meals. 11. Glatopa 40 mg Sunday, Sunday, Sunday. 12. Gabapentin 600 mg at noon and 1400 hours; 300 mg at 8, 1700, and 2100 hours. 13. Lasix 40 mg daily. 14. Diflucan 200 mg daily. 15. Vitamin D 1000 units daily. 16. Baclofen also noted at 20 mg b.i.d. 17. Aspirin 81 mg daily. SOCIAL HISTORY: He lives at home with his . They have a hospital bed, and they also have a care provider. He is a former smoker that quit in 1989. He does not have any history of alcohol abuse. He has no history of recreational substance abuse. FAMILY HISTORY: Positive for diabetes. No history of heart disease, stroke, or cancer. CODE STATUS: DO NOT RESUSCITATE/DO NOT INTUBATE. REVIEW OF SYSTEMS: is not at the bedside at this time. He is obtunded, very sleepy, does respond to voice, but not able to answer my questions at this time. PHYSICAL EXAMINATION VITAL SIGNS: Temperature is 36.5, pulse is 72, blood pressure is 150/73, respirations 10 and unlabored, 92% on room air. GENERAL: Exam reveals him to be a tall, white male, quite pale, male pattern baldness with delacruz, sleeping quite soundly but will wake to just voice alone. Will say, "Hey," and then go back to sleep. HEAD AND NECK: Unremarkable. Oral mucosa is relatively moist, does not appear dehydrated. Sclerae nonicteric and pupils are reactive when I open up his eyelids. Face is slack with sleepiness, but there is no facial asymmetry. Neck is supple. No goiter or bruits. LUNGS: Sonorous breath sounds diffusely. Slow, unlabored respiration. No crackles, rhonchi, or wheezing. HEART: PMI normally placed with a regular rate and rhythm. No murmurs, rubs, or gallops. ABDOMEN: Soft, nontender, hyperactive bowel sounds, no masses palpable. With deep palpation, the patient does not respond; there is no grimacing of pain. EXTREMITIES: Warm, there is no mottling, no coolness. Mild edema around his ankles, but nonpitting. No clubbing or cyanosis. NEUROLOGIC: He opens his eyes to speech. Best verbal response is to say "yes" or "no." He moves his extremities away from me to localized pain. [place] coma scale is 12. LABORATORY DATA: Sodium is 136, potassium 5.9. Carbon dioxide 20, anion gap 14, BUN 78, creatinine 2.5. GFR is 26. Glucose is 114. Liver enzymes normal, white cell count 9.8, hemoglobin 9.9, hematocrit 30.9. Platelets are 281. Urinalysis has moderate leukocyte esterase, large amount of occult blood, 11-25 red cells, greater than 25 white cells, a few squamous cells, hyaline casts, rare bacteria. Urine toxicology screen negative. Ethyl alcohol less than 5, acetaminophen less than 10, salicylates less than 4. Head CT was done because of his somnolence. Compared to 10/29/[address] No sinusitis, no acute intracranial abnormality. ASSESSMENT/PLAN 1. Acute metabolic encephalopathy. Differential diagnosis in this gentleman, who has chronic UTIs and presents with metabolic encephalopathy and contaminated urine, could definitely be an incompletely treated UTI; however, he has been on antibiotics on a daily basis. As such, my other thought process with his metabolic encephalopathy would be the tizanidine that was tripled in dose. Other causes of his metabolic encephalopathy include the acute renal failure. PLAN: Observation status to see if he will respond to hydration, Thomas placement, and continue antibiotics. ATTESTATION: The patient will be discharged within 96 hours. 2. Acute renal failure superimposed on chronic kidney disease stage 2. does not describe decreased p.o. intake. He slept quite a bit this weekend but woke up enough to have 3 normal meals for the last 2 days per day, for adequate p.o. intake. Thomas was draining appropriately. Nevertheless, BUN and creatinine are abruptly elevated with an anion gap. We will hydrate with normal saline. Reassess in the morning. 3. Hyperkalemia associated with acute renal failure. Given insulin and glucose in the emergency room. We will recheck potassium 4 hours later. 4. Type 2 diabetes mellitus, controlled, without complications. We will resume using long-acting insulin but at a lower dose. He is asleep, not eating; I do not want him to get hypoglycemic. We will also give low-dose sliding scale insulin. 5. Hypertension history. Currently controlled in the emergency room. Usually takes lisinopril, metoprolol. We will reorder those medications. 6. DO NOT RESUSCITATE STATUS. 7. Deep venous thrombosis prophylaxis will be DIANA chávez and Demarco. TD: 11/12/2018 19:25 KELSEY
[2018-11-12] MEDS: MIN OIL/DIMETHICON/COCONUT OIL 92 GM TUBE TOP PRN (21:30)
[2018-11-12] MEDS: CEFEPIME 1 GM in SODIUM CHLORIDE 0.9% MINIBAG 100 ML IV SCH (21:31)
[2018-11-13] MEDS: SODIUM CHLORIDE FLUSH 0.9% 10 ML SYRINGE IVP SCH ×3 (01:48→17:06)
[2018-11-13 05:53] LABS: CALCIUM 8.2 mg/dL (8.5-10.3); CREATININE 1.6 mg/dL (0.6-1.2)
[2018-11-13] MEDS ORDERED: DEXTROSE 50% ABBOJECT 25 GM/50 ML SYRINGE IVP STA (06:01)
[2018-11-13] MEDS: CEFEPIME 1 GM in SODIUM CHLORIDE 0.9% MINIBAG 100 ML IV SCH ×2 (06:02→13:33)
[2018-11-13] MEDS: SODIUM CHLORIDE 0.9% 1,000 ML IV SCH ×3 (06:02→13:29)
[2018-11-13] MEDS ORDERED: carBAMazepine ER 200 MG TABLET PO SCH (09:00)
[2018-11-13] MEDS ORDERED: METOPROLOL SUCCINATE 50 MG TABLET PO SCH (09:00)
[2018-11-13] MEDS ORDERED: POLYETHYLENE GLYCOL 3350 17 GM PACKET PO SCH (09:00)
[2018-11-13] MEDS: MIN OIL/DIMETHICON/COCONUT OIL 92 GM TUBE TOP PRN (09:17)
[2018-11-13] MEDS ORDERED: INSULIN GLARGINE 300 UNIT/3 ML PEN SUBQ SCH ×2 (11:42→21:00)
[2018-11-13 13:25] LABS: CALCIUM 8.5 mg/dL (8.5-10.3); CREATININE 1.3 mg/dL (0.6-1.2)
[2018-11-13] MEDS: INSULIN ASPART 300 UNIT/3 ML PEN SUBQ SCH ×2 (13:29→17:06)
[2018-11-13 13:50] LABS: HB2 TOTAL 10.6 g/dL; HEMOGLOBIN A1C 0.75 g/dL; HEMOGLOBIN A1C % 8.6 % (4.6-6.2)
[2018-11-13 15:43] VITALS: BP 147/68
--- NOTE | 2018-11-13 16:50 | Discharge Plan ---
Discharge Plan Problem Reviewed?: Yes Disposition: Home, Self Care Condition: Stable Diet: Diabetic Activity Restrictions: Activity as Tolerated Shower Restrictions: No Driving Restrictions: Yes Assistance Devices: Wheelchair Health Concerns: You were brought into the hospital because of excessive sleepiness and unable to get out of bed. You have been having spasmodic movements prior to this. Your did call the neurologist and his funeral director's assistant authorized increase of your tizanidine from once a day to 3 times a day. You sleepiness seem to have resulted from that. When we evaluated you for a another urinary tract infection (you are already on antibiotics for Serratia marcescens), your urine culture is negative. You do not have a fever nor do you have an elevated white cell count. Plan of Treatment: You have woken up today. Been able to eat your breakfast and dinner. Initially you had an abrupt rise in your BUN and creatinine which measures your kidney function test. We cannot tell if you were either very dehydrated or had an obstruction in your Thomas catheter. Your feels that neither was probable since you were eating and drinking and did not have a blockage in your Thomas. In any case, you responded to IV fluids and your creatinine is now back to the baseline that it was of 1.5. Care Goals: Please follow-up with your neurologist. Do not take more than once a day tizanidine at this time. If your involuntary spasms return, your will need you to see him. Assessment: At this time there is resolution of your sleepiness. You are back to baseline. You are not having any involuntary movements. Please continue your oral an tibiotics until they are completed for your recurrent urinary tract infection. No Smoking: If you smoke, Please STOP! Call for help. Follow-up with: Denis Mccall MD [Primary Care Provider] -
--- NOTE | 2018-11-14 00:12 | DISCHARGE SUMMARY ---
Physician: Daniella Pierson MD DATE OF ADMISSION: 11/12/2018 DATE OF DISCHARGE: 11/13/2018 PRIMARY CARE PROVIDER: Denis Mccall MD DISCHARGE DIAGNOSES 1. Acute metabolic encephalopathy. 2. Urinary tract infection with Serratia marcescens. 3. Suprapubic catheter present on admission, chronic indwelling and the urinary tract infection was present on admission. 4. Acute renal failure superimposed on chronic kidney disease, stage II. 5. Hyperkalemia. 6. Type 2 diabetes mellitus, controlled without complications. 7. Hypertension. DISCHARGE MEDICATIONS 1. Aspirin 81 mg daily. 2. Baclofen 20 mg p.o. t.i.d. 3. Tegretol extended release 100 mg daily. 4. Cefixime 400 mg capsule p.o. daily. 5. Vitamin D 1000 units b.i.d. 6. Lasix 40 mg daily. 7. Gabapentin 300 mg at night and 600 mg in the morning and dinner. 8. Copaxone 40 mg subcutaneously Sunday, Sunday, Sunday. 9. NovoLog FlexPen sliding scale insulin before meals. 10. Lantus 32 units nightly. 11. Lisinopril 30 mg daily. 12. Metoprolol XL 50 mg daily. 13. Zoloft 50 mg daily. 14. Simvastatin 40 mg q.p.m. 15. Tizanidine 8 mg q.p.m. PRINCIPAL PROCEDURES 1. Head CT with no acute intracranial abnormality. 2. Urine culture, catheterized, no growth. HOSPITAL COURSE: The patient is a 68-year-old man who has multiple sclerosis and is wheelchair and b edbound. Legs are predominantly the main problem that he is weak and not able to ambulate. He has a neurogenic bladder with an indwelling suprapubic catheter present on admission. It is usually goins ed by the [facility] clinic. Last time it was checked was over four weeks ago and was done in the emergency room. He is due to get it checked next week with the [facility]. He was recently treated for UTI through his PCP office after completing treatment for Serratia marces cens. He is on day 5 of 10 of another course of treatment for Serratia marcescens with cefixime. , he started having increased jerking movements that he attributed to his neurological dise ase and spoke to his neurologist. Rather, he spoke to the medical numerical control operator for the neurologist. He was told that it was okay to increase his Tizanidine 8 mg once a day to 8 mg t.i.d. He has had subs equent severe lethargy because of this, that he is no longer waking up or getting out of bed. He was brought to the emergency room where he was afebrile, and obtunded. Did respond to sternal rub and voice, but would go right back to sleep. New lab findings was that of an abruptly elevated BUN and creatinine. Usual baseline for this gentleman is 1.4-1.5. is adamant that he has been adeq uately hydrated and taking good p.o. intake, so he is not dehydrated. She is also adamant that he chavez s had good drainage from his Thomas, so he was not obstructed. He was placed in observation. CT of t he head has been negative. White cell count was normal. He was continued on antibiotics for Serrati a, and he will resume those in the outpatient setting. He woke up without any further interventions and his usual medications were resumed. He was kept until the late afternoon to make sure his BUN an d creatinine came down to normal. BUN started at 78 and was 46 at discharge. Creatinine started at 2.5 and was 1.3 at discharge. Of note, his glycosylated hemoglobin is 8.6 and uncontrolled. He is discharged in stable condition. He is back to baseline. Alert, joking. Slightly psychomotor slowing. Occasional speech with tongue sticking to the roof of his mouth. The oral mucosa are moist . He has eaten breakfast and lunch. Lungs have diminished breath sounds at the bases and slow, shal low and unlabored respirations present. PMI is normally placed with a regular rate and rhythm. The abdomen is soft, nontender. Suprapubic catheter in place. He has severe bilateral lower extremity w eakness, but he is able to move his legs, even able to lift his left leg off the bed. Upper extremit ies are also weak, but with intention and slowness is able to bring food to his mouth from the tray i n front of him if he does it slowly. He uses a motorized wheelchair and that will be used to get him to his car and home. I have asked him to follow up with his primary care provider. Follow up with his neurologist. cc: Denis Mccall MD TD: 11/13/2018 18:43
== END 2018-11-13 18:10 | disposition home or self-care (01) ==
LOC: ED 12:42 → MS2 17:36
PROVIDERS: ADMIT Specialist; ATTEND Specialist
DX: T42.8X1A Poisoning by antiparkinsonism drugs and other central muscle-tone depressants, accidental (unintentional), initial encounter (principal); G93.41 Metabolic encephalopathy; N39.0 Urinary tract infection, site not specified; B96.89 Other specified bacterial agents as the cause of diseases classified elsewhere; N17.9 Acute kidney failure, unspecified; I12.9 Hypertensive chronic kidney disease with stage 1 through stage 4 chronic kidney disease, or unspecified chronic kidney disease; E11.22 Type 2 diabetes mellitus with diabetic chronic kidney disease; N18.2 Chronic kidney disease, stage 2 (mild); E87.5 Hyperkalemia; N31.9 Neuromuscular dysfunction of bladder, unspecified; Y92.009 Unspecified place in unspecified non-institutional (private) residence as the place of occurrence of the external cause; G35 Multiple sclerosis; J45.909 Unspecified asthma, uncomplicated; G81.90 Hemiplegia, unspecified affecting unspecified side; F32.9 Major depressive disorder, single episode, unspecified; E78.5 Hyperlipidemia, unspecified; L40.9 Psoriasis, unspecified; M26.629 Arthralgia of temporomandibular joint, unspecified side; G50.0 Trigeminal neuralgia; M25.512 Pain in left shoulder; M25.511 Pain in right shoulder; Z99.3 Dependence on wheelchair; Z66 Do not resuscitate; Z93.59 Other cystostomy status; Z79.4 Long term (current) use of insulin; Z79.82 Long term (current) use of aspirin; Z79.2 Long term (current) use of antibiotics; Z90.49 Acquired absence of other specified parts of digestive tract; Z87.440 Personal history of urinary (tract) infections
CPT/HCPCS: 36415; 70450; 80048; 80053; 81001; 83036; 83690; 84132; 85025; 87086; 93005; 96361; 96365; 96366; 99285; A6250; A9270; G0378; J1815; 80306; 80307; 80320; 80329; 81003

== ENCOUNTER 2018-11-21 | Outpatient (CLI) | payer MEDICARE, OTHER | END 2018-11-21 11:00 | disposition critical access hospital (66) | DX: S09.90XA Unspecified injury of head, initial encounter (principal); R41.0 Disorientation, unspecified; S50.312A Abrasion of left elbow, initial encounter; R53.1 Weakness; V00.811A Fall from moving wheelchair (powered), initial encounter; Y92.480 Sidewalk as the place of occurrence of the external cause | CPT/HCPCS: A0425; A0429 ==

== ENCOUNTER 2018-11-21 11:18 | Observation (INO) | payer MEDICARE, OTHER ==
[2018-11-21] MEDS ORDERED: TETANUS/DIPHTHERIA/PERTUSSIS 0.5 ML SYRINGE IM ONE (12:05)
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
[2018-11-21 12:44] LABS: BASOPHILS % (AUTO) 0.6 %; EOSINOPHILS # (AUTO) 0.3 10^3/uL (0.0-0.7); EOSINOPHILS % (AUTO) 4.3 %; HGB - HEMOGLOBIN 10.1 g/dL (14.0-18.0); LYMPHOCYTES # (AUTO) 1.6 10^3/uL (1.5-3.5); LYMPHOCYTES % (AUTO) 22.9 %; MEAN CORPUSCULAR HEMOGLOBIN 27.7 pg (27.0-31.0); MEAN CORPUSCULAR HGB CONC 31.4 g/dL (32.0-36.0); MEAN CORPUSCULAR VOLUME 88.5 fL (80.0-94.0); MEAN PLATELET VOLUME 9.1 fL (7.4-11.4); MONOCYTES # (AUTO) 0.5 10^3/uL (0.0-1.0); MONOCYTES % (AUTO) 7.1 %; NEUTROPHILS # (AUTO) 4.7 10^3/uL (1.5-6.6); PLT - PLATELET COUNT 255 10^3/uL (130-450); RED BLOOD COUNT 3.64 10^6/uL (4.70-6.10); RED CELL DISTRIBUTION WIDTH 14.2 % (12.0-15.0); WHITE BLOOD COUNT 7.2 x10^3/uL (4.8-10.8)
--- NOTE | 2018-11-21 12:50 | CT Report ---
Reason: poss head inj Procedure Date: 11/21/2018 Accession Number: [id number] / [id number] Procedure: CT - HEAD WO CPT Code: FULL RESULT: EXAM: CT HEAD EXAM DATE: 11/21/2018 12:34 PM. CLINICAL HISTORY: Poss head inj. COMPARISON: HEAD W/O 11/12/2018 4:02 PM. TECHNIQUE: Multiaxial CT images were obtained from the foramen magnum to the vertex. Reformats: Sagittal and coronal. IV contrast: None. In accordance with CT protocol optimization, one or more of the following dose reduction techniques were utilized for this exam: automated exposure control, adjustment of mA and/or KV based on patient size, or use of iterative reconstructive technique. FINDINGS: Parenchyma: No intraparenchymal hemorrhage. No evidence of mass, midline shift, or CT findings of acute infarction. Pavon-white differentiation is distinct. Diffuse chronic microangiopathic white matter changes are evident. Extraaxial Spaces: Normal for age. No subdural or epidural collections identified. Ventricles: The ventricles and cortical sulci are enlarged, consistent with age-related tissue loss. Sinuses and orbits: Mucosal thickening right frontal, ethmoid sphenoid sinuses. Imaged , orbits, and mastoids show no significant abnormality. Bones: No evidence of fracture or calvarial defect. Other: None. IMPRESSION: Generalized age-related cortical atrophic changes without evidence of acute intracranial abnormality. RADIA
--- NOTE | 2018-11-21 12:58 | CT Report ---
Reason: head inj Procedure Date: 11/21/2018 Accession Number: [id number] / [id number] Procedure: CT - CERVICAL SPINE WO CPT Code: FULL RESULT: EXAM: CT CERVICAL SPINE WITHOUT CONTRAST DATE: 11/21/2018 12:34 PM. HISTORY: Head inj. Fall, hit head COMPARISONS: HEAD W/O 11/12/2018 4:02 PM. TECHNIQUE: Thin-section axial images were acquired of the cervical spine without contrast. Post-processing: Coronal and sagittal reformats. Other: None. In accordance with CT protocol optimization, one or more of the following dose reduction techniques were utilized for this exam: automated exposure control, adjustment of mA and/or KV based on patient size, or use of iterative reconstructive technique. FINDINGS: Alignment: Dextroscoliosis. No spondylolisthesis Bones: No fracture or bone lesion. Interspace Levels/Facets: C4-C5 mild disk space narrowing. C5-C6, C6-C7 osteophyte, disk space narrowing, subchondral sclerosis, uncovertebral osteophyte. C5-C6 and C6-C7 right neuroforamina narrowing. Musculature: Normal. No fatty atrophy. Other: The paravertebral and prevertebral soft tissues are unremarkable. The lung apices are clear. IMPRESSION: Mild to moderate DJD RADIA
[2018-11-21 13:08] LABS: ALBUMIN 3.7 g/dL (3.2-5.5); ALBUMIN/GLOBULIN RATIO 0.9 (1.0-2.2); ALKALINE PHOSPHATASE 124 IU/L (42-121); ALT ALANINE AMINOTRANSFERASE 22 IU/L (10-60); AST ASPARTATE AMINOTRANSFERASE 18 IU/L (10-42); BILIRUBIN,TOTAL 0.5 mg/dL (0.2-1.0); BUN - BLOOD UREA NITROGEN 47 mg/dL (6-20); CALCIUM 9.2 mg/dL (8.5-10.3); CARBON DIOXIDE - CO2 25 mmol/L (21-32); CHLORIDE 99 mmol/L (101-111); CREATININE 1.8 mg/dL (0.6-1.2); GFR - MDRD 37 (>89); GLUCOSE 139 mg/dL (70-100); LIPASE 66 U/L (22-51); SODIUM 134 mmol/L (135-145); TOTAL PROTEIN 7.7 g/dL (6.7-8.2)
[2018-11-21] MEDS ORDERED: SODIUM CHLORIDE 0.9% 1,000 ML IV ONE ×2 (13:11)
[2018-11-21] MEDS ORDERED: SODIUM CHLORIDE FLUSH 0.9% 10 ML SYRINGE IVP PRN (13:49)
[2018-11-21] MEDS ORDERED: DEXTROSE 5%-0.9% NACL 1,000 ML IV SCH (14:00)
[2018-11-21] MEDS: BACLOFEN 10 MG TABLET PO SCH ×2 (16:57→21:27)
[2018-11-21] MEDS: SODIUM CHLORIDE FLUSH 0.9% 10 ML SYRINGE IVP SCH (17:00)
[2018-11-21 18:13] LABS: CREATININE 1.5 mg/dL (0.6-1.2)
--- NOTE | 2018-11-21 19:44 | HISTORY & PHYSICAL EXAMINATION ---
DATE OF SERVICE: 11/21/2018 Physician: Ana Perez MD HISTORY OF PRESENT ILLNESS: This is a 68-year-old white male with a history of diabetes on insulin, history of chronic kidney disease, history of multiple sclerosis with neurogenic bladder requiring a chronic indwelling Thomas. He has had prior UTIs, the most recent was just 2 weeks ago when he presented with confusion and was treated for Serratia marcescens with cefixime which has now been completed. Today, patient went out in his motorized wheelchair and the wheel caught on some part of a curb, it tipped and he fell onto his elbow and head. He was brought to the emergency room. He had a scrape of the elbow and head, which were both imaged and showed no trauma. His labs revealed hyperkalemia, and he is being admitted into Observation status for IV fluid management, telemetry monitoring and other treatment of the hyperkalemia if needed. PAST MEDICAL HISTORY: Chronic kidney disease, hypertension, diabetes on insulin, multiple sclerosis, chronic indwelling Thomas, recurrent UTIs. 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 He is mostly wheelchair bound. ALLERGIES 1. METFORMIN. 2. TAMSULOSIN. 3. BACTRIM. MEDICATIONS 1. Tegretol XR 200 mg b.i.d. 2. Carbamazepine ER 100 mg every night. 3. Tizanidine 8 mg every night. 4. Simvastatin 40 mg every night. 5. Zoloft 50 mg daily. 6. Toprol-XL 50 mg every night. 7. Lisinopril 30 mg daily. 8. Lantus insulin 32 units probably at bedtime only. 9. NovoLog FlexPen sliding scale with meals. 10. Copaxone 40 mg subcutaneously on Sunday, Sunday, Sunday. 11. Neurontin 600 mg b.i.d. and an additional 300 mg at night. 12. Lasix 40 mg daily. 13. Vitamin D3 1000 units b.i.d. 14. Baclofen 20 mg t.i.d. 15. Aspirin 81 mg daily. REVIEW OF SYSTEMS: This was done with chart review, since patient cannot give details. Patient does not know why he is on Lasix. 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 A comprehensive review of systems was performed and the pertinent positives are listed, the rest are negative. FAMILY HISTORY: Noncontributory. SOCIAL HISTORY: He lives with his . He is wheelchair bound. No alcohol or smoking history. PHYSICAL EXAMINATION GENERAL: Elderly white male, moderately obese, with a BMI of 31.4. HEENT: Unremarkable. He has male pattern baldness and a large delacruz. His oral mucosa is moist. He has good dentition. NECK: Without JVD or carotid bruits. CHEST: Clear. HEART: Normal heart sounds without murmurs. ABDOMEN: Obese, nontender. Normal bowel sounds. There is a chronic indwelling urinary catheter. EXTREMITIES: His legs have 2+ ankle edema. NEUROLOGIC: Weakness of the legs, bradykinetic overall but good diction, otherwise grossly within normal limits. LABORATORY DATA: Sodium 134, potassium 6.1, BUN 47, creatinine 1.6. Liver tests normal. Alkaline phosphatase 124, lipase high at 66. White blood count 7.2, hemoglobin 10 with an MCV of 88, platelet count normal at 255. No INR was done. Toxicology had no blood alcohol present. No chest x-ray was done. EKG: Normal sinus rhythm with a rate of 71, normal intervals, RSR' in V1 and V2 and he has early repolarization, which are old, no changes compared to 11/12/2018. His labs from 11/12/2018 showed that his BUN was as high as 78, creatinine 2.5, but improved down to 1.3 at the time of discharge 2 weeks ago. IMPRESSION/DIAGNOSES 1. Hyperkalemia. 2. Chronic kidney disease. 3. Hypertension. 4. Diabetes on insulin. 5. Multiple sclerosis with lower extremity weakness, mostly wheelchair bound. 6. Chronic Thomas catheter. 7. Recurrent urinary tract infections. PLAN: Place patient in Observation status, on telemetry, watching for arrhythmias because of the hyperkalemia. Begin treatment with insulin and IV hydration to promote correction of serum potassium. Follow the potassium every 6-12 hours. If needed, he will get Kayexalate or insulin and D50. Follow BMP. Recommend holding the lisinopril, which could be adding to potassium retention and hyperkalemia. Hold the Lasix at this time since we are hydrating him. Continue with a diabetic diet and his long-acting insulin and sliding scale insulin. Also add low potassium and low sodium to his diet restrictions. Continue with management of the Thomas catheter since it is chronic. DEEP VENOUS THROMBOSIS PROPHYLAXIS: DIANA stockings and SCDs. CODE STATUS: Patient himself states he wants to be a FULL CODE. There is a resuscitation form in the [facility] records dated from 2012 that states he wants FULL CODE status. In his last 2 admissions, he was a DO NOT RESUSCITATE. I tried to reach the to confirm what his Code status is, but there was no answer, I left a message requesting a call back. ATTESTATION: The patient is expected to be discharged or transferred to another facility within 96 hours: Yes. TD: 11/21/2018 18:19 KELSEY
[2018-11-21] MEDS ORDERED: INSULIN GLARGINE 300 UNIT/3 ML PEN SUBQ SCH (21:00)
[2018-11-21] MEDS ORDERED: CARBAMAZEPINE 100 MG PO SCH (21:00)
[2018-11-21] MEDS ORDERED: GABAPENTIN 300 MG CAPSULE PO SCH (21:00)
[2018-11-21] MEDS ORDERED: carBAMazepine ER 200 MG TABLET PO SCH (21:00)
[2018-11-21] MEDS: carBAMazepine ER 200 MG TABLET PO SCH (21:27)
[2018-11-21] MEDS: METOPROLOL SUCCINATE 50 MG TABLET PO SCH ×2 (21:27→21:28)
[2018-11-21] MEDS: tiZANidine 4 MG TABLET PO SCH (21:27)
[2018-11-21] MEDS: CHOLECALCIFEROL 1,000 UNIT TABLET PO SCH (21:28)
[2018-11-21] MEDS: INSULIN GLARGINE 300 UNIT/3 ML PEN SUBQ SCH (21:28)
[2018-11-21] MEDS: GABAPENTIN 300 MG CAPSULE PO SCH (21:28)
[2018-11-21] MEDS: INSULIN ASPART 300 UNIT/3 ML PEN SUBQ SCH (21:29)
[2018-11-21] MEDS: SIMVASTATIN 40MG TAB PO SCH (23:22)
[2018-11-21] MEDS: ASPIRIN CHEW 81 MG TABLET PO SCH (23:22)
[2018-11-22] MEDS: SODIUM CHLORIDE FLUSH 0.9% 10 ML SYRINGE IVP SCH ×3 (00:52→17:49)
[2018-11-22] MEDS ORDERED: SODIUM CHLORIDE 0.9% 1,000 ML IV SCH (01:00)
[2018-11-22 04:54] LABS: BASOPHILS % (AUTO) 0.4 %; EOSINOPHILS # (AUTO) 0.3 10^3/uL (0.0-0.7); EOSINOPHILS % (AUTO) 5.5 %; HGB - HEMOGLOBIN 9.3 g/dL (14.0-18.0); LYMPHOCYTES # (AUTO) 1.6 10^3/uL (1.5-3.5); LYMPHOCYTES % (AUTO) 27.7 %; MEAN CORPUSCULAR HEMOGLOBIN 28.5 pg (27.0-31.0); MEAN CORPUSCULAR HGB CONC 32.3 g/dL (32.0-36.0); MEAN CORPUSCULAR VOLUME 88.3 fL (80.0-94.0); MEAN PLATELET VOLUME 9.4 fL (7.4-11.4); MONOCYTES # (AUTO) 0.4 10^3/uL (0.0-1.0); MONOCYTES % (AUTO) 7.5 %; NEUTROPHILS # (AUTO) 3.3 10^3/uL (1.5-6.6); NEUTROPHILS % (AUTO) 58.5 %; PLT - PLATELET COUNT 262 10^3/uL (130-450); RED BLOOD COUNT 3.26 10^6/uL (4.70-6.10); RED CELL DISTRIBUTION WIDTH 13.9 % (12.0-15.0); WHITE BLOOD COUNT 5.6 x10^3/uL (4.8-10.8)
[2018-11-22 05:05] LABS: CALCIUM 8.7 mg/dL (8.5-10.3); CREATININE 1.2 mg/dL (0.6-1.2)
[2018-11-22 05:11] LABS: HB2 TOTAL 9.9 g/dL; HEMOGLOBIN A1C 0.61 g/dL; HEMOGLOBIN A1C % 7.8 % (4.6-6.2)
[2018-11-22] MEDS: BACLOFEN 10 MG TABLET PO SCH ×3 (06:25→21:01)
--- NOTE | 2018-11-22 07:43 | Discharge Plan ---
Discharge Plan Problem Reviewed?: Yes Disposition: Home, Self Care Condition: Stable Diet: Diabetic Activity Restrictions: Activity as Tolerated Shower Restrictions: No Driving Restrictions: Yes Assistance Devices: Wheelchair Instruction Topics: Kidney Probs, Kidney Disease Potassium Health Concerns: Fall from wheelchair led to ER evaluation where kidney stress from dehydration and very high Potassium was found. The Potassium improved with hydration and discontinuing the BP medication Lisinopril (which retains Potassium). Plan of Treatment: Stay better hydrated better and NO LONGER take Lisinopril. See your PCP if a replacement BP medication is even needed. Care Goals: Return to previous status. Assessment: Printed directions and summary are for caregiver (). Additional Instructions or Follow Up instructions: Call your doctor to arrange a follow-up appointment. In the interim, return anytime if worse or if new symptoms develop. No Smoking: If you smoke, Please STOP! Call for help.
[2018-11-22] MEDS: CHOLECALCIFEROL 1,000 UNIT TABLET PO SCH ×2 (08:35→20:55)
[2018-11-22] MEDS: GABAPENTIN 300 MG CAPSULE PO SCH ×3 (08:36→20:56)
[2018-11-22] MEDS: INSULIN ASPART 300 UNIT/3 ML PEN SUBQ SCH ×4 (08:36→20:51)
[2018-11-22] MEDS: carBAMazepine ER 200 MG TABLET PO SCH ×4 (08:36→21:02)
[2018-11-22] MEDS: SERTRALINE 50 MG TABLET PO SCH (08:36)
[2018-11-22] MEDS: POLYETHYLENE GLYCOL 3350 17 GM PACKET PO SCH (08:37)
--- NOTE | 2018-11-22 10:45 | ADVANCE CARE PLANNING NOTE ---
Advance Care Planning - Planning Encounter Date: 11/22/18 Time: 10:00 Purpose: To determine his baseline mentation and cognition, and capacity to make informed decisions. To establish Code Status. Parties in Attendance: This Hospitalist spoke to the , patient and the MARILOU Grazyna Parker was in the room for part of the meeting. Decisional Capacity of the Patient: Today the patient appears fatigued, is answering in 1 or 2 word sentences, is having his jerking movements (which, according to the , this is his multiple sclerosis symptom). On his last admission he had severe confusion, which was considered metabolic encephalopathy, caused by his (urinary tract) infection. The describes that she makes all his decisions normally and signs all his consent forms for procedures, for example. - Diagnosis for Encounter (1) Multiple sclerosis Summary: This has caused lower extremity weakness, he is wheelchair bound, and has a chronic indwelling Thomas. (2) Somnolence Summary: The noticed that he is more sleepy today, which happens when he is dehydrated or is starting to get an infection. The Cefixime oral antibiotics, for the last UTI admission, were just completed 4 days ago. - Encounter Subjective/Patient's Story: He fell yesterday, outdoors when his electric wheelchair tipped. He was brought into the ER to check for trauma, which was not found but his labs showed hyperkalemia and acute on chronic renal failure. He was admitted for telemetry, adjusting meds, iv hydration and treating high Potassium. Today, he is more somnolent than yesterday. The states he will just go home and sleep, not hydrate, and will likely return to the ER in several days. Objective/Medical Story: This is a 68-year-old white male with history of hypertension, diabetes on insulin, multiple sclerosis which has left him with near hemiparesis, is wheelchair-bound, has a chronic indwelling Thomas. He has frequent UTIs. He was just admitted here with mental status changes, felt to be related to a significant urinary tract infection. On that admission, he requested to be a DNR to the admitting MD (I confirmed that request by speaking to Dr Jenkins separately). He was discharged home to complete full course of oral antibiotics. When he was admitted yesterday, I discussed resuscitation with him and he stated he wanted full resuscitation status. I was unable to reach the to confirm this yesterday, therefore, there was conflicting information. Goals of Care: Continue with aggressive management for treatable conditions. The patient will say different things, and cannot be trusted with decision marilyn ing, according to the , therefore she makes decisions for him. She wishes that he be a FULL CODE and wants to fill out a POLST. Plan: POLST to be completed and signed, stating FULL CODE STATUS. He will not be discharged today, due to worsening mental status, but will continue getting iv hydration and recheck for a source of infection. Additional Discussion: The does add that if it appears that resuscitation would be fruitless, or he is in a vegetative state, that then she would want a DNR. Code Status: Attempt Resuscitation Time spent on advance care plannin min
[2018-11-22] MEDS: SODIUM CHLORIDE 0.9% 1,000 ML IV SCH ×2 (12:38→22:32)
--- NOTE | 2018-11-22 13:03 | PROVIDER PROGRESS NOTE ---
Assessment/Plan - Problem List (1) ARF (acute renal failure) Qualifiers: Acute renal failure type: unspecified Qualified Code(s): N17.9 - Acute kidney failure, unspecified Assessment/Plan: This was related to SONU-I use, diuretic use and "poor fluid intake" per the . The diuretic and Lisonopril were stopped and iv hydrated at 83cc/hr overnight. Wiill continue iv hydration, at a slightly higher rate. Remain off Lasix and Lisinopril. Follow BMP daily. (2) Dehydration Assessment/Plan: He is less communicative today, eyes appear tired. He is still dehydrated, per the 's evaluation, based on her experience of being his caregiver. (An ACP was done with the today to clarify several issues). He will be continued on iv fluids today, no DCh yet. It would be beneficial not to use Lasix in this patient, to treat ankle edema. This morning his ankles have 0 edema because he had leg elevation over 12 hours. The [facility], for him, zip up type of compression stockings which have not yet arrived, in order to treat his leg edema in that way. Perhaps Lasix could be stopped then. (3) Hyperkalemia Assessment/Plan: Improved Potassium last night, but christophe again today. Continue present plan (as in #1 and #2 above). I discussed the plan with his : he will no longer be on SONU-I and it would be beneficial to not use Lasix. Follow serum K every 6-12 hours. (4) Somnolence Assessment/Plan: As per the , this indicates infection or dehydration. Not ready for DCh today. (5) Multiple sclerosis Assessment/Plan: Chronic, with leg weakness and chronic indwelling Thomas. He is mostly wheelchair bound. His MS may have added to poor cognition as well. (6) IDDM (insulin dependent diabetes mellitus) Assessment/Plan: His A1c is 7.8, indicating fairly-good glu control. Continue on carb-controlled diet, Lantus pm dose and ss Insulin Insulin with fingerstick checks. (7) Anemia Assessment/Plan: This is made worse by hemodilution from IV hydration. Will check B12, folate levels and iron stores, and replace if low. - Current Meds Current Meds: Current Medications Generic Name Dose Route Start Last Admin Trade Name Freq PRN Reason Stop Dose Admin Aspirin 81 mg 11/21/18 21:00 11/21/18 23:22 [facility] Rajeev Aspirin PO Not Given QPM JIGNESH Baclofen 20 mg 11/21/18 14:00 11/22/18 06:25 Lioresal PO 20 mg TID JIGNESH Administration Carbamazepine 200 mg 11/21/18 21:00 11/22/18 08:36 Tegretol Xr PO 200 mg TID@0900,1700,2100 JIGNESH Administration Cholecalciferol 1,000 unit 11/21/18 21:00 11/22/18 08:35 Vitamin D3 PO 1,000 unit BID JIGNESH Administration Gabapentin 300 mg 11/21/18 21:00 11/21/18 21:28 Neurontin PO 300 mg QPM JIGNESH Administration Gabapentin 600 mg 11/21/18 21:16 11/22/18 11:20 Neurontin PO Not Given BID@0800,1200 [facility] Insulin Aspart 1 - 5 unit 11/21/18 21:00 11/22/18 11:21 Novolog SUBQ Not Given 0800,1200,1700,2100 [facility] Protocol Insulin Glargine 32 unit 11/21/18 21:00 11/21/18 21:28 Lantus Solostar SUBQ 32 unit QPM JIGNESH Administration Metoprolol Succinate 50 mg 11/21/18 21:00 11/21/18 21:28 Toprol Xl PO 50 mg QPM JIGNESH Administration Simvastatin 40mg Tab 1 each 11/21/18 21:00 11/21/18 23:22 PO Not Given QPM [facility] Polyethylene Glycol 17 gm 11/22/18 09:00 11/22/18 08:37 Miralax PO Not Given DAILY [facility] Sertraline HCl 50 mg 11/22/18 09:00 11/22/18 08:36 Zoloft PO 50 mg DAILY JIGNESH Administration Sodium Chloride 10 ml 11/21/18 17:00 11/22/18 08:36 Normal Saline Flush 0.9% IVP Not Given 0100,0900,1700 [facility] Tizanidine HCl 8 mg 11/21/18 21:00 11/21/18 21:27 Zanaflex PO 8 mg QPM JIGNESH Administration - Lab Result Fish Bone Diagrams: 11/22/18 04:15 11/22/18 04:15 - Additional Planning My Orders: My Active Orders 11/21/18 13:49 Activity Orders [RC] Q2HR IO [RC] IOSHIFT Initiate Bowel Care Protocol [RC] .protocol Initiate Line Care Protocol [RC] .protocol Initiate Personal Care Protoco [RC] .protocol Oxygen Therapy [RC] Routine Sodium Chloride Flush 0.9% [Normal Saline Flush 0.9%] 10 ml IVP PRN PRN Code Status [OTHERS] Routine Condition of Patient [OTHERS] Routine DVT Prophylaxis [OTHERS] Routine 11/21/18 13:50 Daily Weight [RC] 0600 11/21/18 13:51 DIANA Hose and SCDs [RC] QSHIFT 11/21/18 14:00 Baclofen [Lioresal] 20 mg PO TID 11/21/18 17:00 Sodium Chloride Flush 0.9% [Normal Saline Flush 0.9%] 10 ml IVP 0100,0900,1700 11/21/18 17:42 Blood Glucose Checks - Eating [RC] 0800,1200,1700,2100 Initiate Hypoglycemia Protocol [RC] .protocol 11/21/18 21:00 Aspirin Chewable [St Rajeev Aspirin] 81 mg PO QPM Cholecalciferol [Vitamin D3] 1,000 unit PO BID Gabapentin [Neurontin] 300 mg PO QPM Insulin Aspart [NovoLOG] 1 - 5 unit SUBQ 0800,1200,1700,2100 Insulin Glargine [Lantus Solostar] 32 unit SUBQ QPM Metoprolol Succinate [Toprol Xl] 50 mg PO QPM Patient Own Med [Patient Own Medication] 1 each PO QPM tiZANidine [Zanaflex] 8 mg PO QPM 11/21/18 21:16 Gabapentin [Neurontin] 600 mg PO BID@0800,1200 11/21/18 21:29 Vital Signs [RC] Q8HR 11/21/18 Dinner Carb-controlled Diet [DIET] Low Sodium Diet [DIET] 11/22/18 08:29 Initiate Discharge Checklist [RC] .ONCE 11/22/18 09:00 Polyethylene Glycol 3350 [Miralax] 17 gm PO DAILY Sertraline [Zoloft] 50 mg PO DAILY 11/22/18 10:42 Sodium Chloride 0.9% [Normal Saline 0.9%] 1,000 ml IV 100 mls/hr 11/22/18 11:26 Telemetry-Discontinue [RC] .ONCE 11/22/18 11:28 Chest 1 View X-Ray [XR] Routine UA w/ MICROSCOPIC, CULT IF [URIN] Stat 11/22/18 16:00 POTASSIUM [CHEM] Timed 11/23/18 05:00 CBC - COMP BLD CT W/AUTO DIFF [HEME] DAILYLAB CMP [COMPREHENSIVE METABOLIC PANEL] [CHEM] DAILYLAB Subjective - Subjective Nursing Reports: Confused, Other (Sleepy) Objective Vital Signs: Vital Signs - 24 hr 11/21/18 11/21/18 11/22/18 16:27 21:30 00:20 Temperature 36.6 C 36.4 C L 36.4 C L Heart Rate Heart Rate [ 74 79 72 Brachial] Respiratory 16 16 16 Rate Blood Pressure 111/76 141/65 H 100/53 L [Right Brachial artery] O2 Saturation 100 96 95 11/22/18 11/22/18 11/22/18 04:41 05:00 08:38 Temperature 36.4 C L 36.4 C L 36.8 C Heart Rate 72 Heart Rate [ 69 72 Brachial] Respiratory 16 18 18 Rate Blood Pressure 110/65 132/63 H [Right Brachial artery] O2 Saturation 95 97 96 Oxygen O2 Source Room air I&O (Last 24 Hrs): Intake and Output Totals x24h 11/20/18 11/21/18 11/22/18 23:59 23:59 23:59 Intake Total 2525 656 Output Total 975 1275 Balance 1550 -619 General: Other (Awake, but appears fatigued, is bradykinetic.) HEENT: Atraumatic, Mucous membr. moist/pink Neck: Supple, No JVD Neuro: Other (Arms have episodes of "dropping". Legs have severe chronic weakness.) Cardiovascular: Regular rate, No murmurs Respiratory: No respiratory distress Abdomen: Soft Extremities: No edema - Results Results: Laboratory Results WBC 5.6 x10^3/uL (4.8-10.8) 11/22/18 04:15 RBC 3.26 10^6/uL (4.70-6.10) L 11/22/18 04:15 Hgb 9.3 g/dL (14.0-18.0) L 11/22/18 04:15 Hct 28.8 % (42.0-52.0) L 11/22/18 04:15 MCV 88.3 fL (80.0-94.0) 11/22/18 04:15 MCH 28.5 pg (27.0-31.0) 11/22/18 04:15 MCHC 32.3 g/dL (32.0-36.0) 11/22/18 04:15 RDW 13.9 % (12.0-15.0) 11/22/18 04:15 Plt Count 262 10^3/uL (130-450) 11/22/18 04:15 MPV 9.4 fL (7.4-11.4) 11/22/18 04:15 Neut # (Auto) 3.3 10^3/uL (1.5-6.6) 11/22/18 04:15 Lymph # (Auto) 1.6 10^3/uL (1.5-3.5) 11/22/18 04:15 [place] # (Auto) 0.4 10^3/uL (0.0-1.0) 11/22/18 04:15 Eos # (Auto) 0.3 10^3/uL (0.0-0.7) 11/22/18 04:15 Baso # (Auto) 0.0 10^3/uL (0.0-0.1) 11/22/18 04:15 Absolute Nucleated RBC 0.00 x10^3/uL 11/22/18 04:15 Nucleated RBC % 0.0 /100WBC 11/22/18 04:15 Sodium 136 mmol/L (135-145) 11/22/18 04:15 Potassium 5.2 mmol/L (3.5-5.0) H 11/22/18 04:15 Chloride 104 mmol/L (101-111) 11/22/18 04:15 Carbon Dioxide 23 mmol/L (21-32) 11/22/18 04:15 Anion Gap 9.0 (6-13) 11/22/18 04:15 BUN 37 mg/dL (6-20) H 11/22/18 04:15 Creatinine 1.2 mg/dL (0.6-1.2) 11/22/18 04:15 Estimated GFR (MDRD) 60 (>89) L 11/22/18 04:15 Glucose 135 mg/dL (70-100) H 11/22/18 04:15 Glycated Hemoglobin 7.8 % (4.6-6.2) H 11/22/18 04:15 Estim Average Glucose 177 (70-100) H 11/22/18 04:15 Calcium 8.7 mg/dL (8.5-10.3) 11/22/18 04:15 Total Bilirubin 0.5 mg/dL (0.2-1.0) 11/21/18 12:36 AST 18 IU/L (10-42) 11/21/18 12:36 ALT 22 IU/L (10-60) 11/21/18 12:36 Alkaline Phosphatase 124 IU/L (42-121) H 11/21/18 12:36 Total Protein 7.7 g/dL (6.7-8.2) 11/21/18 12:36 Albumin 3.7 g/dL (3.2-5.5) 11/21/18 12:36 Globulin 4.0 g/dL (2.1-4.2) 11/21/18 12:36 Albumin/Globulin Ratio 0.9 (1.0-2.2) L 11/21/18 12:36 Lipase 66 U/L (22-51) H 11/21/18 12:36 Ethyl Alcohol < 5.0 mg/dL 11/21/18 12:36 - Procedures Procedures: Procedures INSERTION OF INFUSION DEV INTO SUP VENA CAVA, PERC APPROACH (09/05/18)
[2018-11-22 13:42] LABS: BILIRUBIN,URINE NEGATIVE (NEGATIVE); CLARITY,URINE CLEAR (CLEAR); GLUCOSE, URINE (UA) NEGATIVE (NEGATIVE); KETONES,URINE (UA) NEGATIVE (NEGATIVE); LEUKOCYTE ESTERASE, URINE TRACE (NEGATIVE); NITRITE,URINE NEGATIVE (NEGATIVE); OCCULT BLOOD,URINE TRACE-INTA (NEGATIVE); PROTEIN,URINE NEGATIVE (NEGATIVE); UROBILINOGEN,URINE 0.2 (NORMAL) E.U./dL (NORMAL)
--- NOTE | 2018-11-22 13:46 | XRAY Report ---
Reason: Somnolence, eval for resp infection Procedure Date: 11/22/2018 Accession Number: [id number] / [id number] Procedure: XR - Chest 1 View X-Ray CPT Code: 66674 FULL RESULT: EXAM: CHEST RADIOGRAPHY EXAM DATE: 11/22/2018 12:36 PM. CLINICAL HISTORY: Somnolence, evaluate for respiratory infection. COMPARISON: CHEST 1 VIEW 10/19/2018. TECHNIQUE: 1 view. FINDINGS: Lungs/Pleura: There is mild increase in left lower lung pulmonary markings without lobar consolidation or air bronchogram formation. In the absence of more detailed evaluation with lateral radiograph, there is no convincing evidence of acute airspace disease. No pleural effusion. No pneumothorax. Mediastinum: Within exam limitations, the cardiomediastinal contour is stable. Other: None. IMPRESSION: No convincing acute airspace disease with details as above. RADIA
[2018-11-22 13:57] LABS: BACTERIA,URINE None Seen /HPF (None Seen); RBC,URINE 0-5 /HPF (0-5); SQUAMOUS EPITHELIAL CELL,UR NONE SEEN (<= Few)
[2018-11-22] MEDS: tiZANidine 4 MG TABLET PO SCH (20:53)
[2018-11-22] MEDS: ASPIRIN CHEW 81 MG TABLET PO SCH (20:55)
[2018-11-22] MEDS: SIMVASTATIN 40MG TAB PO SCH (20:56)
[2018-11-22] MEDS: INSULIN GLARGINE 300 UNIT/3 ML PEN SUBQ SCH (21:10)
[2018-11-23] MEDS: SODIUM CHLORIDE FLUSH 0.9% 10 ML SYRINGE IVP SCH ×2 (03:29→08:27)
[2018-11-23 05:39] LABS: BASOPHILS % (AUTO) 0.6 %; EOSINOPHILS # (AUTO) 0.2 10^3/uL (0.0-0.7); EOSINOPHILS % (AUTO) 4.2 %; HGB - HEMOGLOBIN 9.3 g/dL (14.0-18.0); LYMPHOCYTES # (AUTO) 1.7 10^3/uL (1.5-3.5); LYMPHOCYTES % (AUTO) 33.7 %; MEAN CORPUSCULAR HEMOGLOBIN 28.6 pg (27.0-31.0); MEAN CORPUSCULAR VOLUME 89.5 fL (80.0-94.0); MEAN PLATELET VOLUME 9.3 fL (7.4-11.4); MONOCYTES # (AUTO) 0.4 10^3/uL (0.0-1.0); MONOCYTES % (AUTO) 7.7 %; NEUTROPHILS # (AUTO) 2.7 10^3/uL (1.5-6.6); NEUTROPHILS % (AUTO) 53.6 %; PLT - PLATELET COUNT 245 10^3/uL (130-450); RED BLOOD COUNT 3.25 10^6/uL (4.70-6.10); RED CELL DISTRIBUTION WIDTH 13.7 % (12.0-15.0)
[2018-11-23 05:54] LABS: ALBUMIN 3.1 g/dL (3.2-5.5); BILIRUBIN,TOTAL 0.3 mg/dL (0.2-1.0); CALCIUM 8.6 mg/dL (8.5-10.3); CREATININE 0.9 mg/dL (0.6-1.2); TOTAL PROTEIN 6.3 g/dL (6.7-8.2)
[2018-11-23] MEDS: BACLOFEN 10 MG TABLET PO SCH (06:09)
[2018-11-23] MEDS: SODIUM CHLORIDE 0.9% 1,000 ML IV SCH (08:08)
[2018-11-23] MEDS: GABAPENTIN 300 MG CAPSULE PO SCH (08:27)
[2018-11-23] MEDS: CHOLECALCIFEROL 1,000 UNIT TABLET PO SCH (08:27)
[2018-11-23] MEDS: SERTRALINE 50 MG TABLET PO SCH (08:27)
[2018-11-23] MEDS: POLYETHYLENE GLYCOL 3350 17 GM PACKET PO SCH (08:27)
[2018-11-23] MEDS: INSULIN ASPART 300 UNIT/3 ML PEN SUBQ SCH (08:27)
[2018-11-23] MEDS: carBAMazepine ER 200 MG TABLET PO SCH (08:27)
[2018-11-23 08:59] VITALS: BP 134/55
--- NOTE | 2018-11-23 10:07 | Discharge Plan ---
Discharge Plan Problem Reviewed?: Yes Disposition: Home, Self Care Condition: Stable Activity Restrictions: Activity as Tolerated Shower Restrictions: No Driving Restrictions: Yes Instruction Topics: Kidney Probs, Kidney Disease Potassium Health Concerns: Fall from wheelchair led to ER evaluation where kidney stress from dehydration and very high Potassium was found. The Potassium improved with hydration and discontinuing the BP medication Lisinopril (which retains Potassium). Plan of Treatment: Stay better hydrated and NO LONGER take Lisinopril. See PCP if a different BP medication is needed. To avoid dehydration (especially in the summer), I recommend taking the water pill only Mon, Wed, Fri or even stopping it completely, and start to use the zip-up compression stockings, put them on during awake hours (when they arrive) and also elevate feet. Care Goals: Return to previous status. Assessment: Printed directions and summary are for caregiver (). Additional Instructions or Follow Up instructions: Call your doctor to arrange a follow-up appointment. In the interim, return to the ER anytime, if worse or if new symptoms develop. No Smoking: If you smoke, Please STOP! Call for help. Follow-up with: Denis Mccall MD [Primary Care Provider] -
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
== END 2018-11-23 11:03 | disposition home or self-care (01) ==
LOC: EDUNIT# → ED 11:18 → MS2 13:30
PROVIDERS: ADMIT Internal Medicine; ATTEND Internal Medicine
DX: N17.8 Other acute kidney failure (principal); E86.0 Dehydration; E87.5 Hyperkalemia; G35 Multiple sclerosis; R53.1 Weakness; Z79.4 Long term (current) use of insulin; D64.9 Anemia, unspecified; N31.9 Neuromuscular dysfunction of bladder, unspecified; Z87.440 Personal history of urinary (tract) infections; E11.22 Type 2 diabetes mellitus with diabetic chronic kidney disease; I12.9 Hypertensive chronic kidney disease with stage 1 through stage 4 chronic kidney disease, or unspecified chronic kidney disease; N18.9 Chronic kidney disease, unspecified; E66.9 Obesity, unspecified; Z68.31 Body mass index [BMI] 31.0-31.9, adult; S00.91XA Abrasion of unspecified part of head, initial encounter; S50.319A Abrasion of unspecified elbow, initial encounter; V00.811A Fall from moving wheelchair (powered), initial encounter; Z99.3 Dependence on wheelchair
CPT/HCPCS: 36415; 70450; 71045; 72125; 80048; 80053; 81001; 83036; 83690; 84132; 85025; 87086; 90471; 90715; 93005; 96360; 96361; 99281; 99285; A9270; G0378; J1815; 80320; 82607; 82746; 83540; 84466

== ENCOUNTER 2019-03-31 07:00 | Outpatient (CLI) | payer MEDICARE, OTHER | END 2019-03-31 23:59 | disposition home or self-care (01) | LOC: LAB.R 07:00 | PROVIDERS: ATTEND Family Medicine | DX: N39.0 Urinary tract infection, site not specified (principal) | CPT/HCPCS: 87086 ==

== ENCOUNTER 2019-03-31 18:38 | Outpatient (CLI) | payer MEDICARE, OTHER | END 2019-03-31 18:39 | disposition critical access hospital (66) | LOC: EMS 18:38 | PROVIDERS: ATTEND Surgery | DX: R53.83 Other fatigue (principal) | CPT/HCPCS: A0425; A0427 ==

== ENCOUNTER 2019-03-31 18:56 | Emergency (ER) | payer MEDICARE, OTHER ==
--- NOTE | 2019-03-31 19:07 | ED Physician Documentation ---
PD HPI ALTERED MENTAL STATUS - Stated complaint Stated Complaint: LETHARGIC - History obtained from History obtained from: Patient - History of Present Illness Timing - onset: Today (69-year-old gentleman with history of chronic kidney disease, hypertension, diabetes taking insulin, multiple sclerosis, chronic indwelling Thomas and recurrent UTIs presents by ambulance for an episode of altered mental status. He is still mildly confused. He says he was here earlier in the day but there is no record in the chart of that. It sounds like he had an episode of significant confusion and when paramedics found him he had a blood pressure of 60 systolic. His blood pressure is better now and as his mental status. But he still seems mildly confused. He has no pain.) Review of Systems Ten Systems: 10 systems reviewed and negative Constitutional: denies: Fever, Chills, Myalgias, Fatigue, Weight Loss Respiratory: denies: Dyspnea, Cough GI: denies: Abdominal Pain, Nausea, Vomiting : denies: Dysuria PD PAST MEDICAL HISTORY - Past Medical History Cardiovascular: Angina Respiratory: Asthma Neuro: Multiple sclerosis Endocrine/Autoimmune: Type 2 diabetes GI: Esophageal varices : Renal insuffiency Psych: Depression Musculoskeletal: Hemiplegia Derm: Psoriasis - Past Surgical History Past Surgical History: Yes General: Cholecystectomy - Present Medications Home Medications: Ambulatory Orders Medication Instructions Recorded Confirmed Sertraline HCl [Zoloft] 50 mg PO DAILY 09/02/12 03/27/19 Tizanidine HCl 8 mg PO QPM 09/02/12 03/27/19 Insulin Aspart [Novolog Flexpen] 0 - 10 units SUBQ TIDWM 10/20/14 03/27/19 Insulin Glargine [Lantus Solostar] 25 units SUBQ BID 10/20/14 03/27/19 Baclofen 20 mg PO TID 03/01/16 03/27/19 Gabapentin 300 mg PO QPM 03/01/16 03/27/19 Metoprolol Succinate [Toprol Xl] 50 mg PO QPM 03/01/16 03/27/19 Simvastatin 40 mg PO QPM 06/05/16 03/27/19 Aspirin 81 mg PO DAILY PM 07/26/18 03/27/19 Cholecalciferol (Vitamin D3) 1,000 unit PO BID 07/26/18 03/27/19 [Vitamin D3] Furosemide 40 mg PO DAILY 07/26/18 03/27/19 Gabapentin [Neurontin] 600 mg PO BID 09/06/18 03/27/19 carBAMazepine ER [TEGretol XR] 200 mg PO BID 09/06/18 03/27/19 Glatiramer Acetate [Copaxone] 40 mg SUBQ MOWEFR 11/13/18 03/27/19 carBAMazepine [Carbamazepine ER] 200 mg PO DAILY PM 11/13/18 03/27/19 metFORMIN [Glucophage] 2,000 mg PO DAILY 11/21/18 03/27/19 - Allergies Allergies/Adverse Reactions: Allergies Allergy/AdvReac Type Severity Reaction Status Date / Time metformin HCl * Allergy Unknown Rash Verified 03/31/19 19:00 [From Glucophage] tamsulosin HCl * Allergy Unknown Rash Verified 03/31/19 19:00 [From Flomax] sulfamethoxazole AdvReac Hallucinati Verified 03/31/19 19:00 [From Bactrim] ons trimethoprim [From Bactrim] AdvReac Hallucinati Verified 03/31/19 19:00 ons - Social History Does the pt smoke?: No Smoking Status: Former smoker Does the pt drink ETOH?: No Does the pt have substance abuse?: No - Immunizations Immunizations are current?: No Immunizations: TDAP >10years/unknown - POLST Patient has POLST: Yes PD ED PE NORMAL - Vitals Vital signs reviewed: Yes - General General: Alert and oriented X 3 (He seems mildly confused, he knows he is in the hospital and which 1. He denies any pain.) - HEENT HEENT: PERRL, EOMI - Neck Neck: Supple, no meningeal sign, No bony TTP - Cardiac Cardiac: RRR, No murmur - Respiratory Respiratory: No respiratory distress, Clear bilaterally - Abdomen Abdomen: Soft, Non tender - Male Male : Other (Thomas in place with slightly dark urine) - Derm Derm: Normal color, Warm and dry - Extremities Extremities: Other (Moderate bilateral pitting pedal edema) - Neuro Neuro: No motor deficit, No sensory deficit, Normal speech Results - Vitals Vitals: Vital Signs - 24 hr 03/31/19 03/31/19 03/31/19 19:00 19:06 19:46 Temperature 37.3 C Heart Rate 76 75 75 Respiratory 18 18 14 Rate Blood Pressure 111/53 L 105/54 L 114/59 L O2 Saturation 96 97 96 03/31/19 20:22 Temperature Heart Rate 74 Respiratory 19 Rate Blood Pressure 105/63 O2 Saturation 94 Oxygen O2 Source Room air - Labs Labs: Laboratory Tests 03/31/19 03/31/19 03/31/19 19:17 19:27 19:27 WBC 7.4 RBC 3.42 L Hgb 9.3 L Hct 29.7 L MCV 86.8 MCH 27.2 MCHC 31.3 L RDW 13.7 Plt Count 206 MPV 10.0 Neut # (Auto) 5.4 Lymph # (Auto) 1.1 L [place] # (Auto) 0.7 Eos # (Auto) 0.1 Baso # (Auto) 0.0 Absolute Nucleated RBC 0.00 Nucleated RBC % 0.0 PT 16.7 H INR 1.5 H Sodium Potassium Chloride Carbon Dioxide Anion Gap BUN Creatinine Estimated GFR (MDRD) Glucose Lactic Acid Calcium Total Bilirubin AST ALT Alkaline Phosphatase Total Protein Albumin Globulin Albumin/Globulin Ratio Lipase Urine Color YELLOW Urine Clarity HAZY Urine pH 5.0 Ur Specific [place] >=1.030 H Urine Protein 30 H Urine Glucose (UA) 500 H Urine Ketones TRACE Urine Occult Blood MODERATE H Urine Nitrite NEGATIVE Urine Bilirubin NEGATIVE Urine Urobilinogen 0.2 (NORMAL) Ur Leukocyte Esterase SMALL H Urine RBC TNTC H Urine WBC >25 H Urine WBC Clumps PRESENT Ur Squamous Epith Cells NONE SEEN Amorphous Sediment Few Urine Bacteria Many H Ur Microscopic Review INDICATED Urine Culture Comments INDICATED 03/31/19 03/31/19 19:27 19:27 WBC RBC Hgb Hct MCV MCH MCHC RDW Plt Count MPV Neut # (Auto) Lymph # (Auto) [place] # (Auto) Eos # (Auto) Baso # (Auto) Absolute Nucleated RBC Nucleated RBC % PT INR Sodium 131 L Potassium 3.8 Chloride 102 Carbon Dioxide 22 Anion Gap 7.0 BUN 23 H Creatinine 1.3 H Estimated GFR (MDRD) 54 L Glucose 254 H Lactic Acid 1.4 Calcium 7.7 L Total Bilirubin 0.3 AST 29 ALT 29 Alkaline Phosphatase 99 Total Protein 6.2 L Albumin 2.9 L Globulin 3.3 Albumin/Globulin Ratio 0.9 L Lipase 33 Urine Color Urine Clarity Urine pH Ur Specific [place] Urine Protein Urine Glucose (UA) Urine Ketones Urine Occult Blood Urine Nitrite Urine Bilirubin Urine Urobilinogen Ur Leukocyte Esterase Urine RBC Urine WBC Urine WBC Clumps Ur Squamous Epith Cells Amorphous Sediment Urine Bacteria Ur Microscopic Review Urine Culture Comments PD MEDICAL DECISION MAKING - ED course ED course: Spoke with by phone: dark urine yesterday. Slept all day yesterday. Ate ok though. Pushed PO fluids. She got home this afternoon and was doing ok. 20 min after dinner was acting v sleepy and shree. Now doing better, basically at his baseline. His labs are reassuring with a normal white count and negative lactate. Previous cultures reviewed, limited oral options noting sulfa allergy. Spoke with Dr. Mccall by phone and he will set him up for Rocephin in the [facility]. We will leave the IV in place he will need it changed every third day. Departure - Departure Disposition: 01 Home, Self Care Clinical Impression: UTI (lower urinary tract infection), Alteration consciousness Condition: Good Record reviewed to determine appropriate education?: Yes Instructions: CAUTI Catheter Associated Comments: Spoke with Dr. Mccall by phone and he will set him up for Rocephin in the [facility]. We will leave the IV in place he will need it changed every third day.
[2019-03-31 19:28] LABS: BILIRUBIN,URINE NEGATIVE (NEGATIVE); GLUCOSE, URINE (UA) 500 mg/dL (NEGATIVE); KETONES,URINE (UA) TRACE mg/dL (NEGATIVE); LEUKOCYTE ESTERASE, URINE SMALL (NEGATIVE); NITRITE,URINE NEGATIVE (NEGATIVE); OCCULT BLOOD,URINE MODERATE (NEGATIVE); PROTEIN,URINE 30 mg/dL (NEGATIVE); UROBILINOGEN,URINE 0.2 (NORMAL) E.U./dL (NORMAL)
[2019-03-31 19:31] LABS: CLARITY,URINE HAZY (CLEAR)
[2019-03-31 19:38] LABS: BASOPHILS % (AUTO) 0.4 %; EOSINOPHILS # (AUTO) 0.1 10^3/uL (0.0-0.7); EOSINOPHILS % (AUTO) 1.2 %; HGB - HEMOGLOBIN 9.3 g/dL (14.0-18.0); LYMPHOCYTES # (AUTO) 1.1 10^3/uL (1.5-3.5); LYMPHOCYTES % (AUTO) 14.5 %; MEAN CORPUSCULAR HEMOGLOBIN 27.2 pg (27.0-31.0); MEAN CORPUSCULAR HGB CONC 31.3 g/dL (32.0-36.0); MEAN CORPUSCULAR VOLUME 86.8 fL (80.0-94.0); MONOCYTES # (AUTO) 0.7 10^3/uL (0.0-1.0); MONOCYTES % (AUTO) 9.5 %; NEUTROPHILS # (AUTO) 5.4 10^3/uL (1.5-6.6); NEUTROPHILS % (AUTO) 73.9 %; PLT - PLATELET COUNT 206 10^3/uL (130-450); RED BLOOD COUNT 3.42 10^6/uL (4.70-6.10); RED CELL DISTRIBUTION WIDTH 13.7 % (12.0-15.0); WHITE BLOOD COUNT 7.4 x10^3/uL (4.8-10.8)
[2019-03-31 19:47] LABS: AMORPHOUS SEDIMENT,UR Few /LPF; BACTERIA,URINE Many /HPF (None Seen); RBC,URINE TNTC /HPF (0-5); SQUAMOUS EPITHELIAL CELL,UR NONE SEEN (<= Few); WBC CLUMPS,URINE PRESENT
[2019-03-31 19:50] LABS: ALBUMIN 2.9 g/dL (3.2-5.5); ALBUMIN/GLOBULIN RATIO 0.9 (1.0-2.2); BILIRUBIN,TOTAL 0.3 mg/dL (0.2-1.0); CALCIUM 7.7 mg/dL (8.5-10.3); CREATININE 1.3 mg/dL (0.6-1.2); TOTAL PROTEIN 6.2 g/dL (6.7-8.2)
[2019-03-31 19:54] LABS: INR 1.5 (0.8-1.2); PT - PROTHROMBIN TIME 16.7 secs (9.9-12.6)
[2019-03-31] MEDS ORDERED: cefTRIAXone 1 GM in SODIUM CHLORIDE 0.9% MINIBAG 100 ML IV STA (20:25)
[2019-03-31] MEDS ORDERED: SODIUM CHLORIDE 0.9% 1,000 ML IV ONE (20:28)
[2019-03-31 21:49] VITALS: BP 133/78
== END 2019-03-31 21:58 | disposition home or self-care (01) ==
LOC: EDUNIT# → ED 18:56
DX: N39.0 Urinary tract infection, site not specified (principal); R40.4 Transient alteration of awareness; I95.9 Hypotension, unspecified; I12.9 Hypertensive chronic kidney disease with stage 1 through stage 4 chronic kidney disease, or unspecified chronic kidney disease; E11.22 Type 2 diabetes mellitus with diabetic chronic kidney disease; N18.9 Chronic kidney disease, unspecified; Z79.4 Long term (current) use of insulin; G35 Multiple sclerosis; Z79.82 Long term (current) use of aspirin; Z87.891 Personal history of nicotine dependence
CPT/HCPCS: 36415; 80053; 81001; 81003; 83605; 83690; 85025; 85610; 87040; 87077; 87086; 87181; 96365; 99284

== ENCOUNTER 2019-07-14 10:00 | Outpatient (CLI) | payer MEDICARE, OTHER ==
[2019-07-14 12:15] LABS: BILIRUBIN,URINE NEGATIVE (NEGATIVE); GLUCOSE, URINE (UA) NEGATIVE (NEGATIVE); KETONES,URINE (UA) NEGATIVE (NEGATIVE); LEUKOCYTE ESTERASE, URINE MODERATE (NEGATIVE); NITRITE,URINE NEGATIVE (NEGATIVE); OCCULT BLOOD,URINE SMALL (NEGATIVE); PH,URINE 5.5 PH (5.0-7.5); PROTEIN,URINE NEGATIVE (NEGATIVE); UROBILINOGEN,URINE 0.2 (NORMAL) E.U./dL (NORMAL)
[2019-07-14 12:31] LABS: BACTERIA,URINE Many /HPF (None Seen); CLARITY,URINE SL. CLOUDY (CLEAR); SQUAMOUS EPITHELIAL CELL,UR MOD Squamous (<= Few); WBC CLUMPS,URINE PRESENT
== END 2019-07-14 23:59 | disposition home or self-care (01) ==
LOC: LAB.WCP 10:00
PROVIDERS: ATTEND Physician Assistant Medical
DX: N39.0 Urinary tract infection, site not specified (principal)
CPT/HCPCS: 36415; 81001; 87077; 87086; 87181

== ENCOUNTER 2019-09-20 19:38 | Emergency (ER) | payer MEDICARE, OTHER ==
[2019-09-20] MEDS ORDERED: SODIUM CHLORIDE 0.9% 1,000 ML IV STA ×3 (19:47→20:00)
--- NOTE | 2019-09-20 19:57 | ED Physician Documentation ---
History of Present Illness - Stated complaint Stated Complaint: MALE - Chief complaint Chief Complaint: General - History obtained from History obtained from: Patient, Family - History of Present Illness Timing: Today Pain level max: 0 Pain level now: 0 - Additonal information Additional information: Patient is a 69-year-old male with emergency department today with increasing somnolence and low blood pressure. Also darker urine in his catheter. He is wheelchair-bound at baseline. No fevers. Saw his doctor this week and was found to have significantly elevated liver function tests. A CT scan was performed which shows a mass in the pancreatic head. Nothing makes this better or worse. Does not have a GI doctor. Review of Systems Ten Systems: 10 systems reviewed and negative Constitutional: denies: Fever, Chills Throat: denies: Sore throat Cardiac: denies: Chest pain / pressure Respiratory: denies: Cough GI: denies: Abdominal Pain, Nausea, Vomiting, Diarrhea Skin: denies: Rash Musculoskeletal: denies: Neck pain, Back pain Neurologic: denies: Headache PD PAST MEDICAL HISTORY - Past Medical History Past Medical History: Yes Cardiovascular: Angina Respiratory: Asthma Neuro: Multiple sclerosis Endocrine/Autoimmune: Type 2 diabetes GI: Esophageal varices : Renal insuffiency Psych: Depression Musculoskeletal: Hemiplegia Derm: Psoriasis - Past Surgical History Past Surgical History: Yes General: Cholecystectomy - Present Medications Home Medications: Ambulatory Orders Medication Instructions Recorded Confirmed Sertraline HCl [Zoloft] 50 mg PO DAILY 09/02/12 06/25/19 Tizanidine HCl 8 mg PO QPM 09/02/12 06/25/19 Insulin Aspart [Novolog Flexpen] 0 - 10 units SUBQ TIDWM 10/20/14 06/25/19 Insulin Glargine [Lantus Solostar] 25 units SUBQ BID 10/20/14 06/25/19 Baclofen 20 mg PO TID 03/01/16 06/25/19 Gabapentin 300 mg PO QPM 03/01/16 06/25/19 Metoprolol Succinate [Toprol Xl] 50 mg PO QPM 03/01/16 06/25/19 Simvastatin 40 mg PO QPM 06/05/16 06/25/19 Aspirin 81 mg PO DAILY PM 07/26/18 06/25/19 Cholecalciferol (Vitamin D3) 1,000 unit PO BID 07/26/18 06/25/19 [Vitamin D3] Furosemide 40 mg PO DAILY 07/26/18 06/25/19 Gabapentin [Neurontin] 600 mg PO BID 09/06/18 06/25/19 carBAMazepine ER [TEGretol XR] 200 mg PO BID 09/06/18 06/25/19 Glatiramer Acetate [Copaxone] 40 mg SUBQ MOWEFR 11/13/18 06/25/19 carBAMazepine [Carbamazepine ER] 200 mg PO DAILY PM 11/13/18 06/25/19 metFORMIN [Glucophage] 2,000 mg PO DAILY 11/21/18 06/25/19 - Allergies Allergies/Adverse Reactions: Allergies Allergy/AdvReac Type Severity Reaction Status Date / Time metformin HCl * Allergy Unknown Rash Verified 03/31/19 19:00 [From Glucophage] tamsulosin HCl * Allergy Unknown Rash Verified 03/31/19 19:00 [From Flomax] sulfamethoxazole AdvReac Hallucinati Verified 03/31/19 19:00 [From Bactrim] ons trimethoprim [From Bactrim] AdvReac Hallucinati Verified 03/31/19 19:00 ons - Social History Does the pt smoke?: No Smoking Status: Former smoker Does the pt drink ETOH?: No Does the pt have substance abuse?: No - Immunizations Immunizations are current?: No Immunizations: TDAP >10years/unknown - POLST Patient has POLST: Yes PD ED PE NORMAL - Vitals Vital signs reviewed: Yes - General General: Alert and oriented X 3, Other (Jaundiced) - HEENT HEENT: PERRL, Moist mucous membranes, Pharynx benign - Neck Neck: Supple, no meningeal sign - Cardiac Cardiac: RRR, Strong equal pulses - Respiratory Respiratory: No respiratory distress, Clear bilaterally - Abdomen Abdomen: Soft, Non tender, Non distended - Back Back: No CVA TTP, No spinal TTP - Derm Derm: Warm and dry - Extremities Extremities: No edema - Neuro Neuro: Alert and oriented X 3 - Psych Psych: Normal mood, Normal affect Results - Vitals Vitals: Vital Signs - 24 hr 09/20/19 09/20/19 09/20/19 19:40 20:05 20:30 Temperature 36.5 C Heart Rate 77 73 77 Respiratory 18 20 18 Rate Blood Pressure 68/41 L 93/55 L 132/58 H O2 Saturation 96 97 97 09/20/19 09/20/19 21:00 21:30 Temperature Heart Rate 73 77 Respiratory 14 18 Rate Blood Pressure 144/68 H 148/73 H O2 Saturation 100 100 Oxygen O2 Source Room air - Labs Labs: Laboratory Tests 09/20/19 09/20/19 09/20/19 20:08 20:08 20:08 WBC 9.0 RBC 3.45 L Hgb 9.8 L Hct 30.1 L MCV 87.2 MCH 28.4 MCHC 32.6 RDW 14.6 Plt Count 287 MPV 9.6 Neut # (Auto) 6.9 H Lymph # (Auto) 1.0 L [place] # (Auto) 0.9 Eos # (Auto) 0.1 Baso # (Auto) 0.0 Absolute Nucleated RBC 0.00 Nucleated RBC % 0.0 PT 108.3 H INR > 10.0 H* APTT 74.2 H Sodium 135 Potassium 3.5 Chloride 99 L Carbon Dioxide 24 Anion Gap 12.0 BUN 20 Creatinine 1.1 Estimated GFR (MDRD) 66 L Glucose 116 H Calcium 8.4 L Total Bilirubin 5.6 H AST 98 H ALT 145 H Alkaline Phosphatase 819 H Total Protein 7.3 Albumin 2.7 L Globulin 4.6 H Albumin/Globulin Ratio 0.6 L Lipase 22 Urine Color Urine Clarity Urine pH Ur Specific [place] Urine Protein Urine Glucose (UA) Urine Ketones Urine Occult Blood Urine Nitrite Urine Bilirubin Urine Urobilinogen Ur Leukocyte Esterase Urine RBC Urine WBC Ur Squamous Epith Cells Amorphous Sediment Urine Bacteria Ur Microscopic Review Urine Culture Comments 09/20/19 20:18 WBC RBC Hgb Hct MCV MCH MCHC RDW Plt Count MPV Neut # (Auto) Lymph # (Auto) [place] # (Auto) Eos # (Auto) Baso # (Auto) Absolute Nucleated RBC Nucleated RBC % PT INR APTT Sodium Potassium Chloride Carbon Dioxide Anion Gap BUN Creatinine Estimated GFR (MDRD) Glucose Calcium Total Bilirubin AST ALT Alkaline Phosphatase Total Protein Albumin Globulin Albumin/Globulin Ratio Lipase Urine Color BROWN Urine Clarity CLOUDY Urine pH 6.5 Ur Specific [place] 1.025 Urine Protein 100 H Urine Glucose (UA) 100 H Urine Ketones 15 H Urine Occult Blood LARGE H Urine Nitrite POSITIVE H Urine Bilirubin LARGE H Urine Urobilinogen 2 H Ur Leukocyte Esterase MODERATE H Urine RBC 6-10 H Urine WBC >25 H Ur Squamous Epith Cells FEW Squamous Amorphous Sediment Marked Urine Bacteria Many H Ur Microscopic Review INDICATED Urine Culture Comments INDICATED PD MEDICAL DECISION MAKING - ED course Complexity details: reviewed old records, reviewed results, re-evaluated patient, considered differential, d/w patient, d/w family ED course: Patient with liver failure of unclear etiology. 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 May need a stent. His INR was greater than 10. Vitamin K given. He is not on any blood thinners. He is not on warfarin. We do not have GI, MRI or MRCP availability here. Therefore we will transfer him for further care. He responded well to IV fluids. Hypotension resolved. He was also given Rocephin for potential catheter associated UTI. Discussed the case with Dr. Gibbons, hospitalist at [facility] in [place] who graciously accepts in transfer at [id number]. This document was made in part using voice recognition software. While efforts are made to proofread this document, sound alike and grammatical errors may occur. CT scan from 09/17/2019 EXAM: CT ABDOMEN WITHOUT AND WITH CONTRAST EXAM DATE: 09/17/2019 02:41 PM. HISTORY: JAUNDICE. COMPARISON: None. TECHNIQUE: Routine helical CT imaging was performed through the abdomen before and after administration of IV contrast: 100 mL of Optiray 320. Enteric contrast: No. Reconstruction: Coronal and sagittal. In accordance with CT protocol optimization, one or more of the following dose reduction techniques were utilized for this exam: automated exposure control, adjustment of mA and/or KV based on patient size, or use of iterative reconstructive technique. FINDINGS: Lung Bases: Unremarkable. Liver: Normal. No masses. Gallbladder/Bile Ducts: The gallbladder is absent. There is dilatation of the common bile duct measuring up to 12 mm with intrahepatic biliary ductal dilatation. Spleen: Normal. Pancreas: There is abnormal dilatation of the pancreatic duct measuring up to 12 mm with an abrupt cutoff (series 6, image 28). Ill-defined hypodense structure in the head of the pancreas measuring 3.3 x 2.2 cm (series 6, image 31). Adrenal Glands: Normal. Kidneys: There is a simple appearing cyst in the inferior pole of the left kidney measuring up to 5.4 cm. No follow-up imaging. Peritoneal Cavity/Bowel: Normal. No free fluid, free air or adenopathy. No masses or acute inflammatory process. The appendix is well visualized and normal. Vasculature: No aneurysms or other significant abnormality. Bones: No significant abnormality. Other: None. 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 RADIA Boiler Tender: Reading Radiologist: Prema Early MD Releasing Radiologist: Prema Early MD Released Date Time: 09/20/19 1449 Departure - Departure Disposition: 02 Transfer Acute Care Hosp Clinical Impression: Pancreatic mass, Jaundice, Coagulopathy Liver failure Qualifiers: Liver failure chronicity: acute Hepatic coma status: without hepatic coma Qualified Code(s): K72.00 - Acute and subacute hepatic failure without coma Hypotension Qualifiers: Hypotension type: unspecified hypotension type Qualified Code(s): I95.9 - Hypotension, unspecified Condition: Stable
[2019-09-20 20:20] LABS: BASOPHILS % (AUTO) 0.4 %; EOSINOPHILS # (AUTO) 0.1 10^3/uL (0.0-0.7); EOSINOPHILS % (AUTO) 1.3 %; HGB - HEMOGLOBIN 9.8 g/dL (14.0-18.0); LYMPHOCYTES % (AUTO) 11.2 %; MEAN CORPUSCULAR HEMOGLOBIN 28.4 pg (27.0-31.0); MEAN CORPUSCULAR HGB CONC 32.6 g/dL (32.0-36.0); MEAN CORPUSCULAR VOLUME 87.2 fL (80.0-94.0); MEAN PLATELET VOLUME 9.6 fL (7.4-11.4); MONOCYTES # (AUTO) 0.9 10^3/uL (0.0-1.0); NEUTROPHILS # (AUTO) 6.9 10^3/uL (1.5-6.6); NEUTROPHILS % (AUTO) 76.7 %; PLT - PLATELET COUNT 287 10^3/uL (130-450); RED BLOOD COUNT 3.45 10^6/uL (4.70-6.10); RED CELL DISTRIBUTION WIDTH 14.6 % (12.0-15.0)
[2019-09-20 20:27] LABS: PT - PROTHROMBIN TIME 108.3 secs (9.9-12.6)
[2019-09-20 20:31] LABS: ALBUMIN 2.7 g/dL (3.2-5.5); ALBUMIN/GLOBULIN RATIO 0.6 (1.0-2.2); BILIRUBIN,TOTAL 5.6 mg/dL (0.2-1.0); CALCIUM 8.4 mg/dL (8.5-10.3); CREATININE 1.1 mg/dL (0.6-1.2); TOTAL PROTEIN 7.3 g/dL (6.7-8.2)
[2019-09-20 20:39] LABS: PARTIAL THROMBOPLASTIN TIME 74.2 secs (24.9-33.3)
[2019-09-20 20:46] LABS: INR > 10.0 (0.8-1.2)
[2019-09-20 21:00] LABS: GLUCOSE, URINE (UA) 100 mg/dL (NEGATIVE); KETONES,URINE (UA) 15 mg/dL (NEGATIVE); LEUKOCYTE ESTERASE, URINE MODERATE (NEGATIVE); NITRITE,URINE POSITIVE (NEGATIVE); OCCULT BLOOD,URINE LARGE (NEGATIVE); PH,URINE 6.5 PH (5.0-7.5); PROTEIN,URINE 100 mg/dL (NEGATIVE); UROBILINOGEN,URINE 2 E.U./dL (NORMAL)
[2019-09-20 21:01] LABS: BACTERIA,URINE Many /HPF (None Seen); BILIRUBIN,URINE LARGE (NEGATIVE); CLARITY,URINE CLOUDY (CLEAR); ICTOTEST,URINE POSITIVE; SQUAMOUS EPITHELIAL CELL,UR FEW Squamous (<= Few)
[2019-09-20 21:02] LABS: AMORPHOUS SEDIMENT,UR Marked /LPF
[2019-09-20] MEDS ORDERED: cefTRIAXone 1 GM VIAL IVP STA (21:08)
[2019-09-20] MEDS ORDERED: PHYTONADIONE 10 MG/ML AMP SUBQ STA (21:26)
[2019-09-20 23:34] VITALS: BP 133/60
== END 2019-09-20 23:37 | disposition short-term general hospital (02) ==
LOC: ED 19:38
DX: D49.0 Neoplasm of unspecified behavior of digestive system (principal); K72.00 Acute and subacute hepatic failure without coma; I95.9 Hypotension, unspecified; D68.9 Coagulation defect, unspecified; G35 Multiple sclerosis; Z99.3 Dependence on wheelchair; E11.9 Type 2 diabetes mellitus without complications; Z79.4 Long term (current) use of insulin; Z79.82 Long term (current) use of aspirin; Z87.891 Personal history of nicotine dependence
CPT/HCPCS: 36415; 80053; 81001; 81003; 83690; 85025; 85610; 85730; 87077; 87086; 87181; 96361; 96374; 99284

== ENCOUNTER 2019-09-20 23:58 | Outpatient (CLI) | payer MEDICARE, OTHER | END 2019-09-20 23:59 | disposition short-term general hospital (02) | LOC: EMS 23:58 | PROVIDERS: ATTEND Surgery | DX: K72.90 Hepatic failure, unspecified without coma (principal); R17 Unspecified jaundice | CPT/HCPCS: A0425; A0426 ==

== ENCOUNTER 2019-09-28 10:50 | Outpatient (CLI) | payer MEDICARE, OTHER | END 2019-09-28 10:51 | disposition critical access hospital (66) | LOC: EMS 10:50 | PROVIDERS: ATTEND Surgery | DX: R41.82 Altered mental status, unspecified (principal); R82.90 Unspecified abnormal findings in urine | CPT/HCPCS: A0425; A0429 ==

== ENCOUNTER 2019-09-28 11:07 | Emergency (ER) | payer MEDICARE, OTHER ==
[2019-09-28 12:03] LABS: BASOPHILS % (AUTO) 0.5 %; EOSINOPHILS # (AUTO) 0.3 10^3/uL (0.0-0.7); EOSINOPHILS % (AUTO) 3.8 %; HGB - HEMOGLOBIN 9.7 g/dL (14.0-18.0); LYMPHOCYTES # (AUTO) 1.3 10^3/uL (1.5-3.5); LYMPHOCYTES % (AUTO) 18.1 %; MEAN CORPUSCULAR HGB CONC 31.8 g/dL (32.0-36.0); MEAN CORPUSCULAR VOLUME 87.9 fL (80.0-94.0); MEAN PLATELET VOLUME 9.3 fL (7.4-11.4); MONOCYTES # (AUTO) 0.6 10^3/uL (0.0-1.0); MONOCYTES % (AUTO) 8.4 %; NEUTROPHILS # (AUTO) 5.1 10^3/uL (1.5-6.6); NEUTROPHILS % (AUTO) 68.8 %; PLT - PLATELET COUNT 311 10^3/uL (130-450); RED BLOOD COUNT 3.47 10^6/uL (4.70-6.10); RED CELL DISTRIBUTION WIDTH 14.6 % (12.0-15.0); WHITE BLOOD COUNT 7.4 x10^3/uL (4.8-10.8)
--- NOTE | 2019-09-28 12:05 | ED Physician Documentation ---
PD HPI ALTERED MENTAL STATUS - Stated complaint Stated Complaint: AMS - Chief complaint Chief Complaint: Neuro - History obtained from History obtained from: Patient - History of Present Illness Timing - onset: How many days ago (3) Timing - duration: Days (3) Timing - details: Gradual onset, Still present Quality / character: Less responsive, Confused (had had weakness and confusion with UTI and also was jaundiced. Was seem here and transferred to [facility] for UTI and also pancreatic tumor blocking bile duct.) Contributing factors: Diabetic, Recent illness. No: Anticoagulated, Recent med change, Recent injury Basline status: Disoriented Similar symptoms before: Diagnosis (similar weakness and confusion with UTIs in the past.) Recently seen: Emergency Dept, Admitted (had ERCP to see if CBD stentable but unable to get stent past tumor. Had perc drainage of the bile from gallbladder and has had improved color. Is on abx for UTI and getting IV dose daily for this week. Will see Oncology initial appt end of this week.) Review of Systems Constitutional: denies: Fever, Chills, Myalgias Nose: denies: Rhinorrhea / runny nose, Congestion Throat: denies: Sore throat Cardiac: denies: Chest pain / pressure, Palpitations Respiratory: denies: Cough GI: denies: Abdominal Pain, Nausea, Vomiting, Diarrhea Neurologic: denies: Altered mental status, Headache, Head injury PD PAST MEDICAL HISTORY - Past Medical History Cardiovascular: Angina Respiratory: Asthma Neuro: Multiple sclerosis Endocrine/Autoimmune: Type 2 diabetes GI: Esophageal varices : Renal insuffiency Psych: Depression Musculoskeletal: Hemiplegia Derm: Psoriasis Other Past Medical History: pancreatic cancer - Past Surgical History Past Surgical History: Yes General: Cholecystectomy - Present Medications Home Medications: Ambulatory Orders Medication Instructions Recorded Confirmed Sertraline HCl [Zoloft] 50 mg PO DAILY 09/02/12 06/25/19 Tizanidine HCl 8 mg PO QPM 09/02/12 06/25/19 Insulin Aspart [Novolog Flexpen] 0 - 10 units SUBQ TIDWM 10/20/14 06/25/19 Insulin Glargine [Lantus Solostar] 25 units SUBQ BID 10/20/14 06/25/19 Baclofen 20 mg PO TID 03/01/16 06/25/19 Gabapentin 300 mg PO QPM 03/01/16 06/25/19 Metoprolol Succinate [Toprol Xl] 50 mg PO QPM 03/01/16 06/25/19 Simvastatin 40 mg PO QPM 06/05/16 06/25/19 Aspirin 81 mg PO DAILY PM 07/26/18 06/25/19 Cholecalciferol (Vitamin D3) 1,000 unit PO BID 07/26/18 06/25/19 [Vitamin D3] Furosemide 40 mg PO DAILY 07/26/18 06/25/19 Gabapentin [Neurontin] 600 mg PO BID 09/06/18 06/25/19 carBAMazepine ER [TEGretol XR] 200 mg PO BID 09/06/18 06/25/19 Glatiramer Acetate [Copaxone] 40 mg SUBQ MOWEFR 11/13/18 06/25/19 carBAMazepine [Carbamazepine ER] 200 mg PO DAILY PM 11/13/18 06/25/19 metFORMIN [Glucophage] 2,000 mg PO DAILY 11/21/18 06/25/19 Infusion Set For Insulin Pump 1 each MC DAILY #3 infus.set 09/28/19 [Infusion Set] Sodium Chloride 0.45 % [Sodium 1,000 ml IV DAILY 3 Days #3 iv.soln 09/28/19 Chloride] - Allergies Allergies/Adverse Reactions: Allergies Allergy/AdvReac Type Severity Reaction Status Date / Time metformin HCl * Allergy Unknown Rash Verified 03/31/19 19:00 [From Glucophage] tamsulosin HCl * Allergy Unknown Rash Verified 03/31/19 19:00 [From Flomax] sulfamethoxazole AdvReac Hallucinati Verified 03/31/19 19:00 [From Bactrim] ons trimethoprim [From Bactrim] AdvReac Hallucinati Verified 03/31/19 19:00 ons - Social History Does the pt smoke?: No Smoking Status: Never smoker Does the pt drink ETOH?: No Does the pt have substance abuse?: No - Immunizations Immunizations are current?: No Immunizations: TDAP >10years/unknown - POLST Patient has POLST: Yes PD ED PE NORMAL - Vitals Vital signs reviewed: Yes - General General: Alert and oriented X 3, Well developed/nourished - HEENT HEENT: Pharynx benign. No: Moist mucous membranes - Neck Neck: Supple, no meningeal sign, No adenopathy - Cardiac Cardiac: RRR, No murmur, No rub - Respiratory Respiratory: No respiratory distress, Clear bilaterally, Other - Back Back: No CVA TTP - Derm Derm: Normal color, Warm and dry - Extremities Extremities: No tenderness to palpate, Normal ROM s pain, No edema, No calf tenderness / cord - Neuro Neuro: Alert and oriented X 3, No motor deficit, Normal speech Eye Opening: Spontaneous Motor: Localizes to Pain Verbal: None (not answering complex questions) GCS Score: 10 Results - Vitals Vitals: Vital Signs - 24 hr 09/28/19 09/28/19 09/28/19 11:19 11:30 12:00 Temperature 37.3 C Heart Rate 77 70 75 Respiratory 16 18 18 Rate Blood Pressure 132/66 H 126/100 H 139/71 H O2 Saturation 96 99 96 09/28/19 09/28/19 09/28/19 13:00 13:30 14:00 Temperature Heart Rate 70 73 71 Respiratory 16 12 18 Rate Blood Pressure 146/71 H 137/71 H 150/69 H O2 Saturation 98 98 98 09/28/19 14:30 Temperature Heart Rate 72 Respiratory 12 Rate Blood Pressure 153/75 H O2 Saturation 98 Oxygen O2 Source Room air - Labs Labs: Laboratory Tests 09/28/19 09/28/19 09/28/19 11:58 11:58 11:58 WBC 7.4 RBC 3.47 L Hgb 9.7 L Hct 30.5 L MCV 87.9 MCH 28.0 MCHC 31.8 L RDW 14.6 Plt Count 311 MPV 9.3 Neut # (Auto) 5.1 Lymph # (Auto) 1.3 L [place] # (Auto) 0.6 Eos # (Auto) 0.3 Baso # (Auto) 0.0 Absolute Nucleated RBC 0.00 Nucleated RBC % 0.0 Sodium 135 Potassium 3.3 L Chloride 95 L Carbon Dioxide 30 Anion Gap 10.0 BUN 16 Creatinine 0.9 Estimated GFR (MDRD) 83 L Glucose 124 H Lactic Acid Calcium 8.4 L Magnesium 2.1 Total Bilirubin 5.3 H AST 88 H ALT 85 H Alkaline Phosphatase 629 H Ammonia 29.4 Total Protein 7.1 Albumin 2.5 L Globulin 4.6 H Albumin/Globulin Ratio 0.5 L Lipase 67 H Last Dose Date Last Dose Time Carbamazepine 09/28/19 09/28/19 11:58 11:58 WBC RBC Hgb Hct MCV MCH MCHC RDW Plt Count MPV Neut # (Auto) Lymph # (Auto) [place] # (Auto) Eos # (Auto) Baso # (Auto) Absolute Nucleated RBC Nucleated RBC % Sodium Potassium Chloride Carbon Dioxide Anion Gap BUN Creatinine Estimated GFR (MDRD) Glucose Lactic Acid 0.7 Calcium Magnesium Total Bilirubin AST ALT Alkaline Phosphatase Ammonia Total Protein Albumin Globulin Albumin/Globulin Ratio Lipase Last Dose Date UNKNOWN Last Dose Time UNKNOWN Carbamazepine 4.9 PD MEDICAL DECISION MAKING - ED course Complexity details: considered differential (seemed more alert here in ER and with fluids, per daughter. Her strong preference is to be not admitted but to hydrate and then home. He has PICC line for IV abx for the next 5 days. She asks about doing IV fluids in that as well. ), d/w patient Departure - Departure Disposition: Home, Self Care Clinical Impression: Dehydration, Pancreatic cancer Altered mental status Qualifiers: Altered mental status type: disorientation Qualified Code(s): R41.0 - Disorientation, unspecified UTI (urinary tract infection) Qualifiers: Urinary tract infection type: catheter-associated UTI Encounter type: subsequent encounter Condition: Stable Record reviewed to determine appropriate education?: Yes Follow-Up: Denis Mccall MD [Primary Care Provider] - Prescriptions: Infusion Set For Insulin Pump [Infusion Set] 1 each MC DAILY #3 infus.set Sodium Chloride 0.45 % [Sodium Chloride] 1,000 ml IV DAILY 3 Days #3 iv.soln Comments: Contact your primary care for orders for ongoing home infusions through the PICC line in conjunction with the antibiotic to allow ongoing hydration. I would hope is oral intake will improve as the infection is clearing over the next couple of days. Continue his usual medications with the exception of decreasing his insulin some if he is not eating as well. Return if worsening symptoms. Follow-up with the oncology as planned. Discharge Date/Time: 09/28/19 14:55
[2019-09-28 12:16] LABS: ALBUMIN 2.5 g/dL (3.2-5.5); ALBUMIN/GLOBULIN RATIO 0.5 (1.0-2.2); BILIRUBIN,TOTAL 5.3 mg/dL (0.2-1.0); CALCIUM 8.4 mg/dL (8.5-10.3); CREATININE 0.9 mg/dL (0.6-1.2); MAGNESIUM 2.1 mg/dL (1.7-2.8); TOTAL PROTEIN 7.1 g/dL (6.7-8.2)
[2019-09-28] MEDS ORDERED: SODIUM CHLORIDE 0.9% 1,000 ML IV STA ×2 (12:37→13:24)
[2019-09-28 13:01] LABS: CARBAMAZEPINE (TEGRETOL) 4.9 ug/mL
[2019-09-28] MEDS ORDERED: ONDANSETRON 4 MG/2 ML VIAL IVP STA (13:24)
[2019-09-28 14:33] VITALS: BP 153/75
== END 2019-09-28 14:55 | disposition home or self-care (01) ==
LOC: EDUNIT# → ED 11:07
DX: E86.0 Dehydration (principal); R41.0 Disorientation, unspecified; C25.9 Malignant neoplasm of pancreas, unspecified; T83.510A Infection and inflammatory reaction due to cystostomy catheter, initial encounter; Y84.6 Urinary catheterization as the cause of abnormal reaction of the patient, or of later complication, without mention of misadventure at the time of the procedure; G35 Multiple sclerosis; E11.9 Type 2 diabetes mellitus without complications; Z79.4 Long term (current) use of insulin; Z79.82 Long term (current) use of aspirin
CPT/HCPCS: 36415; 80053; 80156; 82140; 83605; 83690; 83735; 85025; 93005; 96361; 96374; 99284